=== PATIENT | female | born 1985 | race Asian ===

== ENCOUNTER → 2021-01-22 15:16 | Outpatient (CLI) | payer SELFPAY | PROVIDERS: Visit Provider Physician Assistant | DX: R30.0 Dysuria (principal) | CPT/HCPCS: 87077; 87086; 87186; 87210 ==

== ENCOUNTER → 2021-01-24 12:21 | Outpatient (CLI) | payer SELFPAY ==
[2021-01-24 13:29] LABS: Add Manual Diff / Slide Review NO; Basophils Absolute Auto 100 /uL (0-100); Basophils Percent Auto 0.8 % (0-2); Eosinophils Absolute Auto 300 /uL (0-450); Eosinophils Percent Auto 3.6 % (2-4); Hematocrit 40.6 % (36-46); Hemoglobin 13.2 g/dL (12.0-16.0); Lymphocytes Absolute Auto 2500 /uL (1100-4500); Lymphocytes Percent Auto 33.1 % (25-40); Mean Corpuscular HGB Conc 32.6 % (30-36); Mean Corpuscular Hemoglobin 26.3 PG (26-34); Mean Corpuscular Volume 80.6 fL (80-100); Monocytes Absolute Auto 800 /uL (0-900); Monocytes Percent Auto 10.3 % (3-14); Neutrophils Absolute Auto 4000 /uL (1500-7000); Neutrophils Percent Auto 52.2 % (50-75); Platelet Count 264 X10^3/uL (150-400); Red Blood Cell Count 5.03 X10^6/uL (4.0-5.2); Red Cell Distribution Width 13.7 % (11.6-14.8); White Blood Cell Count 7.7 X10^3/uL (4.5-11.0)
[2021-01-24 13:51] LABS: Alanine Aminotransferase 19 IU/L (<35); Albumin 4.7 g/dL (3.5-5.0); Albumin Globulin Ratio 1.3 (1.0-2.8); Alkaline Phosphatase 66 U/L (38-126); Aspartate Aminotransferase 23 IU/L (14-36); BUN Creatinine Ratio 14.7 (6-22); Bilirubin Total 0.4 mg/dL (0.2-1.3); Blood Urea Nitrogen 10 mg/dL (7-17); Carbon Dioxide 30 mmol/L (22-32); Chloride 102 mmol/L (98-107); Estimated Glomerular Filt Rate > 60.0 mL/min (>60); Globulin 3.7 g/dL (1.7-4.1); Glucose 141 mg/dL (70-100); HEMOLYSIS < 15 (0-50); Potassium 4.6 mmol/L (3.4-5.1); Sodium 138 mmol/L (137-145); Total Protein 8.4 g/dL (6.3-8.2)
== END ==
PROVIDERS: Referring Provider Physician Assistant; Visit Provider Physician Assistant
DX: Z86.39 Personal history of other endocrine, nutritional and metabolic disease (principal)
CPT/HCPCS: 36415; 80053; 83036; 85025

== ENCOUNTER 2021-03-25 13:38 | Emergency (ER) | payer OTHER, MEDICAID, SELFPAY ==
[2021-03-25 13:59] VITALS: BP 125/76; PULSE 90; RESP 18; TEMP 36.4; O2SAT 100; BMI 27.1
--- NOTE | 2021-03-25 14:05 | DI.US.S_ITS ---
PROCEDURE: US OB <= 14 WEEKS FETUS INDICATIONS: PAIN OUTSIDE/PRIOR DATING DATA: Last menstrual period (LMP): 02/12/2021. LMP-based estimated date of delivery (ALEYDA): 11/19/2021. First dating scan (date and location): 03/25/2021. Estimated date of delivery (ALEDYA) from first dating scan: 11/20/2021. TECHNIQUE: Real-time scanning was performed of the fetus and maternal pelvic organs, with image documentation. Endovaginal scanning was also performed to better visualize the fetus and maternal ovaries. COMPARISON: None. FINDINGS: Single intrauterine gestational sac contains a yolk sac but no pole or cardiac motion. The mean sac diameter would correspond with a 5 week 5 day gestation. Small corpus luteum cyst noted in the right ovary. Both ovaries have appropriate echotexture and vascularity. No adnexal mass or free fluid. IMPRESSION: 1. Intrauterine gestational sac contains yolk sac but no pole or cardiac motion. Differential possibilities include normal early , anembryonic and demise. Consider short-term follow-up. Approved by: Eliceo Gilmore M.D. on 03/25/2021 at 14:55
--- NOTE | 2021-03-25 19:45 | ED_ITS ---
HPI - General Adult General Chief complaint: Urogenital-Female Stated complaint: Lower abd/back pain- 6 weeks Time Seen by Provider: 03/25/21 19:45 Source: patient Mode of arrival: Ambulatory History of Present Illness HPI narrative: 35-year-old currently at just under 6 weeks gestational age with a history of polycystic ovarian syndrome and developing type 2 diabetes presents complaining of cough, pleuritic right chest pain and low pelvic pain cramping to her back. She is having no vaginal bleeding. She has noticed no fevers or chills. She continues to be significantly fatigued. Her initial COVID symptoms were noted on March 11 she does have 2 vaccines. She notes the cough has gotten slightly worse over the past 1-2 days. She notes that she has had dysfunctional uterine bleeding with irregular menses since October. Her last menstrual cycle was July 13. She is going to be following up with Dr. Domínguez. At 1 point in the past she had been on metformin for her polycystic ovary disease it sounds like she has not been on that for the last 6 months and is trying to reestablish care with providers at this time. She denies diarrhea, vomiting, lower extremity edema, significant dyspnea, headache tachycardia or other palpitations.. She does note runny nose and mild itchy throat. Related Data Allergies Allergy/AdvReac Type Severity Reaction Status Date / Time No Known Drug Allergies Allergy Unverified 01/22/21 15:12 Review of Systems Review of Systems Narrative: Remainder of complete review of systems is otherwise unremarkable except for that included in the HPI. Patient History Medical History (Updated 03/25/21 @ 20:11 by Yumiko Hurtado MD) Elevated hemoglobin A1c Polycystic ovarian syndrome Social History Smoking Status: Never smoker Smoking Status: Never smoker Exam Initial Vital Signs Initial Vital Signs: Vital Signs Temperature 97.5 F L 03/25/21 13:59 Pulse Rate 90 03/25/21 13:59 Respiratory Rate 18 03/25/21 13:59 Blood Pressure 125/76 03/25/21 13:59 Pulse Oximetry 100 03/25/21 13:59 General: Healthy appearing, in no acute distress. Able to give a complete and coherent history. Well-nourished well-developed HEENT: Moist mucous membranes, normal sclera with reactive pupils, Neck: No JVD, supple Respiratory: Lungs are clear to auscultation, no wheezing no rales no rhonchi. Full and symmetrical air movement Cardiac: Regular rate and rhythm no murmurs no bruits Abdomen: Soft, very mild bilateral deep pelvic tenderness, no rebound or guarding. Good bowel tones, no flank pain Skin: Warm and dry, no rashes Neurologic: Grossly neurologically intact with no obvious asymmetries or abnormalities Extremities: No trauma, well perfused Psych: Cooperative, appropriate insight and affect Course Orders Ordered: ED Orders 03/25/21 14:05 US OB <= 14 weeks fetus Stat Vital Signs Vital signs: Vital Signs - 8 hr 03/25/21 13:59 Temperature 97.5 F L Pulse Rate 90 Respiratory Rate 18 Blood Pressure 125/76 Pulse Oximetry 100 Medical Decision Making Lab Data Labs: Point of Care Testing Test Results Positive Glucose POC 137 Urine Dip Bedside Urine Glucose Negative Bedside Urine Bilirubin - Negative Bedside Urine Ketone - Negative Urine Specific [place] 1.010 Bedside Urine Occult Blood - Negative Bedside Urine pH 6.0 Bedside Urine Protein - Negative Bedside Urine Urobilinogen - Negative Bedside Urine Nitrite - Negative Bedside Urine Leukocytes - Negative Esterase Point of care testing: Point of Care Testing Test Results Positive Glucose POC 137 Urine Dip Bedside Urine Glucose Negative Bedside Urine Bilirubin - Negative Bedside Urine Ketone - Negative Urine Specific [place] 1.010 Bedside Urine Occult Blood - Negative Bedside Urine pH 6.0 Bedside Urine Protein - Negative Bedside Urine Urobilinogen - Negative Bedside Urine Nitrite - Negative Bedside Urine Leukocytes - Negative Esterase Imaging Data US pelvic: Radiologist's Impression: FINDINGS: Single intrauterine gestational sac contains a yolk sac but no pole or cardiac motion.? The mean sac diameter would correspond with a 5 week 5 day gestation. ? Small corpus luteum cyst noted in the right ovary.? Both ovaries have appropriate echotexture and vascularity.? No adnexal mass or free fluid. ? IMPRESSION: ? 1. Intrauterine gestational sac contains yolk sac but no pole or cardiac motion. Differential possibilities include normal early , anembryonic and demise. Consider short-term follow-up. ? Approved by: Eliceo Gilmore M.D. on 03/25/2021 at 14:55? Discharge Plan Departure Patient Disposition: Home Clinical Impression: Miscarriage, threatened, early , COVID-19, Pleurisy Instructions: DI for Threatened , Pleurisy Activity Restrictions/Additional Instructions: Thank you for coming in today The coughing and scratchy throat, along with the discomfort in the right upper chest with deep breathing are all related to your recent COVID infection. Each of those will continue to improve. You do not need any additional treatment or hospitalization for COVID. You can use dextromethorphan, the active ingredient in Robitussin DM cough medicine as well as Tylenol to help with the pain. Both of these are safe with Congratulations on your . The ultrasound did not show a beating heartbeat which we typically do see by 6 weeks. It may be that you are not quite that for along. It may also be that this is a developing miscarriage and that is why you are having the pelvic cramping. Today we page a quantitative beta HCG, this is the hormone, and needs to be redrawn in 3 days to compare. If it is doubling in that time frame things look good for the . If it is not going up or you began having vaginal bleeding in this is more likely a miscarriage Please contact Dr. Domínguez is office so her office can schedule outpatient beta hCG order for March 28 If you have worsening symptoms or problems please return to the ER Referrals: Christina Domínguez MD [Physician] -
[2021-03-25 19:46] VITALS: BP 145/90; PULSE 95; RESP 20; TEMP 36.8; O2SAT 100
[2021-03-25 20:56] LABS: HCG Quantitative /Beta subunit 9913.8 mIU/mL
== END 2021-03-25 20:34 | disposition home or self-care (01) ==
PROVIDERS: Emergency Provider Emergency Medicine
DX: O20.0 Threatened abortion (principal); O98.511 Other viral diseases complicating pregnancy, first trimester; U07.1 COVID-19; O26.891 Other specified pregnancy related conditions, first trimester; R09.1 Pleurisy; Z3A.01 Less than 8 weeks gestation of pregnancy
CPT/HCPCS: 36415; 76801; 76817; 81003; 81025; 82962; 84702; 86900; 86901; 99283

== ENCOUNTER → 2021-03-28 15:02 | Outpatient (CLI) | payer OTHER, MEDICAID, SELFPAY ==
[2021-03-28 17:56] LABS: HCG Quantitative /Beta subunit 21932 mIU/mL
== END ==
PROVIDERS: Referring Provider Obstetrics & Gynecology; Visit Provider Obstetrics & Gynecology
DX: O20.0 Threatened abortion (principal)
CPT/HCPCS: 36415; 84702

== ENCOUNTER 2021-04-23 00:17 | Emergency (ER) | payer OTHER, MEDICAID, SELFPAY ==
[2021-04-23 00:24] VITALS: BP 136/85; PULSE 85; RESP 20; O2SAT 99; BMI 27.6
[2021-04-23 00:40] VITALS: TEMP 36.7
[2021-04-23 01:10] LABS: Bacteria Urine Few (2-10); RBC Urine 1-5/HPF (0-5/HPF); Squamous Epithelial Cell Urine 5-10 /HPF (0-5/HPF); WBC Urine 1-5/HPF (0-5/HPF)
[2021-04-23 01:40] LABS: Add Manual Diff / Slide Review NO; Basophils Absolute Auto 100 /uL (0-100); Basophils Percent Auto 0.8 % (0-2); Eosinophils Absolute Auto 300 /uL (0-450); Eosinophils Percent Auto 2.5 % (2-4); Hematocrit 39.4 % (36-46); Hemoglobin 12.7 g/dL (12.0-16.0); Lymphocytes Absolute Auto 2400 /uL (1100-4500); Lymphocytes Percent Auto 20.3 % (25-40); Mean Corpuscular HGB Conc 32.2 % (30-36); Mean Corpuscular Hemoglobin 25.8 PG (26-34); Mean Corpuscular Volume 79.9 fL (80-100); Monocytes Absolute Auto 900 /uL (0-900); Monocytes Percent Auto 7.7 % (3-14); Neutrophils Absolute Auto 8000 /uL (1500-7000); Neutrophils Percent Auto 68.7 % (50-75); Platelet Count 251 X10^3/uL (150-400); Red Blood Cell Count 4.93 X10^6/uL (4.0-5.2); Red Cell Distribution Width 15.7 % (11.6-14.8); White Blood Cell Count 11.6 X10^3/uL (4.5-11.0)
[2021-04-23 01:43] LABS: BUN Creatinine Ratio 11.5 (6-22); Blood Urea Nitrogen 6 mg/dL (7-17); Calcium 9.2 mg/dL (8.4-10.2); Carbon Dioxide 23 mmol/L (22-32); Chloride 104 mmol/L (98-107); Estimated Glomerular Filt Rate > 60.0 mL/min (>60); Glucose 111 mg/dL (70-100); HEMOLYSIS < 15 (0-50); Potassium 3.9 mmol/L (3.4-5.1); Sodium 137 mmol/L (137-145)
[2021-04-23 02:01] LABS: HCG Quantitative /Beta subunit 84423 mIU/mL
--- NOTE | 2021-04-23 02:09 | ED_ITS ---
HPI - Female Genitourinary General Chief complaint: Urogenital-Female Stated complaint: 9 weeks preg bloody discharge Time Seen by Provider: 04/23/21 01:29 Source: patient Mode of arrival: Ambulatory Limitations: no limitations History of Present Illness HPI Narrative: This is a 35-year-old female who is 10 weeks 2 days. Presents for abdominal cramping with some spotting. Patient has had some mild nausea. She has PCOS and was diagnosed with type 2 diabetes but is diet controlled only. Patient was seen for abdominal cramping and had ultrasound x2 including with Dr. Domínguez who she is established with. She had not been having any vaginal bleeding until the 22 of April on his continued to have some and today the . She has not had any fevers or chills. She has had nausea but no vomiting. No chest pain or shortness of breath. No cough, cold or congestion. She has had some frequency but no dysuria urgency. She has had spotting but no large clots. She describes it as scan or small amount of blood. She has had normal bowel movements. Related Data Home Medications Medication Instructions Recorded Confirmed doxylamine succinate 25 mg tablet 25 mg PO BEDTIME PRN 04/15/21 04/15/21 (Unisom (doxylamine)) prenat.vits,tal,qbz-mwob-halws 1 tab PO DAILY 04/15/21 04/15/21 pyridoxine (vitamin B6) 100 mg 100 mg PO QID 04/15/21 04/15/21 tablet Previous Rx's Medication Instructions Recorded cephalexin 500 mg capsule 500 mg PO BID 5 Days #10 cap 04/23/21 Allergies Allergy/AdvReac Type Severity Reaction Status Date / Time No Known Drug Allergies Allergy Unverified 04/05/21 14:00 Review of Systems Review of Systems ROS Unobtainable: All systems reviewed & are unremarkable except as noted in HPI and below Patient History Medical History Cough COVID-19 virus infection Diabetes Elevated hemoglobin A1c Low back problem Polycystic ovarian syndrome Sinusitis UTI in Surgical History History of wisdom tooth extraction Family History Father Diabetes mellitus Asthma Mother Hypertension Unknown Cervical cancer Sister Thalassemia Sister Iron deficiency anemia Exam Narrative Exam Narrative: GENERAL: Alert and oriented x three, mild distress. HEENT: Head normocephalic, atraumatic, EOMI, pupils reactive, face symmetric, moist mucous membranes NECK: Supple, full range of motion CARDIOVASCULAR: Regular rate and rhythm without murmurs, rubs or gallops. RESPIRATORY: Breath sounds equal bilaterally, no wheezes rales or rhonchi. ABDOMEN: Soft, generalized tenderness. Normoactive bowel sounds all 4 quadrants. No guarding or rebound, rigidity, no mass : No CVA tenderness EXTREMITIES: Normal range of motion, no clubbing or edema. Neurovascularly intact NEUROLOGICAL: Cranial nerves II through XII grossly intact. Moving all extremities SKIN: Warm, dry, no petechiae, no rashes or lesions. Initial Vital Signs Initial Vital Signs: Vital Signs Pulse Rate 85 04/23/21 00:24 Respiratory Rate 20 04/23/21 00:24 Blood Pressure 136/85 04/23/21 00:24 Pulse Oximetry 99 04/23/21 00:24 Course Orders Ordered: ED Orders 04/23/21 00:25 Urine Culture Stat Urine Microscopic Stat 04/23/21 00:50 BMP [Basic Metabolic Panel] Stat CBC Auto Diff [Complete Blood Count AUTO DIFF] Stat HCG Quantitative /Beta subunit Stat 04/23/21 02:33 US renal complete Stat Discontinued Medications Acetaminophen (Acetaminophen 325 Mg Tablet) 650 mg PO NOW ONE Stop: 04/23/21 03:29 Last Admin: 04/23/21 03:34 Dose: 650 mg Documented by: RADHA Cephalexin HCl (Cephalexin 250 Mg Capsule) 500 mg PO NOW ONE Stop: 04/23/21 03:29 Last Admin: 04/23/21 03:35 Dose: 500 mg Documented by: RADHA Reevaluation(s) Reevaluation #1: Reviewed patient's ultrasound findings. Urine culture did show some resistance but not antibiotics patient was on. She does have clinical symptoms. Urine culture was ordered urine had hematuria but no other clear changes. Patient would elect to start antibiotics if she has symptoms. Plan to start her on Keflex. She has OB follow-up today so plan for Ob ultrasound at that time. He art rate was appropriate on ultrasound. Vital Signs Vital signs: Vital Signs - 8 hr 04/23/21 00:24 04/23/21 00:40 04/23/21 03:36 Temperature 98.1 F Pulse Rate 85 81 Respiratory Rate 20 16 Blood Pressure 136/85 117/75 Pulse Oximetry 99 99 MDM - Female Genitourinary Lab Data Result diagrams: 04/23/21 00:50 04/23/21 00:50 Labs: Lab Results 04/23/21 04/23/21 04/23/21 Range/Units 00:25 00:50 00:50 WBC 11.6 H (4.5-11.0) X10^3/uL RBC 4.93 (4.0-5.2) X10^6/uL Hgb 12.7 (12.0-16.0) g/dL Hct 39.4 (36-46) % MCV 79.9 L (80-100) fL MCH 25.8 L (26-34) PG MCHC 32.2 (30-36) % RDW 15.7 H (11.6-14.8) % Plt Count 251 (150-400) X10^3/uL Neut % (Auto) 68.7 (50-75) % Lymph % (Auto) 20.3 L (25-40) % [place] % (Auto) 7.7 (3-14) % Eos % (Auto) 2.5 (2-4) % Baso % (Auto) 0.8 (0-2) % Neut # (Auto) 8000 H (5919-7429) /uL Lymph # (Auto) 2400 (2339-4986) /uL [place] # (Auto) 900 (0-900) /uL Eos # (Auto) 300 (0-450) /uL Baso # (Auto) 100 (0-100) /uL Sodium 137 (137-145) mmol/L Potassium 3.9 (3.4-5.1) mmol/L Chloride 104 (98-107) mmol/L Carbon Dioxide 23 (22-32) mmol/L BUN 6 L (7-17) mg/dL Creatinine 0.52 (0.52-1.04) mg/dL Estimated GFR > 60.0 (>60) mL/min BUN/Creatinine Ratio 11.5 (6-22) Glucose 111 H (70-100) mg/dL Calcium 9.2 (8.4-10.2) mg/dL HCG, Quant 56526 mIU/mL Urine RBC 1-5/hpf (0-5/HPF) Urine WBC 1-5/hpf (0-5/HPF) Ur Squamous Epith Cells 5-10 /hpf H (0-5/HPF) Urine Bacteria Few (2-10) H (None) Ur Culture Indicated? Culture not indicate Point of Care Testing Test Results Positive Urine Dip Bedside Urine Glucose Negative Bedside Urine Bilirubin - Negative Bedside Urine Ketone - Negative Urine Specific [place] 1.015 Bedside Urine Occult Blood +++ Bedside Urine pH 6.0 Bedside Urine Protein - Negative Bedside Urine Urobilinogen - Negative Bedside Urine Nitrite - Negative Bedside Urine Leukocytes - Negative Esterase Imaging Data renal US.: Radiologist's Impression: Normal kidneys. Single live intrauterine gestation with heart rate of 160. MDM Narrative Medical decision making narrative: This is a 35-year-old female at 10 into with vaginal bleeding and pelvic cramping. Patient has had cramping but no bloody discharge. Her labs are appropriate, she is O positive. Patient has had some urinary symptoms. Urine is inconclusive both her symptoms she elects start antibiotics to purnimas michelle pineda. Renal ultrasound was obtained she has had some flank discomfort and does not show acute changes. Heart rates appropriate. Patient has an appointment 2 day with her OBGYN which she is going to attend so pelvic ultrasound was deferred until she sees her OB. Discharge Plan Departure Patient Disposition: Home Clinical Impression: Vaginal bleeding in Instructions: DI for Vaginal Bleeding During Activity Restrictions/Additional Instructions: Follow up with Dr. Domínguez at your appointment today. Urine culture is pending. You may take keflex 1 tablet twice daily x 5 days. Prescription sent to [place] pharmacy. Please return for fever, new worsening abdominal, back or flank pain, persistent vomiting, worsening vaginal bleeding going through more than 1 pad an hour, lightheadedness or passing out, new chest pain or shortness of breath or other new or concerning symptoms. Prescriptions: New cephalexin 500 mg capsule 500 mg PO BID 5 Days Qty: 10 0RF No Action prenat.vits,tal,cuj-hymu-icmyn Tablet 1 tab PO DAILY 0RF Unisom (doxylamine) 25 mg tablet 25 mg PO BEDTIME PRN0RF pyridoxine (vitamin B6) 100 mg tablet 100 mg PO QID 0RF Referrals: [place],Christina, MD [Physician] - Miscellaneous,Doctor, MD [Primary Care Provider] -
--- NOTE | 2021-04-23 02:33 | DI.US.S_ITS ---
PROCEDURE: US RENAL COMPLETE INDICATIONS: BACK/FLANK PAIN TECHNIQUE: Real-time scanning was performed of the kidneys and bladder, with image documentation. COMPARISON: None. FINDINGS: Kidneys: Kidneys are normal in size. Right kidney measures 12.3 cm long; left kidney measures 10.5 cm long. Right renal cortical thickness is 2.1 cm; left renal cortical thickness is 1.9 cm. Renal cortical echotexture is normal. No hydronephrosis or nephrolithiasis. No suspicious solid mass lesions. Bladder: Urinary bladder was not well imaged as it was not distended at time of examination. Miscellaneous: No free pelvic fluid. Single living intrauterine gestation with heart rate measuring 160 beats per minute. IMPRESSION: Normal sonographic appearance of the bilateral kidneys. No significant discrepancy with the dope and fabric worker radiology preliminary report. Dictated by: Mohan Merrill M.D. on 04/23/2021 at 7:06 Approved by: Mohan Merrill M.D. on 04/23/2021 at 7:07
[2021-04-23] MEDS: ACETAMINOPHEN 325 MG TABLET 650 MG PO (03:34)
[2021-04-23] MEDS: cephALEXin 250 MG CAPSULE 500 MG PO (03:35)
[2021-04-23 03:36] VITALS: BP 117/75; PULSE 81; RESP 16; O2SAT 99
== END 2021-04-23 03:45 | disposition home or self-care (01) ==
PROVIDERS: Emergency Provider Emergency Medicine
DX: O20.9 Hemorrhage in early pregnancy, unspecified (principal); Z3A.10 10 weeks gestation of pregnancy; O99.810 Abnormal glucose complicating pregnancy
CPT/HCPCS: 36415; 76770; 80048; 80053; 81003; 81015; 81025; 83615; 84550; 84702; 85025; 87086; 99283; 99284

== ENCOUNTER → 2021-04-23 12:13 | Outpatient (CLI) | payer OTHER, MEDICAID, SELFPAY ==
[2021-04-23 13:34] LABS: Alanine Aminotransferase 13 IU/L (<35); Albumin 4.6 g/dL (3.5-5.0); Albumin Globulin Ratio 1.3 (1.0-2.8); Alkaline Phosphatase 45 U/L (38-126); Aspartate Aminotransferase 22 IU/L (14-36); BUN Creatinine Ratio 9.8 (6-22); Bilirubin Total 0.4 mg/dL (0.2-1.3); Blood Urea Nitrogen 6 mg/dL (7-17); Calcium 9.5 mg/dL (8.4-10.2); Carbon Dioxide 27 mmol/L (22-32); Chloride 102 mmol/L (98-107); Estimated Glomerular Filt Rate > 60.0 mL/min (>60); Globulin 3.6 g/dL (1.7-4.1); Glucose 98 mg/dL (70-100); HEMOLYSIS < 15 (0-50); Lactate Dehydrogenase 282 U/L (313-618); Potassium 3.8 mmol/L (3.4-5.1); Sodium 136 mmol/L (137-145); Total Protein 8.2 g/dL (6.3-8.2); Uric Acid 3.9 mg/dL (2.5-6.2)
== END ==
PROVIDERS: Referring Provider Obstetrics & Gynecology; Visit Provider Obstetrics & Gynecology
DX: O99.810 Abnormal glucose complicating pregnancy (principal)
CPT/HCPCS: 36415; 80053; 83615; 84550

== ENCOUNTER → 2021-05-07 08:29 | Outpatient (CLI) | payer OTHER, MEDICAID, SELFPAY ==
--- NOTE | 2021-05-09 17:23 | DIAB.INIT ---
Initial Diabetes Education Assessment Name: Anna Valderrama Dx: Diabetes in Provider: Frankford ALEYDA: 11/24/21 Weeks: 11 Anna presents for initial visit regarding diabetes in . +FH father T2DM. 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 Endorses PMH of PCOS in 2011, was on Metformin. Antoine increased hunger with Metformin and stopped. Tried to treat with diet and exercise for one year successfully. Seemed difficulty to sustain. [place] stressful job, no menses for a few months. Tried juice detox diet, which she felt was helpful. Late 2019 she noticed that her BG were elevated. Diagnosed with T2Dm in Feb 2020. She started Metformin again 500mg BID. Took Metformin 3 months, did not cont. Reports that last January she came into clinic with a bladder infection and found hgA1c 7%. High carb intake, primarily with amt of rice. Diet recall: 10a: 1/2c grits with pro ; 1.5-2c rice with veg and pro ; cereal with banana and milk (15-90g CHO) 2-3p: 2c rice with sardines and veg +/- fruit (90-105g CHO) 7-8p: 1/2-1c rice with pro and veg ; 1/2c potato with pro and veg 15-45g CHO) 11p: +/- milk with crackers (29g CHO) Beverages: 6oz water with 1TBS sugar and lemon (15g CHO), 2-3L water, 8oz milk Anthropometrics: Ht: 63 Wt: 151# today Prepreg wt: 156.7# Wt changes: -5.7# Physical Activity: Was walking 2 x per week for 60 min, weather dependent. Less walking lately due to concerns with bleeding. This has subsided per report. She is interested in trying yoga. Self-Monitoring Blood Glucose: 239 mg/dL highest BG reading, high carb intake reported, earlier this month. Sometimes 98 fasting. No consistent SMBG. Has a hard time with finger pricks. Reported BG below. No meter for review. Most elevated. Date Pre Post Pre Post Pre Post HS 2/ 158 2hr 2/14 117 143 2hr 3/2 239 2hr 119 2hr 122 2hr 3/15 198 2hr rice and scarlet Diabetes Medications: None Pertinent Labs: HgA1c: 7% 01/2021 Past Medical History: (Last Updated 04/26/21 @ 19:10 by Juliane Samson) Acne (~2011) Chicken pox Childhood Cough COVID-19 virus infection Diabetes (~2020) Disc prolapse (~2015) Elevated hemoglobin A1c Frequent UTI (~2020) History of wisdom tooth extraction Irregular menstrual cycle (~2011) Low back problem Mumps Childhood Ovarian cyst (~2011) Painful menstrual periods (~2011) Polycystic ovarian syndrome Rhinosinusitis (~2010) Sinusitis Sleep apnea (~2017) UTI in Intervention: This participant was very receptive. Provided appropriate educational handouts. Discussed the following topics: Completed intake assessment. Discussed barriers to care. Pathophysiology of type 2 diabetes in , genetic predisposition and minority risk, impact hormones on insulin resistance in 2nd trimester HgA1c Importance of self-monitoring, how often, and when to check. FBG and pc Plate Method, impact of macronutrients on blood sugar, meal timing, carbohydrate counting, pairing macronutrients and spreading out carbohydrates for better blood glucose management General recommended servings for carbohydrates at meals and snacks Role of physical activity and following provider guidelines for safety Created SMART goals for patient self-care and success. Goals: Reduce rice intake to 1c at meals Dont eat fruit with rice at meals (move to snacks) Check BG 4x per day, if she can Try yoga Follow-up: TAMMI ROCHE follow-up in 1 week for BG review. Anna may be a good candidate for DM medication during given 01/2021 HgA1c and reported hyperglycemia. Though it is possible that with great reduction in carb intake and increase in safe physical activity her numbers will come down. Will re-eval in one week. She sees OB this week. Judy Israel RDN, [facility] Certified Diabetes Care and Supervisor Word Processing P: [phone] Thank you for this referral
== END ==
PROVIDERS: PCP Family Medicine; Referring Provider Obstetrics & Gynecology; Visit Provider Obstetrics & Gynecology
DX: O24.410 Gestational diabetes mellitus in pregnancy, diet controlled (principal); Z3A.11 11 weeks gestation of pregnancy; Z71.3 Dietary counseling and surveillance
CPT/HCPCS: G0108

== ENCOUNTER → 2021-05-13 10:40 | Outpatient (CLI) | payer OTHER, MEDICAID, SELFPAY ==
--- NOTE | 2021-05-13 13:02 | DIAB.FU ---
Follow-up Diabetes Education Assessment Name: Anna Valderrama Time: 10:40-11:35a Dx: Diabetes in Provider: Makinen ALEYDA: 11/24/21 Weeks: 12 Anna presents for follow-up visit regarding diabetes in . She presents with partner, Lencho. Anna has been checking BG 3-4 x per day. Most numbers are elevated indicating potential need for medication management. She has reduced her carb intake, especially rice to 1c or less at meals. Minimal changes to physical activity. States she feels pretty comfortable taking an oral medication to manage DM. In review of food intake, most meals are around 45g CHO, some 60g meals. Endorses fasting 8+ hours overnight (often 10-12 hours). Endorses some nausea. Anthropometrics: Ht: 63 Wt: 150# last OB visit on 05/10 Prepreg wt: 159# Wt changes: -9# Physical Activity: No program. Main barrier is she feels she is very sensitive to the cooler weather. Does not want to walk outside in weather. Limited in gym usage due to she does not drive. Plans to try video exercises at home this week. Self-Monitoring Blood Glucose: All but one elevated FBG this week. Pc 2 hour: 3/5 elevated breakfast, 1/3 elevated lunch, 3/5 elevated dinner. Also, states she has been using a relative's meter and buying supplies out of pocket. No rx on file for SMBG supplies currently. Date Pre Post Pre Post Pre Post HS 05/08 107 94 148 153 05/09 91 127 112 117 / 103 94 109 4/2 102 138 122 /3 101 126 122 /4 107 165 Diabetes Medications: None Pertinent Labs: HgA1c: 7% 01/2021 Past Medical History: (Last Updated 04/26/21 @ 19:10 by Juliane Samson) Acne (~2011) Chicken pox Childhood Cough COVID-19 virus infection Diabetes (~2020) Disc prolapse (~2015) Elevated hemoglobin A1c Frequent UTI (~2020) History of wisdom tooth extraction Irregular menstrual cycle (~2011) Low back problem Mumps Childhood Ovarian cyst (~2011) Painful menstrual periods (~2011) Polycystic ovarian syndrome Rhinosinusitis (~2010) Sinusitis Sleep apnea (~2017) UTI in Intervention: This participant was very receptive. Provided appropriate educational handouts. Discussed the following topics: Recent blood sugar results and trends Medication management potential and safety Review of general nutrition recommendations and current intake Physical activity plan and impact on blood sugars Importance of getting meter/supply rx to avoid out of pocket expense. Created SMART goals for patient self-care and success. Goals: Reduce rice intake to 1c at meals - met Dont eat fruit with rice at meals (move to snacks)- met Check BG 4x per day, if she can - met Try yoga- in progress Try walking videos- new Cont BG checks- cont Set up portal to message provider prn- new Follow-up: TAMMI ROCHE follow-up in 1-2 weeks. Will pair visit with OB visit. Transportation is a concern for her. It does seem that she may benefit from medication management. She is concerned that maybe a new meter may provide better results. With previous HgA1c and current BG readings, medication to reduce fasting BG may be beneficial. Will message provider about current BG trends and meter rx. Judy Israel RDN, [facility] Certified Diabetes Care and [employer] Operator P: [phone] Thank you for this referral
== END ==
PROVIDERS: PCP Family Medicine; Referring Provider Obstetrics & Gynecology; Visit Provider Obstetrics & Gynecology
DX: O24.410 Gestational diabetes mellitus in pregnancy, diet controlled (principal); Z3A.12 12 weeks gestation of pregnancy; Z71.3 Dietary counseling and surveillance
CPT/HCPCS: G0108

== ENCOUNTER → 2021-05-23 16:53 | Outpatient (CLI) | payer OTHER, MEDICAID, SELFPAY ==
--- NOTE | 2021-05-24 17:20 | DIAB.GDFU ---
Follow-up Gestational Diabetes Assessment Name: Anna Valderrama Date: 05/24/21 Time: 5-745p Dx: Diabetes in Provider: Sang ALEYDA: 11/24/21 Weeks: 13 Anna presents for follow-up visit regarding diabetes in . She presents with partner, Lencho. Frequent hyperglycemia. Saw OB today and plans to start Metformin 500mg BID. Reports increase in n/v recently. Aims for 2.5-3L but sometimes only 2L. Reports dry lips and headaches. Possibly some dehydration. Diet recall indicates reduced carb intake at meals. Skipping HS snack recently. Anthropometrics: Ht: 63 Wt: 150.2# today at OB Prepreg wt: 159# Wt changes: -8.8# Physical Activity: Tried walking videos and yoga. No consistent program. Does not walk outside due to cool weather. Self-Monitoring Blood Glucose: waking at 1030am due to late night schedule with 's work hours. This results in 2 meals per day and therefore 2 pc readings. Checking FBG and 2hr pc. Bolded elevations below. 4/7 elevated FBG, 4/7 elevated pc breakfast, 4/6 elevated pc dinner readings. Only in range FBG is when she goes >12hours without eating due to nausea. Also received meter and supply rx today. Date Pre Post Pre Post Pre Post HS 05/17 88 142 131 4/9 86 108 134 /10 104 148 151 /11 103 129 144 /12 100 118 136 /13 105 132 150 /14 90 168 Diabetes Medications: Rx'd Metformin 500mg BID Pertinent Labs: HgA1c: 7% 01/2021 Intervention: This participant was very receptive. Provided appropriate educational handouts. 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 Thank you for this referral
== END ==
PROVIDERS: PCP Family Medicine; Referring Provider Obstetrics & Gynecology; Visit Provider Obstetrics & Gynecology
DX: O24.415 Gestational diabetes mellitus in pregnancy, controlled by oral hypoglycemic drugs (principal); Z71.3 Dietary counseling and surveillance; Z3A.13 13 weeks gestation of pregnancy
CPT/HCPCS: G0108

== ENCOUNTER → 2021-06-07 11:59 | Outpatient (CLI) | payer OTHER, MEDICAID, SELFPAY ==
[2021-06-07 12:36] LABS: Add Manual Diff / Slide Review NO; Basophils Absolute Auto 100 /uL (0-100); Basophils Percent Auto 0.5 % (0-2); Eosinophils Absolute Auto 200 /uL (0-450); Eosinophils Percent Auto 2.1 % (2-4); Hematocrit 39.8 % (36-46); Hemoglobin 13.3 g/dL (12.0-16.0); Lymphocytes Absolute Auto 1600 /uL (1100-4500); Mean Corpuscular HGB Conc 33.4 % (30-36); Mean Corpuscular Hemoglobin 27.4 PG (26-34); Monocytes Absolute Auto 800 /uL (0-900); Monocytes Percent Auto 7.5 % (3-14); Neutrophils Absolute Auto 7800 /uL (1500-7000); Neutrophils Percent Auto 74.9 % (50-75); Platelet Count 233 X10^3/uL (150-400); Red Blood Cell Count 4.85 X10^6/uL (4.0-5.2); Red Cell Distribution Width 15.9 % (11.6-14.8); White Blood Cell Count 10.4 X10^3/uL (4.5-11.0)
[2021-06-07 12:53] LABS: Hemoglobin A1C% w Est Avg Glu 6.1 % (4.0-6.0)
--- NOTE | 2021-06-07 17:11 | DIAB.FU ---
Addendum entered by Judy Israel 06/14/21 16:59: 06/14/21 phone call check-in. OB increased Metformin to 1000mg pm and keeping 500mg am. Seems to be very helpful in BG management. Anna seems to be very worried when BG are <90 and fears for lows. Discussed this in depth (low risk of hypo, s/s of hypo, hypo tx). All recent FBG since starting Metformin in goal. Most after meal in range now. Elevations that occur are r/t excessive CHO intake. For example, this morning she consumed spring rolls and chocolate beverage, BG pc was 148mg/dL. Encouraged her to avoid sugar sweetened beverages. f/u in one week in-person. Original Note: Follow-up Diabetes Education Assessment Name: Anna Valderrama Date: 06/07/21 Time: 1230-130p Dx: Diabetes in Provider: Sang ALEYDA: 11/24/21 Weeks: 15 Anna presents for follow-up visit regarding diabetes in . She presents with partner, Lencho. Established care with PCP today. Has been taking Metformin BID with minimal GI upset. States she has not been taking Metformin if BG is low. Describes a time of skipping dose at night when pc reading was 112 mg/dL or potentially when FBG in 80s. Worried about lows, despite low risk. Improved nausea and wt gain. Denies any s/s dehydration, no more dry lips. Fluids 1.5-2L per day reportedly. Endorses high carb intake, ie 3c rice + fruit resulting in BG 147mg/dL. States she sometimes feels very hungry. This may in part due to long periods of fasting. Eats 3x per day, limited snacks and only 2 meals. Endorses feeling fatigue after meals. Anthropometrics: Ht: 63 Wt: 151.4# today at PCP Prepreg wt: 159# Wt changes: +1.2# since last visit Physical Activity: Limited. No program. More amenable to walking outside now that weather is warmer. Self-Monitoring Blood Glucose: Much improved FBG. 1/5 recent elevations. pc breakfast 1/4 elevations. 3/4 elevated pc dinner. Elevations seem r/t high carb intake. States when she sticks to 1c rice, numbers are in range. Did not check for a couple days due to birthday and family visit. Date Pre Post Pre Post Pre Post HS 05/29 92 111 112 05/30 92 114 129 06/03 06/04 06/05 98 147 137 06/06 87 117 128 06/07 89 Diabetes Medications: 500mg Metformin BID Pertinent Labs: Improved HgA1c form prior 7%. Goal recc prepregnancy 6.5% Hemoglobin A1c 6.1 % (4.0-6.0) H 06/07/21 12:04 Past Medical History: (Last Updated 05/23/21 @ 16:56 by Christina Domínguez MD) Acne (~2011) Chicken pox Childhood Cough COVID-19 virus infection Diabetes (~2020) Disc prolapse (~2015) Elevated hemoglobin A1c Frequent UTI (~2020) History of wisdom tooth extraction Irregular menstrual cycle (~2011) Low back problem Mumps Childhood Ovarian cyst (~2011) Painful menstrual periods (~2011) Polycystic ovarian syndrome Rhinosinusitis (~2010) Sinusitis Sleep apnea (~2017) UTI in Intervention: This participant was very receptive. Provided appropriate educational handouts. Discussed the following topics: Recent blood sugar results and trends Medication management, low risk for lows with Metformin, enc her to cont taking at this time. Fluids recs and hydration Review of general nutrition recommendations and current intake, eating small frequent meals/snacks to prevent over consumption / excessive hunger Physical activity plan and impact on blood sugars Importance of getting BG in range early for health and baby and mom Created SMART goals for patient self-care and success. 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 Judy Israel RDN, KALEY Certified Diabetes Care and Animal Care Worker P: [phone] Thank you for this referral
[2021-06-08 06:11] LABS: RPR Screen Non Reactive (Non Reactive)
[2021-06-08 07:22] LABS: Varicella IgG Antibody 571 index (Immune >165)
[2021-06-10 17:12] LABS: Hepatitis B Surface Antigen NEGATIVE s/c (NEGATIVE)
[2021-06-10 17:59] LABS: HIV 1 & 2 Ab/Ag 4th Gen Combo NEGATIVE (NEGATIVE); Hep C Virus Ab w/Reflex Quant NEGATIVE s/c (NEGATIVE)
== END ==
PROVIDERS: PCP Family Medicine; Referring Provider Obstetrics & Gynecology; Visit Provider Obstetrics & Gynecology
DX: O24.415 Gestational diabetes mellitus in pregnancy, controlled by oral hypoglycemic drugs (principal); Z3A.15 15 weeks gestation of pregnancy; Z71.3 Dietary counseling and surveillance
CPT/HCPCS: 36415; 80055; 83036; 86787; 86803; 86850; 86900; 86901; 87389; G0108

== ENCOUNTER → 2021-06-11 09:51 | Outpatient (CLI) | payer OTHER, MEDICAID, SELFPAY ==
[2021-06-11 12:07] LABS: Appearance Urine UA CLEAR; Bilirubin Urine UA NEGATIVE (NEGATIVE); Glucose Urine UA 1+ g/dL (Negative); Ketones Urine UA NEGATIVE (NEGATIVE); Leukocyte Esterase Urine UA 2+ (NEGATIVE); Nitrite Urine UA NEGATIVE (Negative); Occult Blood Urine UA NEGATIVE (Negative); Protein Urine UA NEGATIVE (Negative); Specific Gravity Urine UA <=1.005 (1.000-1.035); Urobilinogen Urine UA 0.2 E.U./dL (0.2)
[2021-06-11 12:33] LABS: Bacteria Urine Moderate (10-30); Color Urine UA STRAAW; Culture Indicated Urine Specimen Cultured; RBC Urine 0-1/HPF (0-5/HPF); Squamous Epithelial Cell Urine 5-10 /HPF (0-5/HPF); WBC Urine 5-10/HPF (0-5/HPF)
[2021-06-13 23:07] LABS: AFP Value 30.4 ng/mL (.); Insulin Dep Diabetes No (.); OSBR Risk 1IN 10000 (.); Results Report (.); Test Results *Screen Negative* (.)
== END ==
PROVIDERS: PCP Family Medicine; Referring Provider Obstetrics & Gynecology; Visit Provider Obstetrics & Gynecology
DX: Z34.02 Encounter for supervision of normal first pregnancy, second trimester (principal); Z3A.16 16 weeks gestation of pregnancy; Z34.00 Encounter for supervision of normal first pregnancy, unspecified trimester
CPT/HCPCS: 81003; 81015; 82105; 87086

== ENCOUNTER → 2021-06-21 11:04 | Outpatient (CLI) | payer OTHER, MEDICAID, SELFPAY ==
--- NOTE | 2021-06-25 16:44 | DIAB.FU ---
Follow-up Diabetes Education Assessment Name: Anna Valderrama Date: 06/21/21 Time: 11:10-11:45a Dx: Diabetes in Provider: Sang ALEYDA: 11/24/21 Weeks: 17 Anna presents for follow-up with partner, Lencho. She is having a baby girl! (Margy) Continues on increased Metformin dose in the evening without SE. No longer worried about lows since last conversation. Endorses spreading carb intake out through the day, as discussed last visit. Reports reduced excessive hunger since eating more consistently. Still drinking chocolate beverage, but in smaller portion (15g CHO) Keeping rice to 1c. Physical Activity: No program. Trying to move more. Went fishing recently, which she felt was pretty physical. Contemplative stage of change. Self-Monitoring Blood Glucose: 03/18 elevated FBG. All 2hr pc readings in goal. Waking late morning, so often only eating 2 meals per day and snacks. Date Pre Post Pre Post Pre Post HS 06/15 93 107 89 06/16 82 107 92 06/17 86 119 102 06/18 96 113 91 06/19 82 112 119 06/20 81 101 91 06/21 100 Diabetes Medications: Metformin 500mg AM and 1000 mg PM Pertinent Labs: Improved HgA1c form prior 7%. Goal recc prepregnancy 6.5% or less Hemoglobin A1c 6.1 % (4.0-6.0) H 06/07/21 12:04 Past Medical History: (Last Updated 05/23/21 @ 16:56 by Christina Domínguez MD) Acne (~2011) Chicken pox Childhood Cough COVID-19 virus infection Diabetes (~2020) Disc prolapse (~2015) Elevated hemoglobin A1c Frequent UTI (~2020) History of wisdom tooth extraction Irregular menstrual cycle (~2011) Low back problem Mumps Childhood Ovarian cyst (~2011) Painful menstrual periods (~2011) Polycystic ovarian syndrome Rhinosinusitis (~2010) Sinusitis Sleep apnea (~2017) UTI in Intervention: This participant was very receptive. Provided appropriate educational handouts. Discussed the following topics: Recent blood sugar results and trends Medication management Review of general nutrition recommendations and current intake Physical activity plan and impact on blood sugars, trying to be active Created SMART goals for patient self-care and success. Goals: Exercise 3x per week safely- not met Add HS snack - met Keep rice to 1c- met Avoid sugar sweetened beverages- improved Follow-up: TAMMI ROCHE follow-up in 2-3 weeks Judy Israel RDN, KALE[facility] Certified Diabetes Care and Technical Service Representative P: [phone] Thank you for this referral
== END ==
PROVIDERS: PCP Family Medicine; Referring Provider Obstetrics & Gynecology; Visit Provider Obstetrics & Gynecology
DX: O24.415 Gestational diabetes mellitus in pregnancy, controlled by oral hypoglycemic drugs (principal); Z3A.17 17 weeks gestation of pregnancy; Z71.3 Dietary counseling and surveillance
CPT/HCPCS: G0108

== ENCOUNTER → 2021-07-10 14:30 | Outpatient (CLI) | payer OTHER, MEDICAID, SELFPAY ==
--- NOTE | 2021-07-10 14:31 | DI.US.S_ITS ---
PROCEDURE: US OB >= 14 WEEKS FETUS INDICATIONS: ANATOMY OUTSIDE/PRIOR DATING DATA: Last menstrual period (LMP): February 12, 2021 LMP-based estimated date of delivery (ALEYDA): November 19, 2021 First dating scan (date and location): March 25, 2021 Estimated date of delivery (ALEYDA) from first dating scan: November 20, 2021 The calculations are made using the ultrasound ALEYDA of November 20, 2021 TECHNIQUE: Real-time scanning was performed of the fetus, with image documentation and biometric measurements. Endovaginal scanning: Perform COMPARISON: None. FINDINGS: General: A single living intrauterine gestation is present. Presentation: Breech Placenta: Placental position is anterior, without previa. Amniotic fluid index: 12.5 cm, normal range is 5-24 cm. Single deepest vertical pocket is 3.7 cm. heart rate: 144 beats per minute. Maternal cervical canal: Closed and 3.0 cm long. Normal lower limit is 2.5 cm. biometrics: Biparietal diameter: 20 weeks 1 day Head circumference: 20 weeks 6 days Abdominal circumference: 20 weeks 6 days Femur length: 21 weeks 1 day Clinically estimated gestational age: 21 weeks 0 days Composite gestational age from present scan: 20 weeks 5 days Estimated weight and percentile: 388 grams; 41st percentile Anatomic survey: Neuro: Ventricles are non-dilated at less than 10 mm. Cisterna magna is normal at 3-11 mm. Cerebellum is normal in size and morphology. Nuchal skin fold: Normal at less than 6 mm between 14-21 weeks gestational age. Face: Nose and lips, facial profile are normal. Spine: No evidence for spina bifida. Heart: 4-chambered heart is present, with normal ventricular outflow tracts. Diaphragm: Diaphragm is intact. Stomach: Left-sided stomach is present. Kidneys: No hydronephrosis. Normal is less than 5 mm in 2nd trimester, less than 7 mm in 3rd trimester. Cord: 3-vessel cord has orthotopic insertion. Bladder: Normal in size. Extremities: All 4 extremities identified. IMPRESSION: 1. Single living intrauterine with appropriate interval growth. 2. Anatomic survey. Dictated by: Macie Padgett MD, PhD on 07/11/2021 at 9:45 Approved by: Macie Padgett MD, PhD on 07/11/2021 at 9:47
== END ==
PROVIDERS: PCP Family Medicine; Referring Provider Obstetrics & Gynecology; Visit Provider Obstetrics & Gynecology
DX: Z34.02 Encounter for supervision of normal first pregnancy, second trimester (principal); Z3A.20 20 weeks gestation of pregnancy
CPT/HCPCS: 76811

== ENCOUNTER → 2021-07-10 15:17 | Outpatient (CLI) | payer OTHER, MEDICAID, SELFPAY ==
--- NOTE | 2021-07-12 17:07 | DIAB.FU ---
Follow-up Diabetes Education Assessment Name: Anna Valderrama Date: 07/10/21 Time: 330-415p Dx: Diabetes in Provider: Sang ALEYDA: 11/24/21 Weeks: 20 Anna presents for follow-up regarding T2DM in . States she has been often able to keep carb portions in rec. Recently some hyperglycemia after breakfast due to large portions, ie 1c rice, eggs, and noodles (90g) or tevin beverage with egg, two bread and fruit (60-75gCHO). Sometimes goes >12 hours overnight without eating and is very hungry at breakfast understandably. This results in large portions and high BG . Endorses 1L water daily, heart burn, difficulty getting comfortable at night. Physical Activity: No program. Has been discussed at previous visits. Self-Monitoring Blood Glucose: FBG in goal. 3/ elevated pc breakfast. no elevations after dinner. Checking FBG and 2 hr pc. Date Pre Post Pre Post Pre Post HS 07/04 86 102 107 07/05 81 112 111 07/06 87 109 96 07/07 90 159 108 07/08 07/09 87 149 97 07/10 91 141 Diabetes Medications: Metformin 500mg AM and 1000 mg PM Pertinent Labs: Improved HgA1c form prior 7% down to 6.1%. Factors in may impact results. Goal recc prepregnancy 6.5% or less Past Medical History: (Last Updated 05/23/21 @ 16:56 by Christina Domínguez MD) Acne (~2011) Chicken pox Childhood Cough COVID-19 virus infection Diabetes (~2020) Disc prolapse (~2015) Elevated hemoglobin A1c Frequent UTI (~2020) History of wisdom tooth extraction Irregular menstrual cycle (~2011) Low back problem Mumps Childhood Ovarian cyst (~2011) Painful menstrual periods (~2011) Polycystic ovarian syndrome Rhinosinusitis (~2010) Sinusitis Sleep apnea (~2017) UTI in Intervention: This participant was very receptive. Provided appropriate educational handouts. Discussed the following topics: Recent blood sugar results and trends spreading meals out to avoid over hunger heart burn and meal timing breakfast recs water recs and impact on BG Created SMART goals for patient self-care and success. Goals: Aim for 2-3L water per day Try to reduce breakfast carbs Avoid 12 hours fasting overnight Follow-up: TAMMI ROCHE follow-up in 3 weeks Judy Israel RDN, [facility] Certified Diabetes Care and Tool And Die Maker P: [phone] Thank you for this referral
== END ==
PROVIDERS: PCP Family Medicine; Referring Provider Obstetrics & Gynecology; Visit Provider Obstetrics & Gynecology
DX: O24.913 Unspecified diabetes mellitus in pregnancy, third trimester (principal); Z3A.20 20 weeks gestation of pregnancy; Z79.84 Long term (current) use of oral hypoglycemic drugs; Z71.3 Dietary counseling and surveillance
CPT/HCPCS: G0108

== ENCOUNTER → 2021-08-01 07:50 | Outpatient (CLI) | payer OTHER, MEDICAID, SELFPAY ==
--- NOTE | 2021-08-02 17:51 | DIAB.FU ---
Follow-up Diabetes Education Assessment Name: Anna Valderrama Date: 08/01/21 Time: 230-3p Dx: Diabetes in Provider: Sang ALEYDA: 11/24/21 Weeks: 24 Anna presents for follow-up visit regarding GDM by virtual visit via [facility]. Broken front tooth, has appt with dentist. c/o heart burn in evening. Dinner has been at 8-9pm. No evening snack. Goes to bed at 12-1a. waking up at 10-11a very hungry, which results in large carb portions sometimes: eggs with 1-2c rice or bread, chocolate drink, and fruit Feels she has?lost my control? Really want to eat favorite foods without restriction. States that she does not want to carbs at breakfast. Tells me that she would prefer to increase metformin. Additional 500mg in the am might keep BG in goal after breakfast, encouraged her to discuss further with OB. Having 2L of water most days. Sees OB 08/06 Physical Activity: no program Self-Monitoring Blood Glucose: 05/16 elevated postprandial readings due to high carb intake Date Pre Post Pre Post Pre Post 07/26 90 113 x 07/27 86 122 115 07/28 83 116 103 07/29 86 102 109 07/30 88 124 112 07/31 86 143 127 08/01 89 138 Diabetes Medications: Metformin 500mg AM and 1000 mg PM Pertinent Labs: Improved HgA1c form prior 7% down to 6.1%. Factors in may impact results. Goal recc prepregnancy 6.5% or less Past Medical History: (Last Updated 05/23/21 @ 16:56 by Christina Domínguez MD) Acne (~2011) Chicken pox Childhood Cough COVID-19 virus infection Diabetes (~2020) Disc prolapse (~2015) Elevated hemoglobin A1c Frequent UTI (~2020) Irregular menstrual cycle (~2011) Low back problem Mumps Childhood Ovarian cyst (~2011) Painful menstrual periods (~2011) Polycystic ovarian syndrome Rhinosinusitis (~2010) Sinusitis Sleep apnea (~2017) UTI in Intervention: This participant was very receptive. Provided appropriate educational handouts. Discussed the following topics: Recent blood sugar results and trends Medication management to discuss with OB Review barriers and emotions around reduced carb portions Created SMART goals for patient self-care and success. Goals: Aim for 2-3L water per day - met Try to reduce breakfast carbs - not met Avoid 12 hours fasting overnight - not met Try chocolate protein drink instead of sweetened chocolate drink- new Discuss meds with OB Follow-up: TAMMI ROCHE follow-up in 3 weeks uJdy Israel RDN, AZAELES Certified Diabetes Care and Web Ui Developer P: [phone] Thank you for this referral
== END ==
PROVIDERS: PCP Family Medicine; Referring Provider Obstetrics & Gynecology; Visit Provider Obstetrics & Gynecology
DX: O24.415 Gestational diabetes mellitus in pregnancy, controlled by oral hypoglycemic drugs (principal); Z3A.24 24 weeks gestation of pregnancy; Z71.3 Dietary counseling and surveillance
CPT/HCPCS: G0108

== ENCOUNTER → 2021-08-20 11:10 | Outpatient (CLI) | payer OTHER, MEDICAID, SELFPAY ==
[2021-08-20 12:07] LABS: Hematocrit 35.3 % (36-46); Hemoglobin 11.9 g/dL (12.0-16.0)
== END ==
PROVIDERS: PCP Family Medicine; Referring Provider Obstetrics & Gynecology; Visit Provider Obstetrics & Gynecology
DX: Z34.02 Encounter for supervision of normal first pregnancy, second trimester (principal); Z3A.26 26 weeks gestation of pregnancy
CPT/HCPCS: 36415; 85014; 85018

== ENCOUNTER → 2021-08-30 15:53 | Outpatient (CLI) | payer OTHER, MEDICAID, SELFPAY ==
--- NOTE | 2021-08-30 15:55 | DI.US.S_ITS ---
PROCEDURE: US OB FOLLOW UP INDICATIONS: Growth US perigestational diabetes OUTSIDE/PRIOR DATING DATA: Last menstrual period (LMP): 02/12/2021 LMP-based estimated date of delivery (ALEYDA): 11/19/2021 First dating scan (date and location): [facility] 03/25/2021 Estimated date of delivery (ALEYDA) from first dating scan: 11/20/2021 TECHNIQUE: Real-time scanning was performed of the fetus, with image documentation. COMPARISON: 07/10/2021, 03/25/2021 FINDINGS: A single living intrauterine gestation is present. Presentation: Breech Placenta: Placenta is anterior without previa. Amniotic fluid index: 11.9 heart rate: 131 beats per minute Maternal cervical canal: 4.8 centimeters. Clinically estimated gestational age: 28 weeks and 6 days based on today's biometry. Estimated gestational age from initial scan: 28 weeks and 2 days. BPD measures 7 centimeters. Head circumference measures 26.4 centimeters. Abdominal circumference measures 24.9 centimeters. Femur length measures 5.5 centimeters. Estimated weight is 1324 grams, at the 66 percentile, previously 41st percentile. IMPRESSION: Intrauterine gestation at 28 weeks and 2 days by initial ultrasound, concordant with today's biometry. Appropriate interval growth compared to 07/10/2021, with the EFW at the 66th percentile, previously 41st percentile. Normal amniotic fluid. Dictated by: Andrea Daley M.D. on 08/30/2021 at 16:30 Approved by: Andrea Daley M.D. on 08/30/2021 at 16:34
== END ==
PROVIDERS: PCP Family Medicine; Referring Provider Obstetrics & Gynecology; Visit Provider Obstetrics & Gynecology
DX: Z36.2 Encounter for other antenatal screening follow-up (principal); O24.419 Gestational diabetes mellitus in pregnancy, unspecified control; Z3A.28 28 weeks gestation of pregnancy
CPT/HCPCS: 76816

== ENCOUNTER → 2021-08-30 16:48 | Outpatient (CLI) | payer OTHER, MEDICAID, SELFPAY ==
--- NOTE | 2021-09-04 16:52 | DIAB.GDFU ---
Follow-up Gestational Diabetes Assessment Name: Anna Valderrama Date: 08/30/21 Time: 1240-125p Dx: Gestational Diabetes ALEYDA: 11/24/21 Weeks: 27-28 Anna presents for follow-up visit regarding GDM by virtual visit via [employer]. Reports she continues to have a difficult time keeping carbs within goal. Mostly with rice portion. Has stopped drinking the chocolate sweetened beverage. Did not like the chocolate protein shake discussed last visit. Interested in trying to make pro drink in a shake. Metformin up to 1000mg BID Sees OB next week Having ice cream purposefully some days. Reports feeling ?stubborn? about blood sugars. Showing some signs of diabetes burnout / fatigue. Endorses stress, family issues, impacting sleep. Also physically uncomfortable with belly as progresses and cannot sleep. Reports more crying lately due to missing her family. Denies depression. Alone often. Has friends in the area. Enjoys her cats and gardening. Reports wt 157# Physical Activity: No program Self-Monitoring Blood Glucose: States that she noticed her BG increase around 08/22. Most elevations postprandial and likely r/t excessive carb intake. Given the nature of her blood sugars it seems she may benefit from insulin. Not necessarily because this cannot be managed with lifestyle but because she is experiencing fatigue with managing her nutrition intake. Seems she is unwilling to decrease portions, resulting in chronic hyperglycemia. Date Pre Post Pre Post Pre Post Notes 08/24 94 119 137 08/25 101 121 116 08/26 90 128 123 08/27 94 190 139 124 08/28 92 124 131 08/29 90 121 153 08/30 97 194 1hr Diabetes Medications: 1000 mg BID Metformin Pertinent Labs: Improved HgA1c form prior 7% down to 6.1%. Factors in may impact results. Goal recc prepregnancy 6.5% or less Intervention: This participant was very receptive. Provided appropriate educational handouts. Discussed the following topics: Recent blood sugar results and impact of food intake Depression signs, discussing her feelings with her provider Diabetes burnout Goals: Try chocolate protein drink instead of sweetened chocolate drink- met Discuss meds with OB- met Aim for 1c carbs at meals (45-60g CHO)- continued Follow-up: TAMMI ROCHE follow-up in two weeks. HERSON ROCHE will contact provider regarding recent hyperglycemia. Judy Israel RDN, [facility] Certified Diabetes Care and Drafting Teacher T: [phone] F: [phone] [email or web address] Thank you for this referral
== END ==
PROVIDERS: PCP Family Medicine; Referring Provider Obstetrics & Gynecology; Visit Provider Obstetrics & Gynecology
DX: O24.415 Gestational diabetes mellitus in pregnancy, controlled by oral hypoglycemic drugs (principal); Z3A.27 27 weeks gestation of pregnancy; Z71.3 Dietary counseling and surveillance
CPT/HCPCS: G0108

== ENCOUNTER → 2021-09-13 13:00 | Outpatient (CLI) | payer OTHER, MEDICAID, SELFPAY ==
--- NOTE | 2021-09-23 16:06 | DIAB.FU ---
Follow-up Diabetes Education Assessment Name: Anna Valderrama Date: 09/13/21 Time: 1-2p Dx: Diabetes in ALEYDA: 11/24/21 Weeks: 30 Anna presents for follow-up visit regarding GDM by virtual visit via [employer]. Has been rx'd NPH before bed. Worries about whether to take it when HS reading is in the 90s. Also reports she is not sure what to eat. She reports feeling like she cannot decide what to eat most evenings, and she tries to take on most of the cooking since her works late nights. does cook on days off two days per week. Continues to have a very difficult time keeping carbs within rec amount. Seems stressful for her. She would rather increase her medications than reduce carb intake. May benefit from NPH BID given hyperglycemia during the day. States she still spending a lot of time alone at home, but feels it may be better since she has had friends over more recently. Family friend's child staying with them today. water intake 2.4L per day + 8-12oz milk, +4-6oz coffee Physical Activity: Gardening, trying to move more in her backyard. Self-Monitoring Blood Glucose: Improved FBG, but she continues to have elevated 2 hr pc readings r/t high carb intake. Stage of change barriers for reducing portions. May benefit from NPH BID. Date Pre Post Pre Post Pre Post HS 09/06 99 132 2h 164 09/07 98 140 2 hr 92 2hr 09/08 90 132 113 8/1 103 130 142 8/2 82 138 73 128 8/3 91 180 140 8/4 90 124 92 no insulin HS 09/13 94 131 Diabetes Medications: 1000 mg BID Metformin NPH 8u HS Pertinent Labs: Last HgA1c during , 6.1%. Factors in may impact results. Goal recc prepregnancy 6.5% or less Past Medical History: (Last Updated 05/23/21 @ 16:56 by Christina Domínguez MD) Acne (~2011) Chicken pox Childhood Cough COVID-19 virus infection Diabetes (~2020) Disc prolapse (~2015) Elevated hemoglobin A1c Frequent UTI (~2020) Irregular menstrual cycle (~2011) Low back problem Mumps Childhood Ovarian cyst (~2011) Painful menstrual periods (~2011) Polycystic ovarian syndrome Rhinosinusitis (~2010) Sinusitis Sleep apnea (~2018) UTI in Intervention: This participant was very receptive. Provided appropriate educational handouts. Discussed the following topics: Recent blood sugar results and trends Week meal plan with culturally appropriate foods. Medication management, potential for NPH BID Review of general nutrition recommendations and current intake Rule of 15 Action of NPH. Encouraged her to take her evening dose unless OB states otherwise. If she has not eaten enough at dinner and has a BG <100 she could add an HS snack. Created SMART goals for patient self-care and success. Goals: Aim for 1c carbs at meals (45-60g CHO)- not met Ask OB about NPH regimen for evening numbers- new Consider HS snack prn- new Follow-up: TAMMI ROCHE follow-up in 2-3 weeks Judy Israel RDN, [place]AELES Certified Diabetes Care and Development Consultant P: [phone] Thank you for this referral
== END ==
PROVIDERS: PCP Family Medicine; Referring Provider Obstetrics & Gynecology; Visit Provider Obstetrics & Gynecology
DX: O24.415 Gestational diabetes mellitus in pregnancy, controlled by oral hypoglycemic drugs (principal); Z3A.30 30 weeks gestation of pregnancy
CPT/HCPCS: G0108

== ENCOUNTER → 2021-09-25 12:56 | Outpatient (CLI) | payer OTHER, MEDICAID, SELFPAY ==
--- NOTE | 2021-09-25 12:57 | DI.US.S_ITS ---
PROCEDURE: US OB FOLLOW UP INDICATIONS: DM; EFW, PORTILLO OUTSIDE/PRIOR DATING DATA: Last menstrual period (LMP): This is 02/12/2021 LMP-based estimated date of delivery (ALEYDA): 11/19/2021 First dating scan (date and location): 03/25/2021 Estimated date of delivery (ALEYDA) from first dating scan: 11/20/2021 TECHNIQUE: Real-time scanning was performed of the fetus, with image documentation. Endovaginal scanning: Performed. COMPARISON: [facility], OB FOLLOW UP, 08/30/2021, 17:00. FINDINGS: A single living intrauterine gestation is present. Presentation: Vertex Placenta: Anterior without previa Amniotic fluid index: 16.1 centimeters heart rate: 147 BPM Maternal cervical canal: 3.8 centimeters Stage BPD is 8.2 centimeters, head circumference is 29.8 centimeters, abdominal circumference is 29.5 centimeters, femur length is 6.1 centimeters. Estimated gestational age based on this ultrasound of 32 weeks. Compazine gestational age today is 33 weeks. EFW is at the 78th percentile (2143 grams). IMPRESSION: EFW at the 78th percentile. Intrauterine gestation at 32 weeks by initial ultrasound. Normal PORTILLO. Vertex presentation. Dictated by: Andrea Daley M.D. on 09/25/2021 at 16:09 Approved by: Andrea Daley M.D. on 09/25/2021 at 16:11
== END ==
PROVIDERS: PCP Family Medicine; Referring Provider Obstetrics & Gynecology; Visit Provider Obstetrics & Gynecology
DX: O24.113 Pre-existing type 2 diabetes mellitus, in pregnancy, third trimester (principal); Z3A.32 32 weeks gestation of pregnancy
CPT/HCPCS: 76816

== ENCOUNTER 2021-10-02 12:27 | Outpatient (CLI) | payer OTHER, MEDICAID, SELFPAY | END 2021-10-02 13:30 | disposition home or self-care (01) | LOC: OB 10-04 07:51 | PROVIDERS: PCP Family Medicine; Referring Provider Obstetrics & Gynecology; Visit Provider Obstetrics & Gynecology | DX: O24.414 Gestational diabetes mellitus in pregnancy, insulin controlled (principal); O09.513 Supervision of elderly primigravida, third trimester; Z3A.33 33 weeks gestation of pregnancy | CPT/HCPCS: 59025; G0378; G0379 ==

== ENCOUNTER → 2021-10-04 15:29 | Outpatient (CLI) | payer OTHER, MEDICAID, SELFPAY ==
--- NOTE | 2021-10-08 11:48 | DIAB.FU ---
Addendum entered by Judy Israel 10/25/21 13:07: 20 min check-in 10/25/21: 35 weeks. breakfast mealtime insulin increased by provider due to pc breakfast hyperglycemia. Reports all other BG in goal. Today we completed recs for T2Dm. Encouraged her to get a new HgA1c 3 months . Scheduled f/u in Feb 2022. Encouraged her to call or message with any questions or follow-up needs. OB managing BG and seeing her weekly. Original Note: Follow-up Diabetes Education Assessment Name: Anna Valderrama Date: 10/04/21 Time: 330-415p Dx: Diabetes in ALEYDA: 11/24/21 Weeks: 33 Anna presents for Dm follow-up virtually via [facility]. Reports she had her baby shower since last visit. She seems in much better spirits than previous visits. Having another baby shower in October with her aunts friend. Endorses higher carb intake with recent constitution party and family in town >1c of rice or rice with bread or fruit Not feeling satisfied with meals, so eating more carbs. Again, this seems due to long period of fasting overnight and waking very hungry. We have discussed HS snacks and spreading carbs out in the morning. Stage of change precontemplative. Difficulty sleeping with baby movement and frequent urination at night. Possible induction at 39 weeks, prefers 38 weeks Eating 3-4x per day Had lemonade. Only drinking water now. Diet recall: 11a-12p: eggs, 2c+ rice or oatmeal with banana or PB toast 3-330p: veggies, meat, 1-1.5c rice 8-10p: veggies, meat, 1-1.5c rice Sn: none or fruit Bedtime: 12-1a Heartburn starts to bother her when she is really full (in the morning after breakfast). Sees OB weekly now Still taking NPH even when BG is 90 HS, as discussed last visit and confirmed by OB. Now taking Humalog BID: 6u breakfast and 4u dinner, however taking Humalog 1 hour after her meals. This results in some elevated BG and at-risk for hypoglycemia after. No hypo currently. Worries about taking metformin with ac insulin due to fear of lows. Trying to space out ac insulin and metformin Questions about whether she needs to take metformin . This seems likely given h/o T2DM. Asked that she confirm with provider. Physical Activity: No program. Stage of change barrier. Self-Monitoring Blood Glucose: SMBG: FB-94mg/dL in goal 1hr 155 H then insulin 82 mg/dL Highest 207 H 09/25 baby shower Lunch and Breakfast are 1hr Dinner 2 hr 2 values after breakfast are at 1hr without humalog and then 1hr after humalog Date Pre Post 1h Pre Post 1h Pre Post 2h 09/27 83 136 120 119 121 2hr 09/28 94 147 124 110 119 2hr 09/29 89 132 95 116 122 2hr 09/30 92 129 111 125 120 2hr 10/01 90 118 89 102 108 2hr 10/02 76 114 100 132 108 2 hr 10/03 92 115 82 113 119 2hr 10/04 81 165 139 118 Diabetes Medications: 1000 mg BID Metformin NPH 8u HS Humalog 6-8u BID Pertinent Labs: Last HgA1c during , 6.1%. Factors in may impact results. Goal recc prepregnancy 6.5% or less Past Medical History: (Last Updated 05/23/21 @ 16:56 by Christina Domínguez MD) Acne (~2011) Chicken pox Childhood Cough COVID-19 virus infection Diabetes (~2020) Disc prolapse (~2015) Elevated hemoglobin A1c Frequent UTI (~2020) Irregular menstrual cycle (~2011) Low back problem Mumps Childhood Ovarian cyst (~2011) Painful menstrual periods (~2011) Polycystic ovarian syndrome Rhinosinusitis (~2010) Sinusitis Sleep apnea (~2017) UTI in Intervention: This participant was very receptive. Provided appropriate educational handouts. Discussed the following topics: Recent blood sugar results and trends Medication management: when to take Humalog (ac meals) and taking insulin with Metformin; med action times Review of general nutrition recommendations and current intake Created SMART goals for patient self-care and success. Goals: Aim for 1c carbs at meals (45-60g CHO)- not met Ask OB about NPH regimen for evening numbers- met Consider HS snack prn- not met Goal: take insulin ac 10 min- new Rice to 1 c -cont Follow-up: RDBecky ADDISONES follow-up in 3 weeks for recs. Stage of change is a barrier for lifestyle changes, though she is very open to medication management and most of BG are in goal. Judy Israel RDN, [facility] Certified Diabetes Care and Supervisor Order Takers P: [phone] Thank you for this referral
== END ==
PROVIDERS: PCP Family Medicine; Referring Provider Obstetrics & Gynecology; Visit Provider Obstetrics & Gynecology
DX: O24.113 Pre-existing type 2 diabetes mellitus, in pregnancy, third trimester (principal); Z3A.33 33 weeks gestation of pregnancy; Z71.3 Dietary counseling and surveillance; Z79.4 Long term (current) use of insulin
CPT/HCPCS: G0108

== ENCOUNTER 2021-10-09 10:40 | Outpatient (CLI) | payer OTHER, MEDICAID, SELFPAY ==
--- NOTE | 2021-10-10 14:41 | P.TNLD_ITS ---
Visit Information Visit Information Date of evaluation: 10/10/21 Primary OB Provider: Kika Li On-call OB Provider: Kika Li Reason for Evaluation: Yes non-stress test Comments/Additional reasons for admission: 36-year-old G1 at 33 weeks 3 days, here for nonstress test due to pre-existing diabetes complicating . [facility] Medical History (Updated 08/24/21 @ 23:51 by Kika Li MD) Acne (~2011) Chicken pox Cough COVID-19 virus infection Diabetes (~2020) Disc prolapse (~2015) Elevated hemoglobin A1c Frequent UTI (~2020) Irregular menstrual cycle (~2011) Low back problem Mumps Ovarian cyst (~2011) Painful menstrual periods (~2011) Polycystic ovarian syndrome Rhinosinusitis (~2010) Sinusitis Sleep apnea (~2017) UTI in Surgical History History of wisdom tooth extraction Family History (Updated 04/26/21 @ 19:15 by Juliane Samson) Mother Hypertension Unknown Cervical cancer Sister Thalassemia Sister Iron deficiency anemia Father Diabetes mellitus Asthma Grandfather Hypertension Stroke Grandmother Diabetes mellitus Hyperlipidemia Stroke Grandmother Stroke Social History marital status: unmarried,living together number of children: 0 household members: significant other lives independently: Yes housing: house pets and animals: Yes (Cats aware of toxoplasmosis) 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: college occupational status: unemployed current occupational exposures/hazards: No abdi/taoism: Born again Congregational travel history: over 6 months ago seatbelt use: always water heater temp set < 120 deg: Yes working smoke detector in home: Yes fire extinguisher in home: Yes carbon monox detector in home: Yes firearms in home: Yes firearms unloaded and locked: Yes do you feel safe at home: Yes Smoking Status: Never smoker second hand exposure: No alcohol intake: former substance use type: does not use during the past year weight has: remained stable well-balanced diet: daily or most days daily servings fruits/ve-4 caffeine: Yes (ocassional, limit 200 mg) Type(s) of exercise: walking Evaluation Evaluation Baseline heart rate: 140 Variability: Average (6-10) monitor accelerations: Present Monitor Decelerations: Absent Category of Tracing: Reactive Status: Category l Diagnosis, Plan/Disposition Plan/Disposition Plan: Reactive nonstress test, reassuring testing Patient followed up with appointment in the office after nonstress test where review of glucose log revealed well controlled blood sugars. OB Disposition: home
== END 2021-10-09 12:02 | disposition home or self-care (01) ==
LOC: LABOR 10:44 → OB 10-10 08:14
PROVIDERS: PCP Family Medicine; Referring Provider Obstetrics & Gynecology; Visit Provider Obstetrics & Gynecology
DX: O24.113 Pre-existing type 2 diabetes mellitus, in pregnancy, third trimester (principal); Z3A.33 33 weeks gestation of pregnancy; Z79.4 Long term (current) use of insulin
CPT/HCPCS: 59025; G0378; G0379

== ENCOUNTER 2021-10-10 11:36 | Observation (INO) | payer OTHER, MEDICAID, SELFPAY ==
[2021-10-10 12:55] LABS: Appearance Urine UA SL CLOUDY; Bilirubin Urine UA NEGATIVE (NEGATIVE); Color Urine UA YELLOW; Glucose Urine UA 1+ g/dL (Negative); Ketones Urine UA NEGATIVE (NEGATIVE); Leukocyte Esterase Urine UA 3+ (NEGATIVE); Nitrite Urine UA NEGATIVE (Negative); Occult Blood Urine UA NEGATIVE (Negative); Protein Urine UA NEGATIVE (Negative); Specific Gravity Urine UA <=1.005 (1.000-1.035); Urobilinogen Urine UA 0.2 E.U./dL (0.2)
[2021-10-10 12:57] LABS: pH Urine UA 6.5 (4.5-8.0)
[2021-10-10 13:01] LABS: Amorphous Sediment Urine 1+; Bacteria Urine Moderate (10-30); Culture Indicated Urine Specimen Cultured; RBC Urine None Seen (0-5/HPF); Squamous Epithelial Cell Urine 5-10 /HPF (0-5/HPF); WBC Urine 10-30/HPF (0-5/HPF)
--- NOTE | 2021-10-10 13:29 | DI.US.S_ITS ---
PROCEDURE: US OB LIMITED INDICATIONS: contractions OUTSIDE/PRIOR DATING DATA: Last menstrual period (LMP): 02/12/2021. LMP-based estimated date of delivery (ALEYDA): 11/19/2021. First dating scan (date and location): 03/25/2021. Estimated date of delivery (ALEYDA) from first dating scan: 11/20/2021. TECHNIQUE: Real-time scanning was performed of the fetus, with image documentation. Endovaginal scanning: Performed COMPARISON: None. FINDINGS: A single living intrauterine gestation is present. Presentation: Cephalic. Placenta: Placental position is anterior, without previa. Amniotic fluid index: 14.2 cm, normal range is 5-24 cm. Single deepest vertical pocket is 5.2 cm. heart rate: 157 beats per minute. Maternal cervical canal: 3.6 cm long measured transvaginally. Normal lower limit is 2.5 cm. estimated gestational age: 33 weeks 4 days IMPRESSION: 1. Single living intrauterine in cephalic presentation. 2. Cervix is long and closed. 3. Amniotic fluid index of 14.2, within normal limits. Dictated by: Dennis Cowart M.D. on 10/10/2021 at 14:17 Approved by: Dennis Cowart M.D. on 10/10/2021 at 14:23
--- NOTE | 2021-10-10 13:35 | P.TNLD_ITS ---
Visit Information Visit Information Date of evaluation: 10/10/21 Primary OB Provider: Kika Li On-call OB Provider: Kika Li Comments/Additional reasons for admission: 36 yo G1 @33 week 4day with complicated by pre-existing diabetes complicating , insulin start during , presents due to feeling contractions. Her blood sugars well controlled. She called this with about 2 hours of feeling contractions. She reports noting abdominal tightening but felt that it was more of a constant abdominal tightening. Feeling good movement. No leakage of fluid or vaginal bleeding. [facility] Medical History (Updated 08/24/21 @ 23:51 by Kika Li MD) Acne (~2011) Chicken pox Cough COVID-19 virus infection Diabetes (~2020) Disc prolapse (~2015) Elevated hemoglobin A1c Frequent UTI (~2020) Irregular menstrual cycle (~2011) Low back problem Mumps Ovarian cyst (~2011) Painful menstrual periods (~2011) Polycystic ovarian syndrome Rhinosinusitis (~2010) Sinusitis Sleep apnea (~2017) UTI in Surgical History History of wisdom tooth extraction Family History (Updated 04/26/21 @ 19:15 by Juliane Samson) Mother Hypertension Unknown Cervical cancer Sister Thalassemia Sister Iron deficiency anemia Father Diabetes mellitus Asthma Grandfather Hypertension Stroke Grandmother Diabetes mellitus Hyperlipidemia Stroke Grandmother Stroke Social History marital status: unmarried,living together number of children: 0 household members: significant other lives independently: Yes housing: house pets and animals: Yes (Cats aware of toxoplasmosis) 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: college occupational status: unemployed current occupational exposures/hazards: No abdi/baptist: Born again [employer] travel history: over 6 months ago seatbelt use: always water heater temp set < 120 deg: Yes working smoke detector in home: Yes fire extinguisher in home: Yes carbon monox detector in home: Yes firearms in home: Yes firearms unloaded and locked: Yes do you feel safe at home: Yes Smoking Status: Never smoker second hand exposure: No alcohol intake: former substance use type: does not use during the past year weight has: remained stable well-balanced diet: daily or most days daily servings fruits/ve-4 caffeine: Yes (ocassional, limit 200 mg) Type(s) of exercise: walking Objective Labs Labs: Laboratory Results - last 24 hr 10/10/21 11:55 Urine Color Yellow Urine Appearance Sl cloudy Urine pH 6.5 Ur Specific [place] <=1.005 Urine Protein Negative Urine Glucose (UA) 1+ H Urine Ketones Negative Urine Occult Blood Negative Urine Nitrate Negative Urine Bilirubin Negative Urine Urobilinogen 0.2 Ur Leukocyte Esterase 3+ H Urine RBC None seen Urine WBC 10-30/hpf H Ur Squamous Epith Cells 5-10 /hpf H Amorphous Sediment 1+ Urine Bacteria Moderate (10-30) H Ur Culture Indicated? Specimen cultured Evaluation Evaluation Baseline heart rate: 140 Variability: Average (6-10) monitor accelerations: Present Monitor Decelerations: Absent Contraction Frequency (minutes): 12 Uterine Contraction Intensity: Mild Category of Tracing: Reactive Status: Category l Cervical dilation (cm): 0 Cervical effacement (%): 0 Comments: contractions every 12-15 minutes initially, with uterine irritability in between. Uterine irritability resolved, and contractions spaced further fibronectin negative. With collection of the FFN, area of blood on ectocervix, sensitivity noted after collecting FFN. Not there initially, appears to be from placement of the speculum. Blood stopped, did not continue. Digital cervical exam 0/long Transvaginal ultrasound by Radiology: Cervical length 3.6 cm per verbal report Urinalysis: 3+ leukocyte esterase, 1+ glucose (pt with reported higher blood sugar after breakfast this morning with higher carb meal) UA micro: 10-30 WBCs, 5-10 squamous cells, moderate bacteria Diagnosis, Plan/Disposition Plan/Disposition Plan: 33 [id number] , pre-existing diabetes complicating , insulin start during . Blood sugars well controlled. She presented with contractions which have spaced. Has been several hours she has had her symptoms. Cervix is long on digital exam and by ultrasound. FFN is negative. Urine culture sent due to bacteria on micro, but remainder UA not overly suspicious for UTI, and squamous cells, suspect contaminant thus await culture. Will discharge her to home, precautions given to return for frequent regular contractions, LOF or vaginal bleeding. OB Disposition: home
[2021-10-10 14:06] LABS: Fetal Fibronectin Negative
== END 2021-10-10 14:24 | disposition home or self-care (01) ==
PROVIDERS: Admitting Provider Obstetrics & Gynecology; PCP Family Medicine; Referring Provider Obstetrics & Gynecology; Visit Provider Obstetrics & Gynecology
DX: O24.113 Pre-existing type 2 diabetes mellitus, in pregnancy, third trimester (principal); Z3A.33 33 weeks gestation of pregnancy; Z79.4 Long term (current) use of insulin
CPT/HCPCS: 36415; 59025; 59050; 76815; 76817; 81001; 82731; 83036; 87086; 99218; G0378; G0379

== ENCOUNTER → 2021-10-10 11:37 | Outpatient (CLI) | payer OTHER, MEDICAID, SELFPAY | PROVIDERS: PCP Family Medicine; Referring Provider Obstetrics & Gynecology; Visit Provider Obstetrics & Gynecology | DX: O24.119 Pre-existing type 2 diabetes mellitus, in pregnancy, unspecified trimester (principal) | CPT/HCPCS: 36415; 83036 ==

== ENCOUNTER 2021-10-16 14:27 | Outpatient (CLI) | payer OTHER, MEDICAID, SELFPAY ==
--- NOTE | 2021-10-16 21:26 | P.TNLD_ITS ---
Visit Information Visit Information Date of evaluation: 10/16/21 Primary OB Provider: Kika Li On-call OB Provider: Kika Li Reason for Evaluation: Yes non-stress test Comments/Additional reasons for admission: for Type 2 DM complicating [facility] Medical History (Updated 08/24/21 @ 23:51 by Kika Li MD) Acne (~2011) Chicken pox Cough COVID-19 virus infection Diabetes (~2020) Disc prolapse (~2015) Elevated hemoglobin A1c Frequent UTI (~2020) Irregular menstrual cycle (~2011) Low back problem Mumps Ovarian cyst (~2011) Painful menstrual periods (~2011) Polycystic ovarian syndrome Rhinosinusitis (~2010) Sinusitis Sleep apnea (~2017) UTI in Surgical History History of wisdom tooth extraction Family History (Updated 04/26/21 @ 19:15 by Juliane Samson) Mother Hypertension Unknown Cervical cancer Sister Thalassemia Sister Iron deficiency anemia Father Diabetes mellitus Asthma Grandfather Hypertension Stroke Grandmother Diabetes mellitus Hyperlipidemia Stroke Grandmother Stroke Social History marital status: unmarried,living together number of children: 0 household members: significant other lives independently: Yes housing: house pets and animals: Yes (Cats aware of toxoplasmosis) 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: college occupational status: unemployed current occupational exposures/hazards: No abdi/nondenominational: Born again Denominational travel history: over 6 months ago seatbelt use: always water heater temp set < 120 deg: Yes working smoke detector in home: Yes fire extinguisher in home: Yes carbon monox detector in home: Yes firearms in home: Yes firearms unloaded and locked: Yes do you feel safe at home: Yes Smoking Status: Never smoker second hand exposure: No alcohol intake: former substance use type: does not use during the past year weight has: remained stable well-balanced diet: daily or most days daily servings fruits/ve-4 caffeine: Yes (ocassional, limit 200 mg) Type(s) of exercise: walking Evaluation Evaluation Baseline heart rate: 155 Variability: Moderate (11-25) monitor accelerations: Present Monitor Decelerations: Absent Contraction Frequency (minutes): 30 Uterine Contraction Intensity: Mild Category of Tracing: Reactive Status: Category l Diagnosis, Plan/Disposition Plan/Disposition Plan: 34 week EGA, Type 2 DM complicatinig , now on insulin with good control Reassuring for testing, reactive NST today. Continue weekly NST and monthly growth US. Will add weekly PORTILLO at 36 weeks. OB Disposition: home
== END 2021-10-16 15:14 | disposition home or self-care (01) ==
LOC: LABOR 14:47 → OB 10-17 09:25
PROVIDERS: PCP Family Medicine; Referring Provider Obstetrics & Gynecology; Visit Provider Obstetrics & Gynecology
DX: O24.113 Pre-existing type 2 diabetes mellitus, in pregnancy, third trimester (principal); Z3A.34 34 weeks gestation of pregnancy; Z79.4 Long term (current) use of insulin
CPT/HCPCS: 59025; G0378; G0379

== ENCOUNTER → 2021-10-23 11:28 | Outpatient (CLI) | payer OTHER, MEDICAID, SELFPAY ==
--- NOTE | 2021-10-23 11:29 | DI.US.S_ITS ---
PROCEDURE: US OB LIMITED INDICATIONS: GROWTH OUTSIDE/PRIOR DATING DATA: Last menstrual period (LMP): 02/12/2021. LMP-based estimated date of delivery (ALEYDA): 11/19/2021. First dating scan (date and location): 03/25/2021. Estimated date of delivery (ALEYDA) from first dating scan: 11/20/2021. TECHNIQUE: Real-time scanning was performed of the fetus, with image documentation and biometric measurements. Endovaginal scanning: Not performed COMPARISON: [facility], OB LIMITED, 10/10/2021, 13:53. FINDINGS: General: A single living intrauterine gestation is present. Presentation: Vertex. Placenta: Placental position is anterior , without previa. Amniotic fluid index: 9.1 cm, normal range is 5-24 cm. Single deepest vertical pocket is 4.3 cm. heart rate: 130 beats per minute. Maternal cervical canal: Not well visualized. biometrics: Biparietal diameter: 8.8 centimeters, 35 weeks 5 days Head circumference: 32.8 centimeters, 37 weeks 2 days Abdominal circumference: 33.4 centimeters, 37 weeks 2 days Femur length: 7.2 centimeters, 36 weeks 5 days Composite gestational age from present scan: 36 weeks 5 days Estimated weight and percentile: 3077 grams, 77th percentile Other: Not applicable. IMPRESSION: 1. Single living intrauterine in vertex presentation. 2. Normal interval growth. We strive to produce accurate, complete, and clear reports of imaging services. To assist us in improving patient care, this report was composed using standard report templates and voice recognition software. Therefore, it may contain abnormal punctuation, insertions and/or omissions. Occasional wrong-word or sound-alike substitutions may occur. Though we review the report and make efforts to correct it, we do recommend that the report be read carefully in proper context to recognize any text inaccuracies. Dictated by: Dennis Cowart M.D. on 10/23/2021 at 18:44 Approved by: Dennis Cowart M.D. on 10/23/2021 at 18:49
== END ==
PROVIDERS: PCP Family Medicine; Referring Provider Obstetrics & Gynecology; Visit Provider Obstetrics & Gynecology
DX: O24.119 Pre-existing type 2 diabetes mellitus, in pregnancy, unspecified trimester (principal)
CPT/HCPCS: 76815

== ENCOUNTER 2021-10-23 12:22 | Outpatient (CLI) | payer OTHER, MEDICAID, SELFPAY ==
--- NOTE | 2021-11-01 23:40 | P.TNLD_ITS ---
Visit Information Visit Information Date of evaluation: 10/23/21 Primary OB Provider: Kika Li On-call OB Provider: Kika Li Reason for Evaluation: Yes non-stress test Comments/Additional reasons for admission: NST for Type 2 DM complicating . Vital Signs Vital Signs: BP 121/73 [facility] Medical History Acne (~2011) Chicken pox Cough COVID-19 virus infection Diabetes (~2020) Disc prolapse (~2015) Elevated hemoglobin A1c Frequent UTI (~2020) Irregular menstrual cycle (~2011) Low back problem Mumps Ovarian cyst (~2011) Painful menstrual periods (~2011) Polycystic ovarian syndrome Rhinosinusitis (~2010) Sinusitis Sleep apnea (~2017) UTI in Surgical History History of wisdom tooth extraction Family History Mother Hypertension Unknown Cervical cancer Sister Thalassemia Sister Iron deficiency anemia Father Diabetes mellitus Asthma Grandfather Hypertension Stroke Grandmother Diabetes mellitus Hyperlipidemia Stroke Grandmother Stroke Social History marital status: unmarried,living together number of children: 0 household members: significant other lives independently: Yes housing: house pets and animals: Yes (Cats aware of toxoplasmosis) 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: college occupational status: unemployed current occupational exposures/hazards: No abdi/sabianism: Born again [employer] travel history: over 6 months ago seatbelt use: always water heater temp set < 120 deg: Yes working smoke detector in home: Yes fire extinguisher in home: Yes carbon monox detector in home: Yes firearms in home: Yes firearms unloaded and locked: Yes do you feel safe at home: Yes Smoking Status: Never smoker second hand exposure: No alcohol intake: former substance use type: does not use during the past year weight has: remained stable well-balanced diet: daily or most days daily servings fruits/ve-4 caffeine: Yes (ocassional, limit 200 mg) Type(s) of exercise: walking Evaluation Evaluation Baseline heart rate: 145 Variability: Average (6-10) monitor accelerations: Present Monitor Decelerations: Absent Category of Tracing: Reactive Status: Category l Diagnosis, Plan/Disposition Plan/Disposition Plan: Reactive NST. Reassuring NST. OB Disposition: home
== END 2021-10-23 13:15 | disposition home or self-care (01) ==
LOC: LABOR 13:08 → OB 10-25 08:27
PROVIDERS: PCP Family Medicine; Referring Provider Obstetrics & Gynecology; Visit Provider Obstetrics & Gynecology
DX: O24.113 Pre-existing type 2 diabetes mellitus, in pregnancy, third trimester (principal); O09.513 Supervision of elderly primigravida, third trimester; O26.899 Other specified pregnancy related conditions, unspecified trimester; N89.8 Other specified noninflammatory disorders of vagina; Z3A.35 35 weeks gestation of pregnancy; Z3A.36 36 weeks gestation of pregnancy; Z79.4 Long term (current) use of insulin
CPT/HCPCS: 59025; 76815; 87480; 87510; 87653; 87660; G0378; G0379

== ENCOUNTER → 2021-10-23 14:21 | Outpatient (CLI) | payer OTHER, MEDICAID, SELFPAY ==
[2021-10-24 12:06] LABS: Strep Grp B PCR NEG for Grp B Strep
[2021-10-25 17:17] LABS: Candida species Negative (Negative); Gardnerella vaginalis Positive (Negative); Trichomoas vaginalis Negative (Negative)
== END ==
PROVIDERS: PCP Family Medicine; Visit Provider Obstetrics & Gynecology
DX: N89.8 Other specified noninflammatory disorders of vagina (principal); O26.899 Other specified pregnancy related conditions, unspecified trimester; Z3A.35 35 weeks gestation of pregnancy
CPT/HCPCS: 87480; 87510; 87653; 87660

== ENCOUNTER 2021-10-30 10:32 | Observation (INO) | payer OTHER, MEDICAID, SELFPAY ==
[2021-10-30] MEDS: ACETAMINOPHEN 325 MG TABLET 650 MG PO (12:00)
[2021-10-30 12:02] LABS: Add Manual Diff / Slide Review NO; Basophils Absolute Auto 0 /uL (0-100); Basophils Percent Auto 0.5 % (0-2); Eosinophils Absolute Auto 200 /uL (0-450); Eosinophils Percent Auto 2.7 % (2-4); Hematocrit 32.6 % (36-46); Lymphocytes Absolute Auto 1400 /uL (1100-4500); Lymphocytes Percent Auto 20.3 % (25-40); Mean Corpuscular HGB Conc 33.7 % (30-36); Mean Corpuscular Hemoglobin 27.3 PG (26-34); Mean Corpuscular Volume 81.1 fL (80-100); Monocytes Absolute Auto 800 /uL (0-900); Monocytes Percent Auto 11.3 % (3-14); Neutrophils Absolute Auto 4600 /uL (1500-7000); Neutrophils Percent Auto 65.2 % (50-75); Platelet Count 173 X10^3/uL (150-400); Red Blood Cell Count 4.03 X10^6/uL (4.0-5.2); Red Cell Distribution Width 14.3 % (11.6-14.8)
[2021-10-30 12:14] LABS: Alanine Aminotransferase 16 IU/L (<35); Albumin 3.4 g/dL (3.5-5.0); Alkaline Phosphatase 153 U/L (38-126); Aspartate Aminotransferase 22 IU/L (14-36); Bilirubin Total 0.2 mg/dL (0.2-1.3); Bilirubin Unconjugated 0.3 mg/dL (0.0-1.1); Blood Urea Nitrogen 7 mg/dL (7-17); Calcium 9.1 mg/dL (8.4-10.2); Carbon Dioxide 18 mmol/L (22-32); Chloride 107 mmol/L (98-107); Estimated Glomerular Filt Rate > 60 mL/min (>60); Globulin 3.5 g/dL (1.7-4.1); Glucose 98 mg/dL (70-100); HEMOLYSIS < 15 (0-50); Sodium 134 mmol/L (137-145); Total Protein 6.9 g/dL (6.3-8.2)
--- NOTE | 2021-11-01 23:42 | PM.OBTRLD ---
Visit Information Visit Information Date of evaluation: 10/30/21 Primary OB Provider: Kika Li On-call OB Provider: Kika Li Reason for Evaluation: Yes non-stress test and Yes other Comments/Additional reasons for admission: 36-year-old G1 female presents for scheduled nonstress test at 36 weeks, after her office visit today. She was teary with reported right upper quadrant discomfort during the NST. No regular contractions noted. She is not correlated discomfort with any meals. On exam she was nontender in the office. No associated nausea with discomfort but has occasional nausea with heartburn, nothing persistent. No headache or vision changes. Vital Signs Vital Signs: Temperature 36.6? C BP 120/87 [facility] Medical History Acne (~2011) Chicken pox Cough COVID-19 virus infection Diabetes (~2020) Disc prolapse (~2015) Elevated hemoglobin A1c Frequent UTI (~2020) Irregular menstrual cycle (~2011) Low back problem Mumps Ovarian cyst (~2011) Painful menstrual periods (~2011) Polycystic ovarian syndrome Rhinosinusitis (~2010) Sinusitis Sleep apnea (~2017) UTI in Surgical History History of wisdom tooth extraction Family History Mother Hypertension Unknown Cervical cancer Sister Thalassemia Sister Iron deficiency anemia Father Diabetes mellitus Asthma Grandfather Hypertension Stroke Grandmother Diabetes mellitus Hyperlipidemia Stroke Grandmother Stroke Social History marital status: unmarried,living together number of children: 0 household members: significant other lives independently: Yes housing: house pets and animals: Yes (Cats aware of toxoplasmosis) 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: college occupational status: unemployed current occupational exposures/hazards: No abdi/temple: Born again [employer] travel history: over 6 months ago seatbelt use: always water heater temp set < 120 deg: Yes working smoke detector in home: Yes fire extinguisher in home: Yes carbon monox detector in home: Yes firearms in home: Yes firearms unloaded and locked: Yes do you feel safe at home: Yes Smoking Status: Never smoker second hand exposure: No alcohol intake: former substance use type: does not use during the past year weight has: remained stable well-balanced diet: daily or most days daily servings fruits/ve-4 caffeine: Yes (ocassional, limit 200 mg) Type(s) of exercise: walking Exam Narrative Exam Narrative: General: no acute distress. Appears consistent with some mild discomfort with movement. Abdomen soft, nontender, nondistended. No right upper quadrant abdominal tenderness. Reported mild tenderness over right lateral ribs, no severe tenderness Objective Labs Result Diagrams: 10/30/21 11:50 10/30/21 11:50 Evaluation Evaluation Baseline heart rate: 140 Variability: Moderate (11-25) monitor accelerations: Present Monitor Decelerations: Absent Contraction Frequency (minutes): 15 Uterine Contraction Intensity: Mild Category of Tracing: Reactive Status: Category l Comments: contractions irregular, at most every 15 minute Diagnosis, Plan/Disposition Plan/Disposition Plan: 36-year-old G1 at 36 weeks. Type 2 diabetes, now on insulin with . Nonstress test reactive, reassuring testing. Right upper quadrant discomfort appears musculoskeletal. Discussed normal LFTs . No signs of preeclampsia. Discussed she should check-in if she develops persistent severe discomfort, but recommend Tylenol as needed and resting in positions that she finds more comfortable. keep appointment in 1 week, call earlier as needed. OB Disposition: home
== END 2021-10-30 15:30 | disposition home or self-care (01) ==
PROVIDERS: Admitting Provider Obstetrics & Gynecology; PCP Family Medicine; Referring Provider Obstetrics & Gynecology; Visit Provider Obstetrics & Gynecology
DX: O24.113 Pre-existing type 2 diabetes mellitus, in pregnancy, third trimester (principal); O47.1 False labor at or after 37 completed weeks of gestation; O09.513 Supervision of elderly primigravida, third trimester; Z3A.37 37 weeks gestation of pregnancy
CPT/HCPCS: 59025; 59050; 80053; 80076; 85025; G0378; G0379

== ENCOUNTER 2021-11-06 15:40 | Outpatient (CLI) | payer OTHER, MEDICAID, SELFPAY | END 2021-11-06 16:30 | disposition home or self-care (01) | LOC: OB 11-11 11:45 | PROVIDERS: PCP Family Medicine; Referring Provider Obstetrics & Gynecology; Visit Provider Obstetrics & Gynecology | DX: O47.1 False labor at or after 37 completed weeks of gestation (principal); O09.513 Supervision of elderly primigravida, third trimester; O24.813 Other pre-existing diabetes mellitus in pregnancy, third trimester; Z79.4 Long term (current) use of insulin; Z3A.38 38 weeks gestation of pregnancy; Z34.00 Encounter for supervision of normal first pregnancy, unspecified trimester; Z3A.37 37 weeks gestation of pregnancy | CPT/HCPCS: 59025; 87086; G0378; G0379 ==

== ENCOUNTER → 2021-11-06 16:33 | Outpatient (CLI) | payer OTHER, MEDICAID, SELFPAY | PROVIDERS: PCP Family Medicine; Visit Provider Obstetrics & Gynecology | DX: Z34.00 Encounter for supervision of normal first pregnancy, unspecified trimester (principal); Z3A.37 37 weeks gestation of pregnancy | CPT/HCPCS: 87086 ==

== ENCOUNTER → 2021-11-14 10:51 | Outpatient (CLI) | payer OTHER, MEDICAID, SELFPAY ==
--- NOTE | 2021-11-14 10:51 | DI.US.S_ITS ---
PROCEDURE: US OB LIMITED INDICATIONS: Growth OUTSIDE/PRIOR DATING DATA: Last menstrual period (LMP): 02/12/2021. LMP-based estimated date of delivery (ALEYDA): 11/19/2021. First dating scan (date and location): 03/25/2021. Estimated date of delivery (ALEYDA) from first dating scan: 11/20/2021. The calculations are made using the ultrasound ALEYDA of 11/20/2021. TECHNIQUE: Real-time scanning was performed of the fetus, with image documentation. COMPARISON: [facility], , US OB LIMITED, 10/23/2021, 11:36. [facility], , US OB >= 14 WEEKS FETUS, 11/06/2021, 15:26. FINDINGS: A single living intrauterine gestation is present. Presentation: Vertex. Placenta: Placental position is anterior, without previa. Lower placental edge 0.5 to 3 cm from internal cervical os qualifies as low lying placenta. Marginal previa is defined as lower edge 0 to 0.5 mm from internal os. Amniotic fluid index: 9.5 cm, normal range is 5-24 cm. Single deepest vertical pocket is 4.3 cm. heart rate: 140 beats per minute. Maternal cervical canal: Not visualized Estimated gestational age from today's scan: 38 weeks 3 days Estimated gestational age from initial scan: 39 weeks 1 day BPD: 9.2 cm 37 weeks 2 days HC: 33.7 cm 38 weeks 4 days AC 39.3 cm, greater than 40 weeks FL: 7.7 cm 39 weeks 4 days Estimated weight: 4299 g, 97th percentile. IMPRESSION: Single live intrauterine with ultrasound gestational age today of 38 weeks 3 days. Estimated weight is at the 97th percentile. PORTILLO is within normal limits. Dictated by: Yahaira Hu M.D. on 11/14/2021 at 12:42 Approved by: Yahaira Hu M.D. on 11/14/2021 at 12:45
== END ==
PROVIDERS: PCP Family Medicine; Referring Provider Obstetrics & Gynecology; Visit Provider Obstetrics & Gynecology
DX: Z3A.38 38 weeks gestation of pregnancy; O24.113 Pre-existing type 2 diabetes mellitus, in pregnancy, third trimester
CPT/HCPCS: 76815

== ENCOUNTER 2021-11-14 11:22 | Outpatient (CLI) | payer OTHER, MEDICAID, SELFPAY ==
[2021-11-14 12:57] LABS: Add Manual Diff / Slide Review NO; Basophils Absolute Auto 0 /uL (0-100); Basophils Percent Auto 0.6 % (0-2); Eosinophils Absolute Auto 100 /uL (0-450); Eosinophils Percent Auto 2.3 % (2-4); Hematocrit 36.8 % (36-46); Hemoglobin 11.8 g/dL (12.0-16.0); Lymphocytes Absolute Auto 1200 /uL (1100-4500); Lymphocytes Percent Auto 22.1 % (25-40); Mean Corpuscular HGB Conc 32.1 % (30-36); Mean Corpuscular Hemoglobin 26.9 PG (26-34); Mean Corpuscular Volume 83.6 fL (80-100); Monocytes Absolute Auto 700 /uL (0-900); Monocytes Percent Auto 13.3 % (3-14); Neutrophils Absolute Auto 3500 /uL (1500-7000); Neutrophils Percent Auto 61.7 % (50-75); Platelet Count 163 X10^3/uL (150-400); Red Cell Distribution Width 15.4 % (11.6-14.8); White Blood Cell Count 5.6 X10^3/uL (4.5-11.0)
[2021-11-14 13:08] LABS: Alanine Aminotransferase 13 IU/L (<35); Albumin 3.4 g/dL (3.5-5.0); Alkaline Phosphatase 187 U/L (38-126); Aspartate Aminotransferase 25 IU/L (14-36); Bilirubin Total 0.2 mg/dL (0.2-1.3); Blood Urea Nitrogen 8 mg/dL (7-17); Carbon Dioxide 20 mmol/L (22-32); Chloride 108 mmol/L (98-107); Estimated Glomerular Filt Rate > 60 mL/min (>60); Globulin 3.5 g/dL (1.7-4.1); Glucose 78 mg/dL (70-100); HEMOLYSIS < 15 (0-50); Potassium 4.2 mmol/L (3.4-5.1); Sodium 137 mmol/L (137-145); Total Protein 6.9 g/dL (6.3-8.2)
[2021-11-14 13:18] LABS: Creatinine Urine Random 25.1 mg/dL; Protein (Total) Urine Random 18 mg/dL (0-12); Protein Creatinine Ratio Urine 0.71 GRAM/24H
== END 2021-11-14 12:40 | disposition home or self-care (01) ==
LOC: LABOR 12:30 → OB 11-19 14:17
PROVIDERS: PCP Family Medicine; Referring Provider Obstetrics & Gynecology; Visit Provider Obstetrics & Gynecology
DX: O24.113 Pre-existing type 2 diabetes mellitus, in pregnancy, third trimester (principal); O09.513 Supervision of elderly primigravida, third trimester; O47.1 False labor at or after 37 completed weeks of gestation; Z3A.39 39 weeks gestation of pregnancy
CPT/HCPCS: 59025; 76815; 80053; 82570; 84156; 85025; G0378; G0379

== ENCOUNTER 2021-11-16 08:05 | Inpatient (IN) | payer OTHER, MEDICAID, SELFPAY ==
[2021-11-16 08:53] LABS: Hematocrit 35.3 % (36-46); Hemoglobin 11.5 g/dL (12.0-16.0); Mean Corpuscular HGB Conc 32.5 % (30-36); Mean Corpuscular Hemoglobin 26.5 PG (26-34); Mean Corpuscular Volume 81.5 fL (80-100); Platelet Count 146 X10^3/uL (150-400); Red Blood Cell Count 4.33 X10^6/uL (4.0-5.2); White Blood Cell Count 6.8 X10^3/uL (4.5-11.0)
[2021-11-16 09:06] LABS: Alanine Aminotransferase 14 IU/L (<35); Albumin 3.4 g/dL (3.5-5.0); Alkaline Phosphatase 194 U/L (38-126); Aspartate Aminotransferase 23 IU/L (14-36); BUN Creatinine Ratio 15.3 (6-22); Bilirubin Total 0.3 mg/dL (0.2-1.3); Blood Urea Nitrogen 9 mg/dL (7-17); Carbon Dioxide 19 mmol/L (22-32); Chloride 107 mmol/L (98-107); Estimated Glomerular Filt Rate > 60 mL/min (>60); Globulin 3.4 g/dL (1.7-4.1); Glucose 69 mg/dL (70-100); HEMOLYSIS < 15 (0-50); Potassium 4.1 mmol/L (3.4-5.1); Sodium 136 mmol/L (137-145); Total Protein 6.8 g/dL (6.3-8.2)
[2021-11-16 10:35] VITALS: BP 130/90
--- NOTE | 2021-11-16 10:38 | PM.OBHP.1 ---
OB HPI Date/Time Date of admission: 11/16/21 Date Patient Seen: 11/16/21 Time Patient Seen: 09:45 History of Present Condition Chief complaint: NST : 1 Estimated Date of Delivery: 11/24/21 Estimated Gestational Age (weeks): 38 Narrative: Anna Valderrama is a 36 year old female @ 38wk6d being admitted for delivery for preeclampsia. She was diagnosed with diabetes outside of , was on oral medication. During on metformin and insulin added mid . Her glucose log during showed glucose control, and her A1c decreased from 7.0 to 6.0. Ultrasound this week however showed EFW increased from 77% to 97% with EFW 4300gm. Patient was having routine testing with weekly NSTs, growth ultrasounds and intermittent PORTILLO. On NST 2 days ago, she had SBP 130/88 then 130/80s. She had been checking her blood pressures at home and had had an isolated 140/90 with repeat 130/80s. Asked her to continue to log her blood pressures. Preeclamptic labs were normal, but her spot protein/creat ratio result returned later as 0.71, elevated. Called to inform her yesterday and check on her blood pressures. Patient reported repeat DBP low 90s. Her BP cuff had correlated previously with our values here. Scheduled her for NST and BP check today with plan to likely proceed with delivery for apparent preeclampsia. She presented for NST, repeat labs and BP check. Initial BP here 130/90, then decreased to normal. On review of her BP log she has had 110-140/80-90s overnight with BP as high as 140/97, 136/96. She reports occasional flashes of lights before her eyes, was only occurring after a shower but random occasional yesterday. Denies headache, nausea or abdominal pain. She notes a little increased edema in her fingers, no significant pedal edema. She is having some increased heartburn symptoms after having a spicy meal last night. Feeling good movement. No leakage of fluid or vaginal bleeding. She is feeling occasional contractions. Planned mode of delivery change to section 2 days ago. She was scheduled for induction of labor in 2 days, but follow-up ultrasound for growth showed EFW 97%, 4299 g. 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 After receiving report, I did review results with her and agree. EFW 4299 g, elevated AC/AC ratio. I discussed with the patient and her , though EFW is not greater than 4500 g, patient is petite so baby is fairly large for her, and in setting of the macrosomia with diabetes, there is the increased risk for shoulder dystocia. Discussed option for scheduled , discussing I feel as well this would be a better idea, verses option for trial of labor and see if labor progressed normally. She desired proceeding with section for mode of delivery. Indications Indication for induction OB: gestational HTN/pre-eclampsia Operative indications ( section): elective (macrosomia with maternal diabetes) History of Present care: good care Dating criteria: LMP confirmed by 1st trimester US Ultrasounds: normal 1st trimester US and normal mid trimester US Obstetrical complications: other (NIDDM complicationg . On insulin for ) [facility] Medical History Acne (~2011) Chicken pox Cough COVID-19 virus infection Diabetes (~2020) Disc prolapse (~2015) Elevated hemoglobin A1c Frequent UTI (~2020) Irregular menstrual cycle (~2011) Low back problem Mumps Ovarian cyst (~2011) Painful menstrual periods (~2011) Polycystic ovarian syndrome Rhinosinusitis (~2010) Sinusitis Sleep apnea (~2017) UTI in Surgical History History of wisdom tooth extraction Family History Mother Hypertension Unknown Cervical cancer Sister Thalassemia Sister Iron deficiency anemia Father Diabetes mellitus Asthma Grandfather Hypertension Stroke Grandmother Diabetes mellitus Hyperlipidemia Stroke Grandmother Stroke Social History marital status: unmarried,living together number of children: 0 household members: significant other lives independently: Yes housing: house pets and animals: Yes (Cats aware of toxoplasmosis) 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: college occupational status: unemployed current occupational exposures/hazards: No abdi/methodist: Born again [employer] travel history: over 6 months ago seatbelt use: always water heater temp set < 120 deg: Yes working smoke detector in home: Yes fire extinguisher in home: Yes carbon monox detector in home: Yes firearms in home: Yes firearms unloaded and locked: Yes do you feel safe at home: Yes Smoking Status: Never smoker second hand exposure: No alcohol intake: former substance use type: does not use during the past year weight has: remained stable well-balanced diet: daily or most days daily servings fruits/ve-4 caffeine: Yes (ocassional, limit 200 mg) Type(s) of exercise: walking Meds Home Medications and Allergies Home Medications Medication Instructions Recorded Confirmed Type blood-glucose meter (Blood Glucose #1 ea 05/14/21 11/16/21 Rx Monitoring kit) blood sugar diagnostic (Blood #100 ea 05/23/21 11/16/21 Rx Glucose Test strips) lancets #120 ea 05/23/21 11/16/21 Rx prenat.vits,tal,pzp-[id number]-[id number] 1 tab PO DAILY #60 tabs 06/11/21 11/16/21 Rx metformin 1,000 mg tablet 1,000 mg PO BID diabetes #60 tabs 08/06/21 11/16/21 Rx insulin NPH isoph U-100 human 100 8 unit (0.08 mL) SUBCUT QPM #15 mL 09/05/21 11/16/21 Rx unit/mL (3 mL) subcutaneous pen (Humulin N NPH U-100 Insulin KwikPen) pen needle, diabetic 31 gauge x #100 ea 09/05/21 11/16/21 Rx 1/4 (Lite Touch Insulin Pen [place]) insulin lispro 100 unit/mL 3 unit (0.03 mL) SUBCUT QACBREAK 09/13/21 11/16/21 Rx subcutaneous cartridge #15 mL insulin syringe-needle U-100 0.3 #100 ea 09/25/21 11/16/21 Rx mL 29 gauge x 1/2 (BD Insulin Syringe) Allergies Allergy/AdvReac Type Severity Reaction Status Date / Time No Known Drug Allergies Allergy Verified 11/16/21 10:37 Objective Labs Result Diagrams: 11/16/21 08:36 11/16/21 08:36 Labs: Laboratory Results - last 24 hr 11/16/21 11/16/21 11/16/21 08:36 08:36 08:36 WBC 6.8 RBC 4.33 Hgb 11.5 L Hct 35.3 L MCV 81.5 MCH 26.5 MCHC 32.5 RDW 15.0 H Plt Count 146 L Sodium 136 L Potassium 4.1 Chloride 107 Carbon Dioxide 19 L BUN 9 Creatinine 0.59 Estimated GFR > 60 BUN/Creatinine Ratio 15.3 Glucose 69 L Calcium 9.0 Total Bilirubin 0.3 AST 23 ALT 14 Alkaline Phosphatase 194 H Total Protein 6.8 Albumin 3.4 L Globulin 3.4 Albumin/Globulin Ratio 1.0 Blood Type O Positive Antibody Screen Negative
[2021-11-16] MEDS: DEXTROSE 5%-LACTATED RINGERS 1,000 ML 100 ML IV ×2 (11:14→16:44)
[2021-11-16] MEDS: CITRIC ACID/SODIUM CITRATE 15 ML SOLUTION 30 ML PO ×2 (11:38→18:50)
--- NOTE | 2021-11-16 11:44 | P.HPOB_ITS ---
OB HPI Date/Time Date of admission: 11/16/21 Date Patient Seen: 11/16/21 Time Patient Seen: 09:45 History of Present Condition Chief complaint: NST ALEYDA Calculator Estimated Delivery Date Method Current WG Current Estimate 11/24/21 Ultrasound #1 38w 6d Other Estimates 11/19/21 LMP (Certain) 39w 4d 11/25/21 Ultrasound #2 38w 5d Estimated Gestational Age (weeks): 38 : 1 Narrative: Anna Valderrama is a 36 year old female @ 38wk6d being admitted for delivery for preeclampsia. She was diagnosed with diabetes prior to , was not on any medication yet but monitoring blood glucose. During she was started on metformin and insulin added at 28 weeks. Her glucose log during showed overall glucose control, with only mild excursions in the late 3rd trimester, and her A1c decreased from 7.0 to 6.0. Ultrasound this week however showed EFW increased from 77% to 97% with EFW 4300gm. Patient was having routine testing with weekly NSTs, growth ultrasounds and intermittent PORTILLO. On NST 2 days ago, she had SBP 130/88 then 130/80s. She had been checking her blood pressures at home and had had an isolated 140/90 the day prior with repeat 130/80s. Asked her to continue to log her blood pressures. Preeclamptic labs were normal, but her spot protein/creat ratio result returned later as 0.71, elevated. Pt called yesterday late afternoon with her blood pressures. Patient reported repeat DBP low 90s. Her BP cuff had correlated previously with our values here. She had already eaten. Scheduled her for NST and BP check today with plan to likely proceed with delivery if she continued with elevated BP's overnight or here, proceeding with delivery for apparent preeclampsia. She presents here for NST, repeat labs and BP check. Initial BP here 130/90, t hen decreased to normal. On review of her BP log she has had 110-140/80-90s overnightand this am with BP as high as 140/97, 136/96. She reports occasional flashes of lights before her eyes, was only occurring after a shower but random occasional yesterday. Denies headache, nausea or abdominal pain. She notes a little increased edema in her fingers, no significant pedal edema. She is having some increased heartburn symptoms after having a spicy meal last night. Feeling good movement. No leakage of fluid or vaginal bleeding. She is feeling occasional contractions. Planned mode of delivery change to section 2 days ago. She was scheduled for induction of labor in 2 days, but follow-up ultrasound for growth showed EFW 97%, 4299 g. 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 After receiving report, I did review results with her and agree. EFW 4299 g, elevated AC/AC ratio. I discussed with the patient and her , though EFW is not greater than 4500 g, patient is petite so baby is fairly large for her, and in setting of the macrosomia with diabetes, there is the increased risk for shoulder dystocia. Discussed option for scheduled , discussing I feel as well this would be a better idea, verses option for trial of labor and see if labor progressed normally. She desired proceeding with section for mode of delivery. Current insulin regimen: lispro 10 units with breakfast, 10 units with dinner. NPH 8 units before bedtime. On metformin 1000 mg b.i.d. care: good care Dating criteria OB: LMP confirmed by 1st trimester US Ultrasounds: normal 1st trimester US and normal mid trimester US Obstetrical complications: none Medical complications OB: other (NIDDM complicating , on insulin for ) Indications Indication for induction OB: gestational HTN/pre-eclampsia Operative indications ( section): cephalopelvic disproportion ( Macrosomia, elevated abdominal circumference in setting of maternal diabetes) Preadmission Labs Last OB Lab Results: Blood Type O Positive 11/16/21 08:36 Antibody Screen Negative 11/16/21 08:36 Hematocrit 35.3 % (36-46) L 11/16/21 08:36 Hemoglobin 11.5 g/dL (12.0-16.0) L 11/16/21 08:36 Hepatitis B Surface Antigen Negative s/c (NEGATIVE) 06/07/21 12 :04 Hepatitis C Antibody Negative s/c (NEGATIVE) 06/07/21 12:04 Rubella Antibody 221.0 IU/mL (>15) 06/07/21 12:04 Varicella-Zoster IgG Antibody 571 index (Immune >165) 06/07/21 12:04 Group B Streptococcus (PCR) Neg for grp b strep 10/23/21 14:21 -: Chlamydia screen: negative and Gonorrhea screen: negative -: PAP smear: Normal Genetic Screens: Cell-free DNA: Normal and Alpha-fetoprotein: Normal Evaluation Evaluation Baseline heart rate: 130 Variability: Moderate (11-25) monitor accelerations: Present Monitor Decelerations: Absent Comments: rare contraction [facility] Medical History (Updated 11/16/21 @ 11:56 by Kika Li MD) Acne (~2011) Chicken pox Cough COVID-19 virus infection Diabetes (~2020) Disc prolapse (~2015) Elevated hemoglobin A1c Frequent UTI (~2020) Irregular menstrual cycle (~2011) Low back problem Mumps Ovarian cyst (~2011) Painful menstrual periods (~2011) Polycystic ovarian syndrome Rhinosinusitis (~2010) Sinusitis Sleep apnea (~2017) UTI in Surgical History History of wisdom tooth extraction Family History Mother Hypertension Unknown Cervical cancer Sister Thalassemia Sister Iron deficiency anemia Father Diabetes mellitus Asthma Grandfather Hypertension Stroke Grandmother Diabetes mellitus Hyperlipidemia Stroke Grandmother Stroke Social History marital status: unmarried,living together number of children: 0 household members: significant other lives independently: Yes housing: house pets and animals: Yes (Cats aware of toxoplasmosis) 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: college occupational status: unemployed current occupational exposures/hazards: No abdi/jehovah's witness: Born again [employer] travel history: over 6 months ago seatbelt use: always water heater temp set < 120 deg: Yes working smoke detector in home: Yes fire extinguisher in home: Yes carbon monox detector in home: Yes firearms in home: Yes firearms unloaded and locked: Yes do you feel safe at home: Yes Smoking Status: Never smoker second hand exposure: No alcohol intake: former substance use type: does not use during the past year weight has: remained stable well-balanced diet: daily or most days daily servings fruits/ve-4 caffeine: Yes (ocassional, limit 200 mg) Type(s) of exercise: walking Meds Home Medications and Allergies Home Medications Medication Instructions Recorded Confirmed Type blood-glucose meter (Blood Glucose #1 ea 05/14/21 11/16/21 Rx Monitoring kit) blood sugar diagnostic (Blood #100 ea 05/23/21 11/16/21 Rx Glucose Test strips) lancets #120 ea 05/23/21 11/16/21 Rx prenat.vits,tal,[id number] 1 tab PO DAILY #60 tabs 06/11/21 11/16/21 Rx metformin 1,000 mg tablet 1,000 mg PO BID diabetes #60 tabs 08/06/21 11/16/21 Rx insulin NPH isoph U-100 human 100 8 unit (0.08 mL) SUBCUT QPM #15 mL 09/05/21 11/16/21 Rx unit/mL (3 mL) subcutaneous pen (Humulin N NPH U-100 Insulin KwikPen) pen needle, diabetic 31 gauge x #100 ea 09/05/21 11/16/21 Rx 1/4 (Lite Touch Insulin Pen [place]) insulin lispro 100 unit/mL 3 unit (0.03 mL) SUBCUT QACBREAK 09/13/21 11/16/21 Rx subcutaneous cartridge #15 mL insulin syringe-needle U-100 0.3 #100 ea 09/25/21 11/16/21 Rx mL 29 gauge x 1/2 (BD Insulin Syringe) Allergies Allergy/AdvReac Type Severity Reaction Status Date / Time No Known Drug Allergies Allergy Verified 11/16/21 10:37 Review of Systems Review of Systems Narrative: As per HPI In addition: No chest pain, no shortness of breath. No fever OB Exam Narrative Exam Narrative: General: Well-appearing female in no acute distress Heart: Regular rate rhythm, mild systolic ejection murmur Lungs: Clear to auscultation bilaterally Extremities: Negative for pedal edema. Trace finger edema DTR: 2+ patellar reflex, no clonus Objective Labs Result Diagrams: 11/16/21 08:36 11/16/21 08:36 Labs: Laboratory Results - last 24 hr 11/16/21 11/16/21 11/16/21 08:36 08:36 08:36 WBC 6.8 RBC 4.33 Hgb 11.5 L Hct 35.3 L MCV 81.5 MCH 26.5 MCHC 32.5 RDW 15.0 H Plt Count 146 L Sodium 136 L Potassium 4.1 Chloride 107 Carbon Dioxide 19 L BUN 9 Creatinine 0.59 Estimated GFR > 60 BUN/Creatinine Ratio 15.3 Glucose 69 L Calcium 9.0 Total Bilirubin 0.3 AST 23 ALT 14 Alkaline Phosphatase 194 H Total Protein 6.8 Albumin 3.4 L Globulin 3.4 Albumin/Globulin Ratio 1.0 Blood Type O Positive Antibody Screen Negative Assessment and Plan Assessment and Plan Assessment and Plan narrative: 36yoG1 @ 38wk6d EGA 1. Preeclampsia without severe features:. New onset elevated BP's past 2 days, and urinary protein consistent with preeclampsia. Preeclamptic labs otherwise normal. Having some questionable vision changes no definitive scotomata, no other symptoms. 2. Pre-existing an IDDM, insulin requiring in 3rd trimester , with overall controlled by glucose log but A1c 6.0 and macrosomia indicates some possible suboptimal control 3. macrosomia with elevated AC ratio 4. Reassuring status, reactive NST Plan: -recommended and she agreed with admission for delivery due to preeclampsia. Plan was for delivery by due to the macrosomia and elevated AC/HC ratio, due to increased risk for shoulder dystocia especially a diabetic. -Will proceed with a primary section for delivery. -Routine admit and repeat preeclamptic labs ordered. Labs normal but platelets are noted to be decreasing over past week. -IV placed. Glucose on CMP was 69. Patient had taken 1/2 her NPH as directed last p.m. since and her metformin, but held insulin today as directed, with likely chance of delivery today. -D5LR started. Will repeat fingerstick glucose every hour until proceed to C- section. section procedure reviewed. Risks of surgery including bleeding, infection, injury to adjacent organs including bowel, bladder, ureters and risk of injury to baby with delivery discussed. Verbal and written consent obtained. -OR notified of add-on surgery, await following ongoing urgent cases. Time Spent with Patient Total time spent with greater than 50% in coordination of care (as documented) at patient's floor/unit and/or counseling patient:: 25 - 35 minutes
[2021-11-16 12:04] LABS: COVID19 -Nasal RAPID Negative (Negative)
[2021-11-16] MEDS: FAMOTIDINE 20 MG/2 ML VIAL IV (18:48)
[2021-11-16] MEDS: CEFAZOLIN 2 GM/100 ML PREMIX 100 ML IV (19:00)
--- NOTE | 2021-11-16 19:18 | SUR.OPER ---
Supine on Padded OR bed, head on pillow, safety belt at thigh, arms secured on padded arm boards at <90 degrees abduction. Bump under right buttock. Legs uncrossed with pillow under knees, gel pad to heels, tape over blanket to lower legs.
[2021-11-16] MEDS: LACTATED RINGERS 1,000 ML 42 ML IV (19:25)
--- NOTE | 2021-11-16 19:29 | SUR.OPER ---
Pre-op FHR 120's. TOB live female @ 1924. Placenta and cord blood x 2 to OB with OB RN and baby.
[2021-11-16 20:33] VITALS: BP 120/86; PULSE 66; RESP 20; TEMP 36.6; O2SAT 100
[2021-11-16 20:38] VITALS: BP 130/83; PULSE 73; RESP 22; TEMP 36.1; O2SAT 100
[2021-11-16 20:41] VITALS: BP 124/84; PULSE 72; RESP 20; TEMP 36.6; O2SAT 100
[2021-11-16 20:42] VITALS: BP 128/87; PULSE 72; RESP 20; TEMP 36.6; O2SAT 98
--- NOTE | 2021-11-16 20:42 | P.OP_ITS ---
Operative Date/Time/Diagnoses Date of procedure: 11/16/21 Time of procedure: 19:30 Pre-op diagnosis: 38 week 6 day , preeclampsia, NIDDM complicating , on insulin for macrosomia Elective primary section due to macrosomia Post-op diagnosis: same (With delivery of a viable female ) Procedure & Clinicians Procedure: Primary lower transverse section Same procedure as scheduled: Yes Indications: 36-year-old G1 female with NIDDM diagnosed prior to . Placed on oral hypoglycemics in early and start on insulin in 3rd trimester for glucose control. Recent ultrasound showed macrosomia with increased AC/HC ratio, and after counseling she opted for primary section for delivery due to increased risk for shoulder dystocia. Prior to her scheduled section, she now developed mild elevated BP's and proteinuria consistent with preeclampsia. Her preeclamptic labs were otherwise normal. She was brought in for earlier delivery for the preeclampsia and added on for primary section today. Surgeon: Kika Li Marketing Sales Supervisor: Annelise Presley Case Click Yes if Unassisted: Yes Anesthesia Type: Epidural Operative Notes Findings: Vigorous female delivered. Weight 4361gm, [id number] Apgars 8 and 9 at 1 and 5 minutes respectively Normal appearing uterus, bilateral tubes and ovaries. Closure Type: primary Specimen(s): other (cord blood to lab) Estimated Blood Loss (mL): 600 Blood products transfused: none Procedure in detail: IV fluids: 1200 ml crystalloid Urine output: 100 mL Description of procedure: She was transferred from the center to the operating room. After an adequate level of spinal anesthesia was obtained, she was placed in the supine position, Phillip catheter was placed and she was prepped and draped in routine sterile fashion. A Pfannenstiel skin incision was made in the lower abdomen and carried down to the level of the fascia. The fascia was incised in the midline and was bluntly extended transversely. The superior and inferior edges of the fascia were elevated and dissected off the rectus muscles with sharp and blunt dissection. The muscles were bluntly in the midline. The parietal peritoneum was elevated, incised and extended bluntly. The bladder blade was placed. The visceral peritoneum was elevated off the lower uterus, incised and the bladder flap was bluntly created. The bladder blade retractor was placed. A transverse incision was made in the lower uterus and the incision was extended transversely with blunt dissection. The amniotic membranes ruptured. Clear fluid was noted. The head was not engaged and was easily elevated to the uterine incision and delivered through the incision with mildl fundal pressure. Shoulders were mildly snugly. Anterior shoulder did not come easily but posterior shoulder was visible and delivered without difficulty with then delivering the posterior arm. Anterior shoulder then delivered without difficulty with fundal assistance followed by the remainder of the body.. The cried spontaneously. The was wiped and placed on a warm blanket. The was shown to the parents after dropping the drape. After 1 minute cord was clamped and cut and the infant was handed off to respiratory therapy who was present for delivery. Cord blood was obtained a specimen. With uterine massage and cord traction, the placenta did not deliver spontaneously. The placenta was manually removed. It appeared intact with a normal three-vessel cord. The uterus was swept clean of adherent clots and membranes. The uterus was brought through the abdominal incision and closed in 2 layers with 0 Vicryl, the 1st layer being in running locking continuous fashion and the 2nd layer being in a vertical imbricating type fashion. There was some persistent bleeding on the left side of the incision which was controlled with a [id number] suture of 0 Vicryl. Hemostasis was noted. The bladder flap, visceral peritoneum was reapproximated with running suture of 3-0 Vicryl. Hemostasis continued. The tubes and ovaries were inspected and noted to be normal. Posterior to the uterus was suctioned of some bloody fluid. The uterus was placed back into the maternal abdomen. The paracolic gutters were inspected and wiped of some minimal blood and fluid. The anterior cul-de-sac was inspected and some clot was removed. The uterine incision was re- inspected. There was some persistent light bleeding along the right third of her incision which was controlled with a [id number]-en-[id number] suture of 0 Vicryl. Good hemostasis was then noted to remain along the incision and through the pelvis. The pelvis was irrigated. Repeat inspection showed continued hemostasis. The abdomen was closed. The parietal peritoneum was reapproximated with running 3- 0 Vicryl. The fascia was closed with running suture of 0 Vicryl, 2 lengths meeting in the midline. The subcutaneous tissue was reapproximated, by reapp roximating Grace's fascia with 2-0 Vicryl. The skin was closed with a subcuticular suture of 4 0 Monocryl. Mastisol then Steri-Strips placed and sterile Aquacel dressing was placed. She tolerated the procedure well and went to the recovery room in stable condition. Complications: none Post-operative Condition: stable Disposition: PACU Plan for aftercare: Transferred to birthing center for routine post / care
[2021-11-17] MEDS: ACETAMINOPHEN 325 MG TABLET 650 MG PO ×3 (00:10→20:40)
[2021-11-17] MEDS: OXYCODONE IR 5 MG TABLET PO (00:10)
[2021-11-17] MEDS: NALBUPHINE 20 MG/ML AMPUL 5 MG IV (00:11)
[2021-11-17] MEDS: KETOROLAC 30 MG/ML VIAL IV ×3 (02:22→16:33)
[2021-11-17 08:06] LABS: Add Manual Diff / Slide Review NO; Basophils Absolute Auto 0 /uL (0-100); Basophils Percent Auto 0.4 % (0-2); Eosinophils Absolute Auto 100 /uL (0-450); Eosinophils Percent Auto 1.1 % (2-4); Hematocrit 29.1 % (36-46); Hemoglobin 9.6 g/dL (12.0-16.0); Lymphocytes Absolute Auto 1400 /uL (1100-4500); Lymphocytes Percent Auto 14.3 % (25-40); Mean Corpuscular HGB Conc 33.2 % (30-36); Mean Corpuscular Hemoglobin 27.2 PG (26-34); Mean Corpuscular Volume 81.8 fL (80-100); Monocytes Absolute Auto 900 /uL (0-900); Monocytes Percent Auto 9.1 % (3-14); Neutrophils Absolute Auto 7600 /uL (1500-7000); Neutrophils Percent Auto 75.1 % (50-75); Platelet Count 134 X10^3/uL (150-400); Red Blood Cell Count 3.55 X10^6/uL (4.0-5.2); Red Cell Distribution Width 15.1 % (11.6-14.8); White Blood Cell Count 10.1 X10^3/uL (4.5-11.0)
[2021-11-17] MEDS: DOCUSATE 100 MG CAPSULE 200 MG PO (08:51)
--- NOTE | 2021-11-17 09:16 | PM.PNPO.1 ---
Subjective Subjective Date Patient Seen: 11/17/21 Time Patient Seen: 09:16 Exam Vital Signs (past 8 hours): 118/70, 98.4 Glucose POC: 69 Narrative Exam Narrative: Up in chair, nursing. Desires to have pang out and shower. +Flatus. No significant oral intake yet. Other: exam deferred as is nursing Objective Labs Result Diagrams: 11/17/21 07:45 11/16/21 08:36 Labs: Laboratory Results - last 24 hr 11/16/21 11/16/21 11/17/21 08:36 10:30 07:45 WBC 10.1 RBC 3.55 L Hgb 9.6 L Hct 29.1 L MCV 81.8 MCH 27.2 MCHC 33.2 RDW 15.1 H Plt Count 134 L Neut % (Auto) 75.1 H Lymph % (Auto) 14.3 L [place] % (Auto) 9.1 Eos % (Auto) 1.1 L Baso % (Auto) 0.4 Neut # (Auto) 7600 H Lymph # (Auto) 1400 [place] # (Auto) 900 Eos # (Auto) 100 Baso # (Auto) 0 SARS-CoV-2 (PCR) Negative Blood Type O Positive Antibody Screen Negative [facility] Medical History Acne (~2011) Chicken pox Cough COVID-19 virus infection Diabetes (~2020) Disc prolapse (~2015) Elevated hemoglobin A1c Frequent UTI (~2020) Irregular menstrual cycle (~2011) Low back problem Mumps Ovarian cyst (~2011) Painful menstrual periods (~2011) Polycystic ovarian syndrome Rhinosinusitis (~2010) Sinusitis Sleep apnea (~2017) UTI in Surgical History History of wisdom tooth extraction Family History Mother Hypertension Unknown Cervical cancer Sister Thalassemia Sister Iron deficiency anemia Father Diabetes mellitus Asthma Grandfather Hypertension Stroke Grandmother Diabetes mellitus Hyperlipidemia Stroke Grandmother Stroke Social History marital status: unmarried,living together number of children: 0 household members: significant other lives independently: Yes housing: house pets and animals: Yes (Cats aware of toxoplasmosis) 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: college occupational status: unemployed current occupational exposures/hazards: No abdi/shinto: Born again Gnosticist travel history: over 6 months ago seatbelt use: always water heater temp set < 120 deg: Yes working smoke detector in home: Yes fire extinguisher in home: Yes carbon monox detector in home: Yes firearms in home: Yes firearms unloaded and locked: Yes do you feel safe at home: Yes Smoking Status: Never smoker second hand exposure: No alcohol intake: former substance use type: does not use during the past year weight has: remained stable well-balanced diet: daily or most days daily servings fruits/ve-4 caffeine: Yes (ocassional, limit 200 mg) Type(s) of exercise: walking Assessment & Plan Post-op Postoperative Procedures: primary CS for macrosomia elevated urine protein in third trimester thrombocytopenia post-op anemia gest DM - required insulin in pg; glucose wnl now Postoperative day: 1 Postoperative status: doing well Postoperative plan: routine post-op care Postoperative plan narrative: check incision later in day continue to monitor glucose 4 times daily Time Spent With Patient Time with patient: less than 15 minutes
[2021-11-17] MEDS: diphenhydrAMINE 25 MG TABLET PO ×2 (12:11→20:40)
[2021-11-18] MEDS: IBUPROFEN 600 MG TABLET PO ×3 (01:31→14:03)
[2021-11-18] MEDS: ACETAMINOPHEN 325 MG TABLET 650 MG PO ×3 (02:18→14:03)
[2021-11-18] MEDS: DOCUSATE 100 MG CAPSULE 200 MG PO (08:02)
--- NOTE | 2021-11-18 13:38 | PM.OBDS.1 ---
Discharge Providers Provider Date of admission: 11/16/21 08:05 Discharge Date: 11/18/21 Primary care physician: Roderick Saldaña MD Consults: 11/16/21 22:50 Consult to Coverage Specialist Routine Comment: Discharge provider: Kika Li MD Summary Hospital Course Date Patient Seen: 11/18/21 Time Patient Seen: 13:20 Diagnoses: 38wk5d , delivered by primary Preeclampsia without severe features Type 2 diabetes complicating , macrosomia Hospital Course: Anna Valderrama is a 36 year old female @ 38wk6d admitted for delivery for preeclampsia.? had been followed more closely due to recent diagnosis prior to of type 2 diabetes. She has a history of PCOS. She had recent borderline BP's. She followed her BP at home and called with mild elevations. On review of her BP log she has had 110-140/80-90s? with BP as high as 140/97, 136/96. Initial BP here 130/90, then decreased to normal. Urinary protein from 2 days ago returned with proteinuria. Preeclamptic labs otherwise normal. She was admitted for delivery for preeclampsia. She was diagnosed with diabetes prior to , was not on any medication yet but monitoring blood glucose.? During she was started on metformin and insulin added at 28 weeks.? Her glucose log during showed overall glucose control, with only mild excursions in the late 3rd trimester, and her A1c decreased from 7.0 to 6.0.? Ultrasound this week however showed EFW increased from 77% to 97% with EFW 4300gm. Due to macrosomia with increased a/c ratio, after counseling patient opted for proceeding with primary section for delivery due to increased risk of shoulder dystocia . She underwent primary section without complications. She has had a normal course. She was not continued on any metformin or insulin as she was not on medication prior to but controlled with strict diet she reports. Her fasting and 2 hour postprandial glucose levels have been normal post delivery. 2 hour post prandials are 70-90. FBS 70s. Her blood pressure has been normal. Highest SBP was 140 after ambulating to bed. She denies any headache, scotomata, nausea or upper abdominal pain. She has incisional discomfort which is controlled with ibuprofen and Tylenol, she has not used any oxycodone yet. She is without problems. The baby is doing well and she desires discharge home today. She just desire a prescription for a little oxycodone in case she has increased incisional discomfort with moving at home. She is being discharged with follow-up appointment in 1 week for Aquacel removal and BP check. Peripartum Data Infant Delivery Method: Section complications: none 1: Gender: Female Disposition of : home Status at Discharge Cognitive/behavioral status at discharge: oriented and at baseline, oriented Functional status at discharge: independent ambulation Overall status at discharge: patient is progressing back to baseline Time Spent with Patient Time attestation: Total time spent providing and/or coordinating discharge services: Time spent: Less than 30 minutes Objective Labs Result Diagrams: 11/17/21 07:45 11/16/21 08:36 Exam Vital Signs (past 8 hours): Temp 98.3F BP 119-140/77-89 Pulse 87 RR17 Narrative Exam Narrative: General: ?Well-appearing female Abdomen: ?Soft, nontender accept expected lilly-incisional discomfort, nondistended. ?Dressing is dry, intact Fundus -1, firm, nontender Extremities: ?Trace pedal edema Discharge Plan Discharge Plan Patient Disposition: Home Provider Discharge Comment: Status post primary section for macrosomia Antepartum Gestational hypertension, preeclampsia Discharge orders & Medications Prescriptions: New acetaminophen 325 mg Tablet 650 mg PO Q6H PRN (Reason: Fever/Mild Pain (1-3)) Qty: 7 0RF docusate sodium 100 mg Capsule 200 mg PO DAILY Qty: 7 0RF ibuprofen 600 mg Tablet 600 mg PO Q6HR PRN (Reason: pain) Qty: 60 0RF oxycodone 5 mg Tablet 5 mg PO Q4H PRN (Reason: Pain, Moderate (4-6)) Qty: 10 0RF Purelan Cream 1 applic topical PRN PRN (Reason: Post Delivery) Qty: 7 0RF metformin 500 mg tablet 500 mg PO DAILY Qty: 90 3RF Continued prenat.vits,tal,npp-nbgw-hhmwr Tablet 1 tab PO DAILY Qty: 60 2RF Rx Instructions: Take once daily. Discontinued insulin lispro 100 unit/mL cartridge 3 unit SUBCUT QACBREAK Qty: 15 1RF Rx Instructions: take with breakfast metformin 1,000 mg tablet 1,000 mg PO BID Qty: 60 3RF Rx Instructions: Take twice daily. Humulin N NPH Insulin KwikPen 100 unit/mL (3 mL) insulin pen 8 unit SUBCUT QPM Qty: 15 1RF No Action (DME) blood-glucose meter [Blood Glucose Monitoring] Kit See Rx Instructions .ROUTE .MEDSUPPLY Qty: 1 0RF Rx Instructions: To use with testing fasting and 2 hr PP blood sugars (DME) insulin syringe-needle U-100 [BD Insulin Syringe] 0.3 mL 29 gauge x 1/2 syringe See Rx Instructions .Route Qty: 100 1RF Rx Instructions: As directed (DME) lancets Misc See Rx Instructions .ROUTE .MEDSUPPLY Qty: 120 3RF Rx Instructions: Testing blood sugars fasting and 2 hr PP (DME) Blood Glucose Test Strip See Rx Instructions .Route Qty: 100 3RF Rx Instructions: Check blood sugars 4 times daily and log on sheet. (DME) pen needle, diabetic [Lite Touch Insulin Pen [place]] 31 gauge x 1/4 needle See Rx Instructions .Route Qty: 100 2RF Rx Instructions: As directed. Choose needle to match kwikpen please Follow up/Referrals: Consultation [Other] - 11/21/21 1:00 pm Kika Li MD [Physician] - 11/25/21 8:30 am (Follow up in one week for incision check. 6 week follow up scheduled for 01/01/2022 at 09:45 am.) Discharge Health Status Multidrug resistant organism: No MDRO Diet/Activity/Treatments Diet: Carb-consistent/Diabetic Activity: No heavy lifting for 6 weeks. Nothing in the vagina for 6 weeks, no tampons and no intercourse. Skin/Wound/Dressing Care Report to your healthcare provider any signs of infection, such as:: chills, fever, increased pain and unusual redness Visit Report/Discharge Packet Instructions: Feeding Your Infant: Ages 0 to 4 Months, DI for , How to Bottlefeed Your Baby Discharge Data Primary Care Provider: Roderick Saldaña
[2021-11-18] MEDS: LANOLIN OINT 7 GM 1 APPLIC TOP (13:57)
[2021-11-18 15:55] VITALS: BP 140/89; PULSE 87; RESP 17; TEMP 36.8
== END 2021-11-18 15:55 | disposition home or self-care (01) | DRG 540 ==
PROVIDERS: Admitting Provider Obstetrics & Gynecology; PCP Family Medicine; Referring Provider Obstetrics & Gynecology; Visit Provider Obstetrics & Gynecology
PROC: 10D00Z1 Extraction of Products of Conception, Low, Open Approach (ICD-10-PCS; CPT 59514; principal; 2021-11-16 16:15)
DX: O24.12 Pre-existing type 2 diabetes mellitus, in childbirth (principal); Z3A.38 38 weeks gestation of pregnancy; Z37.0 Single live birth; Z79.4 Long term (current) use of insulin; O36.63X0 Maternal care for excessive fetal growth, third trimester, not applicable or unspecified; Z79.84 Long term (current) use of oral hypoglycemic drugs; O14.04 Mild to moderate pre-eclampsia, complicating childbirth; Z20.822 Contact with and (suspected) exposure to COVID-19
CPT/HCPCS: 36415; 59050; 59514; 80053; 82962; 85025; 85027; 86850; 86900; 86901; 87635; C9803; G0379; J0690; J1885; J2274; J2300; J2405; J2590; J2704; J3010; J7121

== ENCOUNTER 2021-11-19 00:03 | Emergency (ER) | payer OTHER, MEDICAID, SELFPAY ==
[2021-11-19] VITALS (7 sets, daily range): BP systolic 114–144; BP diastolic 69–89; PULSE 78–84; RESP 18–27; O2SAT 98–100; BMI 30.6
--- NOTE | 2021-11-19 00:32 | ED.GENADULT ---
HPI - General Adult General Chief complaint: Chest Pain Stated complaint: chest pain, high bp Time Seen by Provider: 11/19/21 00:27 History of Present Illness HPI narrative: Patient is a 36-year-old female status post day 2, with history of preeclampsia gestational diabetes presenting this evening with elevated blood pressure chest pain. She says she was discharged this afternoon blood pressures were 140/89, she was not discharged home on labetalol because of stable blood pressures. However what she got home she had heart having some chest discomfort of blood pressures claudine to as high as 160 and 159. At that point she called her OBGYN who recommended she come to the ER for evaluation. She was having some epigastric pain no shortness of breath. Feeling a bit better now home. Blood pressure has come down since being in the emergency department. Related Data Previous Rx's Medication Instructions Recorded blood-glucose meter (Blood Glucose #1 ea 05/14/21 Monitoring kit) blood sugar diagnostic (Blood #100 ea 05/23/21 Glucose Test strips) lancets #120 ea 05/23/21 prenat.vits,tal,cfc-bohf-ntoqz 1 tab PO DAILY #60 tabs 06/11/21 pen needle, diabetic 31 gauge x #100 ea 09/05/21 1/4 (Lite Touch Insulin Pen [place]) insulin syringe-needle U-100 0.3 #100 ea 09/25/21 mL 29 gauge x 1/2 (BD Insulin Syringe) acetaminophen 325 mg tablet 650 mg PO Q6H PRN Fever/Mild Pain 11/18/21 (1-3) #7 tabs docusate sodium 100 mg capsule 200 mg PO DAILY #7 caps 11/18/21 ibuprofen 600 mg tablet 600 mg PO Q6HR PRN pain #60 tabs 11/18/21 lanolin (Purelan topical cream) 1 applic topical PRN PRN Post 11/18/21 Delivery #7 grams metformin 500 mg tablet 500 mg PO DAILY #90 tabs 11/18/21 oxycodone 5 mg tablet 5 mg PO Q4H PRN Pain, Moderate 11/18/21 (4-6) #10 tabs Allergies Allergy/AdvReac Type Severity Reaction Status Date / Time No Known Drug Allergies Allergy Verified 11/19/21 00:31 Review of Systems Review of Systems Narrative: GENERAL: Denies chills, fatigue, malaise, fever, sweats, travel HEENT: Denies sinus pain, ear pain, sore throat, difficulty swallowing, neck pain RESPIRATORY: Denies dyspnea, cough, wheezing, hemoptysis, sputum. CARDIOVASCULAR: Denies chest pain, palpitations, orthopnea, edema GASTROINTESTINAL: Denies nausea, vomiting, abdominal pain, diarrhea, constipation, melena. : Denies dysuria, frequency, incontinence, hematuria, urinary retention, flank pain. MUSCULOSKELETAL: Denies weakness, joint pain, or bony pain SKIN: No rash, no erythema, no pruritus NEUROLOGIC: Denies weakness, dizziness, headache, numbness, change in speech, confusion PSYCHIATRIC: No concerning psychosocial issues. 12 point review of systems is negative except for those stated above and HPI Patient History Medical History Acne (~2011) Chicken pox Cough COVID-19 virus infection Diabetes (~2020) Disc prolapse (~2015) Elevated hemoglobin A1c Frequent UTI (~2020) Irregular menstrual cycle (~2011) Low back problem Mumps Ovarian cyst (~2011) Painful menstrual periods (~2011) Polycystic ovarian syndrome Rhinosinusitis (~2010) Sinusitis Sleep apnea (~2017) UTI in Surgical History History of wisdom tooth extraction Family History Mother Hypertension Unknown Cervical cancer Sister Thalassemia Sister Iron deficiency anemia Father Diabetes mellitus Asthma Grandfather Hypertension Stroke Grandmother Diabetes mellitus Hyperlipidemia Stroke Grandmother Stroke Social History marital status: unmarried,living together number of children: 0 household members: significant other lives independently: Yes housing: house pets and animals: Yes (Cats aware of toxoplasmosis) 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: college occupational status: unemployed current occupational exposures/hazards: No abdi/rastafari: Born again Gnosticist travel history: over 6 months ago seatbelt use: always water heater temp set < 120 deg: Yes working smoke detector in home: Yes fire extinguisher in home: Yes carbon monox detector in home: Yes firearms in home: Yes firearms unloaded and locked: Yes do you feel safe at home: Yes Smoking Status: Never smoker second hand exposure: No alcohol intake: former substance use type: does not use during the past year weight has: remained stable well-balanced diet: daily or most days daily servings fruits/ve-4 caffeine: Yes (ocassional, limit 200 mg) Type(s) of exercise: walking Smoking Status: Never smoker Exam Initial Vital Signs Initial Vital Signs: Vital Signs Pulse Rate 82 11/19/21 00:30 Respiratory Rate 27 H 11/19/21 00:30 Blood Pressure 144/76 H 11/19/21 00:30 Pulse Oximetry 99 11/19/21 00:30 Oxygen Delivery Method 11/19/21 00:30 GENERAL: Well-appearing, well-nourished and in no acute distress. HEENT: Head atraumatic,EOMI, pupils reactive, face symmetric, moist mucous membranes CARDIOVASCULAR: Regular rate and rhythm without murmurs, rubs or gallops. RESPIRATORY: Breath sounds equal bilaterally, no wheezes rales or rhonchi. ABDOMEN: Soft, nontender EXTREMITIES: Normal range of motion, no clubbing. +1 bilateral nonpitting edema Neurovascularly intact NEUROLOGICAL: Alert and oriented x4.Normal gait and speech. SKIN: Warm, dry, no laceration, no petechiae, no rashes or lesions. Course Orders Ordered: ED Orders 11/19/21 EKG-12 Lead Routine 11/19/21 00:13 CBC Auto Diff [Complete Blood Count AUTO DIFF] Stat CMP [Comprehensive Metabolic Panel] Stat Troponin & CK Cardiac Panel Stat 11/19/21 02:00 UA dip and micro [Urinalysis and Microscopic] Stat Urine Culture Stat 11/19/21 03:17 Chest [XR chest 1V] Stat 11/19/21 03:20 EKG-12 Lead Stat 11/19/21 03:50 Trop I [Troponin I] Stat Vital Signs Vital signs: Vital Signs - 8 hr 11/19/21 00:31 11/19/21 02:00 11/19/21 03:42 Pulse Rate 84 78 83 Respiratory Rate 18 21 20 Blood Pressure 144/76 H 130/76 139/86 Pulse Oximetry 100 100 100 Oxygen Delivery Method Room Air Room Air Room Air 11/19/21 01:30 11/19/21 01:00 11/19/21 00:30 Pulse Rate 80 80 82 Respiratory Rate 20 22 27 H Blood Pressure 114/69 127/76 144/76 H Pulse Oximetry 98 98 99 Oxygen Delivery Method Room Air Room Air 11/19/21 04:35 Pulse Rate 82 Respiratory Rate 18 Blood Pressure 135/89 Pulse Oximetry 98 Oxygen Delivery Method Room Air Medical Decision Making Lab Data Result diagrams: 11/19/21 00:13 11/19/21 00:13 Labs: Lab Results 11/19/21 11/19/21 11/19/21 Range/Units 00:13 00:13 02:00 WBC 11.4 H (4.5-11.0) X10^3/uL RBC 4.02 (4.0-5.2) X10^6/uL Hgb 10.9 L (12.0-16.0) g/dL Hct 32.9 L (36-46) % MCV 81.7 (80-100) fL MCH 27.0 (26-34) PG MCHC 33.1 (30-36) % RDW 16.1 H (11.6-14.8) % Plt Count 154 (150-400) X10^3/uL Neut % (Auto) 70.7 (50-75) % Lymph % (Auto) 17.5 L (25-40) % [place] % (Auto) 8.9 (3-14) % Eos % (Auto) 2.5 (2-4) % Baso % (Auto) 0.4 (0-2) % Neut # (Auto) 8100 H (5157-0857) /uL Lymph # (Auto) 2000 (7647-0469) /uL [place] # (Auto) 1000 H (0-900) /uL Eos # (Auto) 300 (0-450) /uL Baso # (Auto) 0 (0-100) /uL Sodium 137 (137-145) mmol/L Potassium 3.8 (3.4-5.1) mmol/L Chloride 105 (98-107) mmol/L Carbon Dioxide 26 (22-32) mmol/L BUN 9 (7-17) mg/dL Creatinine 0.56 (0.52-1.04) mg/dL Estimated GFR > 60 (>60) mL/min BUN/Creatinine Ratio 16.1 (6-22) Glucose 91 (70-100) mg/dL Calcium 8.9 (8.4-10.2) mg/dL Total Bilirubin 0.5 (0.2-1.3) mg/dL AST 41 H (14-36) IU/L ALT 23 (<35) IU/L Alkaline Phosphatase 158 H (38-126) U/L Total Creatine Kinase 200 H (30-135) U/L CK-MB (CK-2) 3.88 H (<2.37) ng/mL CK-MB (CK-2) Rel Index 1.9 (1.5-5.0) % Troponin I < 0.012 (0.01-0.034) ng/mL Total Protein 6.8 (6.3-8.2) g/dL Albumin 3.3 L (3.5-5.0) g/dL Globulin 3.5 (1.7-4.1) g/dL Albumin/Globulin Ratio 0.9 L (1.0-2.8) Urine Color Yellow Urine Appearance Clear Urine pH 7.0 (4.5-8.0) Ur Specific [place] 1.010 (1.000-1.035) Urine Protein Negative (Negative) Urine Glucose (UA) Negative (Negative) g/dL Urine Ketones Negative (NEGATIVE) Urine Occult Blood 3+ H (Negative) Urine Nitrate Negative (Negative) Urine Bilirubin Negative (NEGATIVE) Urine Urobilinogen 0.2 (0.2) E.U./dL Ur Leukocyte Esterase Trace H (NEGATIVE) Urine RBC 1-5/hpf (0-5/HPF) Urine WBC 1-5/hpf (0-5/HPF) Ur Squamous Epith Cells 1-5 /hpf (0-5/HPF) Urine Bacteria Few (2-10) H (None) Ur Culture Indicated? Specimen cultured 11/19/21 Range/Units 03:50 WBC (4.5-11.0) X10^3/uL RBC (4.0-5.2) X10^6/uL Hgb (12.0-16.0) g/dL Hct (36-46) % MCV (80-100) fL MCH (26-34) PG MCHC (30-36) % RDW (11.6-14.8) % Plt Count (150-400) X10^3/uL Neut % (Auto) (50-75) % Lymph % (Auto) (25-40) % [place] % (Auto) (3-14) % Eos % (Auto) (2-4) % Baso % (Auto) (0-2) % Neut # (Auto) (0028-1112) /uL Lymph # (Auto) (6967-8147) /uL [place] # (Auto) (0-900) /uL Eos # (Auto) (0-450) /uL Baso # (Auto) (0-100) /uL Sodium (137-145) mmol/L Potassium (3.4-5.1) mmol/L Chloride (98-107) mmol/L Carbon Dioxide (22-32) mmol/L BUN (7-17) mg/dL Creatinine (0.52-1.04) mg/dL Estimated GFR (>60) mL/min BUN/Creatinine Ratio (6-22) Glucose (70-100) mg/dL Calcium (8.4-10.2) mg/dL Total Bilirubin (0.2-1.3) mg/dL AST (14-36) IU/L ALT (<35) IU/L Alkaline Phosphatase (38-126) U/L Total Creatine Kinase (30-135) U/L CK-MB (CK-2) (<2.37) ng/mL CK-MB (CK-2) Rel Index (1.5-5.0) % Troponin I < 0.012 (0.01-0.034) ng/mL Total Protein (6.3-8.2) g/dL Albumin (3.5-5.0) g/dL Globulin (1.7-4.1) g/dL Albumin/Globulin Ratio (1.0-2.8) Urine Color Urine Appearance Urine pH (4.5-8.0) Ur Specific [place] (1.000-1.035) Urine Protein (Negative) Urine Glucose (UA) (Negative) g/dL Urine Ketones (NEGATIVE) Urine Occult Blood (Negative) Urine Nitrate (Negative) Urine Bilirubin (NEGATIVE) Urine Urobilinogen (0.2) E.U./dL Ur Leukocyte Esterase (NEGATIVE) Urine RBC (0-5/HPF) Urine WBC (0-5/HPF) Ur Squamous Epith Cells (0-5/HPF) Urine Bacteria (None) Ur Culture Indicated? Urine Dip Bedside Urine Glucose Negative Bedside Urine Bilirubin - Negative Bedside Urine Ketone - Negative Urine Specific [place] 1.010 Bedside Urine Occult Blood +++ Bedside Urine pH 6.5 Bedside Urine Protein - Negative Bedside Urine Urobilinogen - Negative Bedside Urine Nitrite - Negative Bedside Urine Leukocytes - Negative Esterase Point of care testing: Urine Dip Bedside Urine Glucose Negative Bedside Urine Bilirubin - Negative Bedside Urine Ketone - Negative Urine Specific [place] 1.010 Bedside Urine Occult Blood +++ Bedside Urine pH 6.5 Bedside Urine Protein - Negative Bedside Urine Urobilinogen - Negative Bedside Urine Nitrite - Negative Bedside Urine Leukocytes - Negative Esterase Imaging Data Chest x-ray: Radiologist's Impression: Preliminary report no acute cardiopulmonary process ECG Data Interpretation: EKG 1. Normal sinus rhythm rate 82 IN interval 172 QRS 68 QTC [address] changes no T-wave inversions MDM Narrative Medical decision making narrative: Patient is day 2. Presenting today is elevated blood pressure and chest pain. She was previously diagnosed with preeclampsia which led to and delivery. Today patient presents with elevated blood pressure and chest pain. Workup today is negative. Patient's blood pressure was elevated at home however she has had multiple readings here in the emergency department which are not elevated or even borderline. She was not discharged home on any antihypertensive she was not given any here in the ED. She has no sign of preeclampsia she does not have any protein in her urine slight elevation in AST but not twice the upper limit. Platelets are within normal limits. His the she is ambulatory to the restroom. She said that she did have pain in her chest it did go to her left shoulder she is a diabetic. Overall feeling significantly better Discharge Plan Departure Patient Disposition: Home Clinical Impression: Elevated blood pressure reading, Atypical chest pain Instructions: Pre-eclampsia, DI for Atypical Chest Pain Activity Restrictions/Additional Instructions: *You have been diagnosed with atypical chest pain, elevated blood pressure *What to do: At this time her blood pressure is not elevated. Please continue to monitor check 1 or 2 times daily. *Continue to take medications as directed Take all prescribed medication as directed *Follow up with your primary care provider in 2-3 days or call [phone] Follow-up with OBGYN tomorrow, call the office 1st thing in the morning *Return to ER if you should have increasing chest pain, blood pressure greater than 155/100 or any new, worsening or concerning symptoms Prescriptions: No Action (DME) blood-glucose meter [Blood Glucose Monitoring] Kit See Rx Instructions .ROUTE .MEDSUPPLY Qty: 1 0RF Rx Instructions: To use with testing fasting and 2 hr PP blood sugars (DME) insulin syringe-needle U-100 [BD Insulin Syringe] 0.3 mL 29 gauge x 1/2 syringe See Rx Instructions .Route Qty: 100 1RF Rx Instructions: As directed (DME) lancets Misc See Rx Instructions .ROUTE .MEDSUPPLY Qty: 120 3RF Rx Instructions: Testing blood sugars fasting and 2 hr PP (DME) Blood Glucose Test Strip See Rx Instructions .Route Qty: 100 3RF Rx Instructions: Check blood sugars 4 times daily and log on sheet. prenat.vits,tal,mpu-btnj-[id number] Tablet 1 tab PO DAILY Qty: 60 2RF Rx Instructions: Take once daily. (DME) pen needle, diabetic [Lite Touch Insulin Pen [place]] 31 gauge x 1/4 needle See Rx Instructions .Route Qty: 100 2RF Rx Instructions: As directed. Choose needle to match kwikpen please acetaminophen 325 mg Tablet 650 mg PO Q6H PRN (Reason: Fever/Mild Pain (1-3)) Qty: 7 0RF docusate sodium 100 mg Capsule 200 mg PO DAILY Qty: 7 0RF ibuprofen 600 mg Tablet 600 mg PO Q6HR PRN (Reason: pain) Qty: 60 0RF oxycodone 5 mg Tablet 5 mg PO Q4H PRN (Reason: Pain, Moderate (4-6)) Qty: 10 0RF Purelan Cream 1 applic topical PRN PRN (Reason: Post Delivery) Qty: 7 0RF metformin 500 mg tablet 500 mg PO DAILY Qty: 90 3RF Referrals: Kika Li MD [Physician] - Roderick Saldaña MD [Primary Care Provider] - Visit Report Forms: Patient Portal/API
[2021-11-19 00:48] LABS: Add Manual Diff / Slide Review NO; Basophils Absolute Auto 0 /uL (0-100); Basophils Percent Auto 0.4 % (0-2); Eosinophils Absolute Auto 300 /uL (0-450); Eosinophils Percent Auto 2.5 % (2-4); Hematocrit 32.9 % (36-46); Hemoglobin 10.9 g/dL (12.0-16.0); Lymphocytes Absolute Auto 2000 /uL (1100-4500); Lymphocytes Percent Auto 17.5 % (25-40); Mean Corpuscular HGB Conc 33.1 % (30-36); Mean Corpuscular Volume 81.7 fL (80-100); Monocytes Absolute Auto 1000 /uL (0-900); Monocytes Percent Auto 8.9 % (3-14); Neutrophils Absolute Auto 8100 /uL (1500-7000); Neutrophils Percent Auto 70.7 % (50-75); Platelet Count 154 X10^3/uL (150-400); Red Blood Cell Count 4.02 X10^6/uL (4.0-5.2); Red Cell Distribution Width 16.1 % (11.6-14.8); White Blood Cell Count 11.4 X10^3/uL (4.5-11.0)
[2021-11-19 00:55] LABS: Alanine Aminotransferase 23 IU/L (<35); Albumin 3.3 g/dL (3.5-5.0); Albumin Globulin Ratio 0.9 (1.0-2.8); Alkaline Phosphatase 158 U/L (38-126); Aspartate Aminotransferase 41 IU/L (14-36); BUN Creatinine Ratio 16.1 (6-22); Bilirubin Total 0.5 mg/dL (0.2-1.3); Blood Urea Nitrogen 9 mg/dL (7-17); Calcium 8.9 mg/dL (8.4-10.2); Carbon Dioxide 26 mmol/L (22-32); Chloride 105 mmol/L (98-107); Creatine Kinase 200 U/L (30-135); Estimated Glomerular Filt Rate > 60 mL/min (>60); Globulin 3.5 g/dL (1.7-4.1); Glucose 91 mg/dL (70-100); HEMOLYSIS < 15 (0-50); Potassium 3.8 mmol/L (3.4-5.1); Sodium 137 mmol/L (137-145); Total Protein 6.8 g/dL (6.3-8.2)
[2021-11-19 01:06] LABS: Troponin I < 0.012 ng/mL (0.01-0.034)
[2021-11-19 01:10] LABS: CKMB % Relative Index 1.9 % (1.5-5.0); Creatine Kinase MB 3.88 ng/mL (<2.37)
[2021-11-19 02:57] LABS: Appearance Urine UA CLEAR; Bilirubin Urine UA NEGATIVE (NEGATIVE); Color Urine UA YELLOW; Glucose Urine UA NEGATIVE (Negative); Ketones Urine UA NEGATIVE (NEGATIVE); Leukocyte Esterase Urine UA TRACE (NEGATIVE); Nitrite Urine UA NEGATIVE (Negative); Occult Blood Urine UA 3+ (Negative); Protein Urine UA NEGATIVE (Negative); Urobilinogen Urine UA 0.2 E.U./dL (0.2)
[2021-11-19 03:05] LABS: Bacteria Urine Few (2-10); Culture Indicated Urine Specimen Cultured; RBC Urine 1-5/HPF (0-5/HPF); Squamous Epithelial Cell Urine 1-5 /HPF (0-5/HPF); WBC Urine 1-5/HPF (0-5/HPF)
--- NOTE | 2021-11-19 03:17 | DI.RAD.S_ITS ---
PROCEDURE: XR CHEST 1V INDICATIONS: chest pain TECHNIQUE: One view of the chest was acquired. COMPARISON: None. FINDINGS: Surgical changes and devices: None. Lungs and pleura: Lungs are clear. No pleural effusions or pneumothorax. Mediastinum: Mediastinal contours appear normal. Heart size is normal. Bones and chest wall: No suspicious bony lesions. Overlying soft tissues appear unremarkable. IMPRESSION: No acute cardiopulmonary disease. No significant discrepancy with the police shift commander radiology preliminary report. Dictated by: Thu Johnson M.D. on 11/19/2021 at 8:12 Approved by: Thu Johnson M.D. on 11/19/2021 at 8:13
[2021-11-19 04:21] LABS: Troponin I < 0.012 ng/mL (0.01-0.034)
== END 2021-11-19 04:59 | disposition home or self-care (01) ==
PROVIDERS: Emergency Provider Emergency Medicine; PCP Family Medicine
DX: I10 Essential (primary) hypertension (principal); R07.89 Other chest pain
CPT/HCPCS: 71045; 80053; 81001; 81003; 82550; 82553; 84484; 85025; 87086; 93005; 93010; 99283; 99284

== ENCOUNTER → 2021-11-21 14:12 | Outpatient (CLI) | payer OTHER, MEDICAID, SELFPAY ==
[2021-11-21 14:32] LABS: Add Manual Diff / Slide Review NO; Basophils Absolute Auto 0 /uL (0-100); Basophils Percent Auto 0.5 % (0-2); Eosinophils Absolute Auto 300 /uL (0-450); Eosinophils Percent Auto 3.3 % (2-4); Hematocrit 31.8 % (36-46); Hemoglobin 10.5 g/dL (12.0-16.0); Lymphocytes Absolute Auto 1400 /uL (1100-4500); Lymphocytes Percent Auto 18.1 % (25-40); Mean Corpuscular HGB Conc 32.9 % (30-36); Mean Corpuscular Hemoglobin 27.3 PG (26-34); Mean Corpuscular Volume 82.8 fL (80-100); Monocytes Absolute Auto 600 /uL (0-900); Monocytes Percent Auto 8.2 % (3-14); Neutrophils Absolute Auto 5400 /uL (1500-7000); Neutrophils Percent Auto 69.9 % (50-75); Platelet Count 219 X10^3/uL (150-400); Red Blood Cell Count 3.84 X10^6/uL (4.0-5.2); White Blood Cell Count 7.8 X10^3/uL (4.5-11.0)
[2021-11-21 14:43] LABS: Alanine Aminotransferase 40 IU/L (<35); Albumin 3.4 g/dL (3.5-5.0); Alkaline Phosphatase 129 U/L (38-126); Aspartate Aminotransferase 42 IU/L (14-36); BUN Creatinine Ratio 15.6 (6-22); Bilirubin Total 0.3 mg/dL (0.2-1.3); Blood Urea Nitrogen 10 mg/dL (7-17); Calcium 8.6 mg/dL (8.4-10.2); Carbon Dioxide 25 mmol/L (22-32); Chloride 104 mmol/L (98-107); Estimated Glomerular Filt Rate > 60 mL/min (>60); Globulin 3.4 g/dL (1.7-4.1); Glucose 97 mg/dL (70-100); HEMOLYSIS < 15 (0-50); Potassium 4.3 mmol/L (3.4-5.1); Sodium 137 mmol/L (137-145); Total Protein 6.8 g/dL (6.3-8.2); Uric Acid 5.1 mg/dL (2.5-6.2)
[2021-11-21 18:10] LABS: Creatinine Urine Random 67.8 mg/dL; Protein (Total) Urine Random 18 mg/dL (0-12); Protein Creatinine Ratio Urine 0.26 GRAM/24H
== END ==
PROVIDERS: PCP Family Medicine; Referring Provider Obstetrics & Gynecology; Visit Provider Obstetrics & Gynecology
DX: R03.0 Elevated blood-pressure reading, without diagnosis of hypertension (principal)
CPT/HCPCS: 36415; 80053; 82570; 84156; 84550; 85025

== ENCOUNTER → 2021-12-02 15:57 | Outpatient (CLI) | payer OTHER, MEDICAID, SELFPAY ==
[2021-12-02 17:42] LABS: Prolactin 111.2 ng/mL (3.0-18.6)
[2021-12-02 18:21] LABS: TSH w/ Reflex to FT4 0.74 uIU/mL (0.47-4.68)
[2021-12-10 20:17] LABS: Percent Free Testosterone 1.02 % (0.50-2.80); Testosterone Free 0.21 ng/dL (0.10-0.85); Testosterone Total 20.9 ng/dL (10.0-55.0)
== END ==
PROVIDERS: Family Medicine; PCP Family Medicine; Referring Provider Obstetrics & Gynecology; Visit Provider Obstetrics & Gynecology
DX: O92.70 Unspecified disorders of lactation (principal); E11.9 Type 2 diabetes mellitus without complications; E28.2 Polycystic ovarian syndrome
CPT/HCPCS: 36415; 84146; 84402; 84403; 84443

== ENCOUNTER → 2022-01-24 11:59 | Outpatient (CLI) | payer OTHER, MEDICAID, SELFPAY ==
[2022-01-24 14:04] LABS: Influenza A - CEPHEID Flu A NEGATIVE (NEGATIVE); Influenza B - CEPHEID Flu B NEGATIVE (NEGATIVE); Respiratory Syncytial Virus Negative (Negative)
[2022-01-24 14:06] LABS: COVID-19 CEPHEID 4-PLEX PCR Negative (Negative)
== END ==
PROVIDERS: PCP Family Medicine; Visit Provider Family Medicine
DX: J31.0 Chronic rhinitis (principal); J32.9 Chronic sinusitis, unspecified; Z20.822 Contact with and (suspected) exposure to COVID-19
CPT/HCPCS: 0241U

== ENCOUNTER → 2022-01-24 12:05 | Outpatient (CLI) | payer OTHER, MEDICAID, SELFPAY ==
--- NOTE | 2022-01-24 12:06 | DI.RAD.S_ITS ---
PROCEDURE: XR WRIST RT MIN 3V INDICATIONS: right wrist pain/swelling TECHNIQUE: 4 views of the wrist were acquired. COMPARISON: None. FINDINGS: Bones: No fractures or dislocations. No suspicious bony lesions. Scaphoid view: Intact. Soft tissues: No suspicious soft tissue calcifications. IMPRESSION: No acute osseous abnormality. Consider follow-up radiographs in 10-14 days. Dictated by: Boogie Peguero M.D. on 01/24/2022 at 14:43 Approved by: Boogie Peguero M.D. on 01/24/2022 at 14:44
== END ==
PROVIDERS: PCP Family Medicine; Referring Provider Family Medicine; Visit Provider Family Medicine
DX: M25.531 Pain in right wrist; M25.431 Effusion, right wrist; J31.0 Chronic rhinitis; J32.9 Chronic sinusitis, unspecified; Z20.822 Contact with and (suspected) exposure to COVID-19
CPT/HCPCS: 0241U; 73110

== ENCOUNTER → 2022-02-12 11:59 | Outpatient (CLI) | payer OTHER, MEDICAID, SELFPAY ==
[2022-02-12 12:31] LABS: Add Manual Diff / Slide Review NO; Basophils Absolute Auto 100 /uL (0-100); Basophils Percent Auto 0.7 % (0-2); Eosinophils Absolute Auto 300 /uL (0-450); Eosinophils Percent Auto 4.6 % (2-4); Hematocrit 42.5 % (36-46); Lymphocytes Absolute Auto 2200 /uL (1100-4500); Lymphocytes Percent Auto 30.8 % (25-40); Mean Corpuscular Hemoglobin 27.7 PG (26-34); Monocytes Absolute Auto 800 /uL (0-900); Monocytes Percent Auto 11.1 % (3-14); Neutrophils Absolute Auto 3700 /uL (1500-7000); Neutrophils Percent Auto 52.8 % (50-75); Platelet Count 281 X10^3/uL (150-400); Red Blood Cell Count 5.06 X10^6/uL (4.0-5.2); Red Cell Distribution Width 13.2 % (11.6-14.8)
[2022-02-12 12:36] LABS: Hemoglobin A1C% w Est Avg Glu 7.1 % (4.0-6.0)
[2022-02-12 13:09] LABS: Alanine Aminotransferase 44 IU/L (<35); Albumin 4.1 g/dL (3.5-5.0); Albumin Globulin Ratio 0.9 (1.0-2.8); Alkaline Phosphatase 85 U/L (38-126); Aspartate Aminotransferase 34 IU/L (14-36); BUN Creatinine Ratio 20.8 (6-22); Bilirubin Total 0.6 mg/dL (0.2-1.3); Blood Urea Nitrogen 10 mg/dL (7-17); C-Reactive Protein Quant 1.4 mg/dL (<1.0); Calcium 9.1 mg/dL (8.4-10.2); Carbon Dioxide 24 mmol/L (22-32); Chloride 100 mmol/L (98-107); Cholesterol 288 mg/dL (140-199); Estimated Glomerular Filt Rate > 60 mL/min (>60); Globulin 4.7 g/dL (1.7-4.1); Glucose 149 mg/dL (70-100); HDL Cholesterol 42 mg/dL (40-60); HEMOLYSIS < 15 (0-50); LDL Cholesterol Calculated 199 mg/dL (<100); Potassium 4.1 mmol/L (3.4-5.1); Sodium 136 mmol/L (137-145); Total Protein 8.8 g/dL (6.3-8.2); Triglycerides 234 mg/dL (35-150)
[2022-02-12 14:34] LABS: TSH w/ Reflex to FT4 1.83 uIU/mL (0.47-4.68)
[2022-02-12 20:12] LABS: Creatinine Urine Random 66.5 mg/dL
[2022-02-12 20:16] LABS: Microalbumi Creatinin Ratio Ur 154.8 ug/mg CR (<30); Microalbumin Urine Random 10.3 mg/dL (0-1.6)
[2022-02-14 17:01] LABS: ANA Screen, IFA Negative (.)
== END ==
PROVIDERS: PCP Family Medicine; Referring Provider Family Medicine; Visit Provider Family Medicine
DX: E11.9 Type 2 diabetes mellitus without complications (principal); J31.0 Chronic rhinitis; J32.9 Chronic sinusitis, unspecified; M25.40 Effusion, unspecified joint; M25.50 Pain in unspecified joint
CPT/HCPCS: 36415; 80053; 80061; 82043; 82570; 83036; 84443; 85025; 86038; 86140

== ENCOUNTER → 2022-03-11 10:00 | Outpatient (CLI) | payer OTHER, MEDICAID, SELFPAY ==
--- NOTE | 2022-03-26 14:55 | DIAB.FU ---
Follow-up Diabetes Education Assessment Name: Anna Valderrama Date: 03/11/22 Time: 108-9030a Dx: Type II Diabetes Follow-up virtually using [employer] platform. Anna presents for diabetes follow-up after 11/16/21 delivery. Baby Margy is almost 4 months. She has seen Dr. Saldaña for primary care. Endorses difficulty with BP after preeclampsia complicating resulting in c section. Started amlodipine. Stopped due to concerns with medication use. d/c in early February. Elevated cholesterol and taking Lipitor. Worries about high cholesterol foods versus sat fats. Trying to focus on lean proteins, ie fish and chicken. Endorses especially high sat fat intake over the holidays, high steak intake. Reports sleep schedule impacting eating. Sometimes two large meals per day. Asking partner not to bring soda in the house due to difficulty avoiding intake. Stopped taking Metformin for a while due to feeling overwhelmed by health concerns/meds. Diet recall indicates 30-60g CHO per meal. Physical Activity: walking since she found out about elevated cholesterol. Walking daily but weather dependent. Self-Monitoring Blood Glucose: not as consistent as previous. Checked FBG today, 113mg/dl (in goal). FBG was mostly in 130s per her repot. Interesting in more consistent checks. Diabetes Medications: 500mg Metformin BID Pertinent Labs: 02/12/22: HgA1c 7.1% T H Cholesterol: 288 H LDL: 199H HDL: 42 L Past Medical History: (Last Reviewed 11/17/21 @ 09:19 by Annelise Moreno MD) Acne (~2011) Chicken pox Childhood Cough COVID-19 virus infection Diabetes (~2020) Diagnosed 2020 by A1c, diet controlled before Disc prolapse (~2015) Elevated hemoglobin A1c Frequent UTI (~2020) Irregular menstrual cycle (~2011) Low back problem Mumps Childhood Ovarian cyst (~2011) Painful menstrual periods (~2011) Polycystic ovarian syndrome Rhinosinusitis (~2010) Sinusitis Sleep apnea (~2017) UTI in Intervention: This participant was very receptive. Provided appropriate educational handouts. Discussed the following topics: Recent blood sugar results and restarting checks Her personal goals in Review of general nutrition recommendations and current intake Physical activity plan and impact on blood sugars Heart healthy nutrition: focusing on reduction of saturated fats Impact of sugar sweetened beverages on BG Created SMART goals for patient self-care and success. Goals: Saavedra egg in avocado or olive oil Check BG: FBG and/or 1-2 hour pc Avoid soda Cont walking Follow-up: TAMMI ROCHE follow-up 04/16/22. For visits after 04/16 needs another referral. Judy Israel RDN, [facility] Certified Diabetes Care and Automotive Drivability Technician P: [phone] Thank you for this referral
== END ==
PROVIDERS: PCP Family Medicine; Referring Provider Family Medicine; Visit Provider Obstetrics & Gynecology
DX: E11.9 Type 2 diabetes mellitus without complications (principal); Z71.3 Dietary counseling and surveillance; Z79.84 Long term (current) use of oral hypoglycemic drugs
CPT/HCPCS: G0108

== ENCOUNTER → 2022-04-23 13:51 | Outpatient (CLI) | payer OTHER, MEDICAID, SELFPAY ==
--- NOTE | 2022-04-23 | DI.CT.S_ITS ---
PROCEDURE: CT SINUS SCREEN WO CON INDICATIONS: Chronic pansinusitis TECHNIQUE: Noncontrast 3.0 mm axial images acquired from the frontal sinuses to the mid-sella, with coronal and sagittal reformats. For radiation dose reduction, the following was used: automated exposure control, adjustment of mA and/or kV according to patient size. COMPARISON: None. FINDINGS: Image quality: Excellent. Maxillary Sinuses: No bony remodeling or destruction. Sinuses are clear. Ethmoid Air Cells: No bony remodeling or destruction. Sinuses are clear. Sphenoid Sinuses: No bony remodeling or destruction. Sinuses are clear. Frontal Sinuses: No bony remodeling or destruction. Sinuses are clear. Ostiomeatal Complexes: Ostiomeatal complexes are patent. No Tor cells. Miscellaneous: Visualized intra-orbital contents are normal. No cynthia bullosa or paradoxical turbinate curvature. No nasal septal deviation. IMPRESSION: No findings of acute or chronic sinusitis. Normal sinus CT study. The Dictated by: Vaughn Pickett M.D. on 04/23/2022 at 17:01 Approved by: Vaughn Pickett M.D. on 04/23/2022 at 17:01
== END ==
PROVIDERS: PCP Family Medicine; Referring Provider Otolaryngology; Visit Provider Otolaryngology
DX: J32.4 Chronic pansinusitis (principal); R09.82 Postnasal drip; R51.9 Headache, unspecified
CPT/HCPCS: 70486

== ENCOUNTER → 2022-05-07 11:24 | Outpatient (CLI) | payer OTHER, MEDICAID, SELFPAY ==
--- NOTE | 2022-05-21 15:06 | DIAB.FU ---
Follow-up Diabetes Education Assessment Name: Anna Valderrama Date: 05/07/22 Time: 1110-4640a Dx: Type II Diabetes Anna presents for follow-up virtually using [employer] platform. Reports her whole family has been sick recently, including baby. Reports frustration with elevated BG. States she feels with her current life responsibilities she is unable to make significant lifestyle changes. Wishes to increase Metformin. Has upcoming PCP visit to discuss further. Reports stress with managing DM. Reports cravings for sweets. Difficulty keeping rice to 1c at meals. Not sleeping well due to having baby that wakes in the night, which she did notice impacts her BG. States her main motivation is to stay healthy for baby. She has cut out soda. Has been walking more frequently. Also using heart healthy oils as discussed last visit. Physical Activity: Had been walking daily until getting sick recently. Self-Monitoring Blood Glucose: Reports FBG 130-160mg/dl and postprandial readings 191-234mg/dl. Diabetes Medications: 500mg Metformin BID Pertinent Labs: 02/12/22: HgA1c 7.1% T H Cholesterol: 288 H LDL: 199H HDL: 42 L Past Medical History: (Last Reviewed 11/17/21 @ 09:19 by Annelise Moreno MD) Acne (~2011) Chicken pox Childhood Cough COVID-19 virus infection Diabetes (~2020) Diagnosed 2020 by A1c, diet controlled before Disc prolapse (~2015) Elevated hemoglobin A1c Frequent UTI (~2020) Irregular menstrual cycle (~2011) Low back problem Mumps Childhood Ovarian cyst (~2011) Painful menstrual periods (~2011) Polycystic ovarian syndrome Rhinosinusitis (~2010) Sinusitis Sleep apnea (~2017) UTI in Intervention: This participant was very receptive. Provided appropriate educational handouts. Discussed the following topics: Recent blood sugar results and trends Medication management and potential for increasing Metformin after discussion with PCP Review of general nutrition recommendations and current intake Impact of stress and responsibilities and motivators for her Physical activity plan and impact on blood sugars Created SMART goals for patient self-care and success. Goals: Saavedra egg in avocado or olive oil- met Check BG: FBG and/or 1-2 hour pc- met Avoid soda- met Cont walking- met Discuss potential for increasing Metformin with PCP- new Follow-up: TAMMI ROCHE follow-up in 4 weeks. Discuss stress management more in detail next visit. Judy Israel RDN, [facility] Certified Diabetes Care and Vice President Sales And Marketing P: [phone] Thank you for this referral
== END ==
PROVIDERS: PCP Family Medicine; Referring Provider Family Medicine; Visit Provider Family Medicine
DX: E11.9 Type 2 diabetes mellitus without complications (principal); Z79.84 Long term (current) use of oral hypoglycemic drugs; Z71.3 Dietary counseling and surveillance
CPT/HCPCS: G0108

== ENCOUNTER → 2022-05-10 09:33 | Outpatient (CLI) | payer OTHER, MEDICAID, SELFPAY ==
[2022-05-10 10:25] LABS: Alanine Aminotransferase 38 IU/L (<35); Albumin 4.3 g/dL (3.5-5.0); Albumin Globulin Ratio 1.2 (1.0-2.8); Alkaline Phosphatase 89 U/L (38-126); Aspartate Aminotransferase 29 IU/L (14-36); BUN Creatinine Ratio 18.2 (6-22); Bilirubin Total 0.6 mg/dL (0.2-1.3); Blood Urea Nitrogen 10 mg/dL (7-17); Calcium 9.2 mg/dL (8.4-10.2); Carbon Dioxide 29 mmol/L (22-32); Chloride 99 mmol/L (98-107); Cholesterol 146 mg/dL (140-199); Estimated Glomerular Filt Rate > 60 mL/min (>60); Globulin 3.5 g/dL (1.7-4.1); Glucose 171 mg/dL (70-100); HDL Cholesterol 31 mg/dL (40-60); HEMOLYSIS < 15 (0-50); LDL Cholesterol Calculated 92 mg/dL (<100); Potassium 4.2 mmol/L (3.4-5.1); Sodium 137 mmol/L (137-145); Total Protein 7.8 g/dL (6.3-8.2); Triglycerides 114 mg/dL (35-150)
[2022-05-10 11:59] LABS: Creatinine Urine Random 214.5 mg/dL
[2022-05-10 12:37] LABS: Microalbumi Creatinin Ratio Ur 164.1 ug/mg CR (<30); Microalbumin Urine Random 35.2 mg/dL (0-1.6)
[2022-05-12 02:03] LABS: x Labcorp Estim. Avg Glu (eAG) 171 mg/dL (.); x Labcorp Hemoglobin A1c 7.6 % (4.8-5.6)
== END ==
PROVIDERS: PCP Family Medicine; Referring Provider Family Medicine; Visit Provider Family Medicine
DX: E11.9 Type 2 diabetes mellitus without complications (principal); R80.9 Proteinuria, unspecified
CPT/HCPCS: 36415; 80053; 80061; 82043; 82570; 83036

== ENCOUNTER → 2022-06-10 13:00 | Outpatient (CLI) | payer OTHER, MEDICAID, SELFPAY ==
--- NOTE | 2022-07-01 14:52 | DIAB.MNTFU ---
Follow-up Diabetes Medical Nutrition Therapy Assessment Name: Anna Valderrama Date: 06/10/22 Time: 1:15-145p Dx: Type II Diabetes Anna presents today for DM follow-up virtually using [employer] platform. Increased hgA1c from 7.1% to 7.6%. Overall, she is struggling with maintaining lifestyle changes. Cholesterol (LDL) improved. Increased Metformin to 1000mg BID. States cholesterol has improved, d/c?d statin. Continues on Losartan for preventative/protective care. Diet Recall: wake 11a B: coffee light on the condensed milk, leftovers or bagel or egg and toast L: Rice, veggies, protein D: Rice, veggies, protein Rice portions likely >1c per report. Intends to go back to 1c. Feels she had a low, hungry, didn?t check BG. Not at risk for lows with current med regimen. Also reports a time: ate ?a lot? of rice with beef. I knew BG was high and didn?t want to check. Wanting to find more balance. Hoping to increase veggies. Usually has veggies daily. Continues avoiding soda. Anthropometrics: Ht: 63 Wt: 156# last PCP visit 05/2022 Physical Activity: No program. No walking recently. So busy with wedding planning lately. Self-Monitoring Blood Glucose: yesterday forgot HS Metformin, 158 BG FBG today Reprots a 131mg/dl 2 hours after recent meal. Also reports a 126mg/dl HS reading. Just recently restarted SMBG again Had wedding last week. Asking for BG log record to keep track. Diabetes Medications: 1000mg Metformin BID Pertinent Labs: 05/10/22 hgA1c: 7.6% ALT: 38 H AST 29 T Cholesterol: 146 LDL: 92 HDL: 31 L 02/12/22: HgA1c 7.1% T H Cholesterol: 288 H LDL: 199H HDL: 42 L Past Medical History: (Last Reviewed 11/17/21 @ 09:19 by Annelise Moreno MD) Acne (~2011) Chicken pox Childhood Cough COVID-19 virus infection Diabetes (~2020) Diagnosed 2020 by A1c, diet controlled before Disc prolapse (~2015) Elevated hemoglobin A1c Frequent UTI (~2020) Irregular menstrual cycle (~2011) Low back problem Mumps Childhood Ovarian cyst (~2011) Painful menstrual periods (~2012) Polycystic ovarian syndrome Rhinosinusitis (~2010) Sinusitis Sleep apnea (~2018) UTI in Nutrition Rx: Carbohydrates: Meal:45g Snack:15-30g Nutrition Diagnosis: Excessive CHO intake r/t stage of change contemplative/preparation aeb pt report Physical inactivity r/t stage of change and schedule aeb pt report Intervention: This participant was very receptive. Provided appropriate educational handouts. Discussed the following topics: Blood sugar review and trends. Impact of food intake on results. Barriers to change Carb portions Checking FBG Physical activity plan and barriers Fiber intake and impact on BG Created SMART goals for patient self-care and success. Goals: Discuss potential for increasing Metformin with PCP- met Check FBG- new Walk 2x per week- new Try switching to brown rice- new Follow-up: TAMMI ROCHE follow-up in 4 weeks Judy Israel RDN, [facility] Certified Diabetes Care and Kennel Manager P: [phone] Thank you for this referral
== END ==
PROVIDERS: PCP Family Medicine; Referring Provider Family Medicine; Visit Provider Family Medicine
DX: E11.9 Type 2 diabetes mellitus without complications (principal); Z71.3 Dietary counseling and surveillance; Z79.84 Long term (current) use of oral hypoglycemic drugs
CPT/HCPCS: 97803

== ENCOUNTER → 2022-07-15 14:11 | Outpatient (CLI) | payer OTHER, MEDICAID, SELFPAY ==
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
== END ==
PROVIDERS: PCP Family Medicine; Referring Provider Family Medicine; Visit Provider Family Medicine
DX: E11.9 Type 2 diabetes mellitus without complications (principal); Z79.84 Long term (current) use of oral hypoglycemic drugs; Z71.3 Dietary counseling and surveillance
CPT/HCPCS: G0108

== ENCOUNTER → 2022-08-06 12:43 | Outpatient (CLI) | payer OTHER, MEDICAID, SELFPAY ==
[2022-08-06 14:13] LABS: Creatinine Urine Random 284.3 mg/dL
[2022-08-06 14:17] LABS: Microalbumi Creatinin Ratio Ur 22.1 ug/mg CR (<30); Microalbumin Urine Random 6.3 mg/dL (0-1.6)
[2022-08-07 06:17] LABS: Labcorp Hemoglobin (Hb) A1c 6.6 % (4.8-5.6)
== END ==
PROVIDERS: PCP Family Medicine; Referring Provider Family Medicine; Visit Provider Family Medicine
DX: E11.9 Type 2 diabetes mellitus without complications (principal); R80.9 Proteinuria, unspecified
CPT/HCPCS: 36415; 82043; 82570; 83036

== ENCOUNTER → 2022-08-14 14:05 | Outpatient (CLI) | payer OTHER, MEDICAID, SELFPAY ==
--- NOTE | 2022-08-14 14:06 | DI.US.S_ITS ---
PROCEDURE: US OB <= 14 WEEKS FETUS INDICATIONS: Dating and viability OUTSIDE/PRIOR DATING DATA: Last menstrual period (LMP): 06/22/2022. LMP-based estimated date of delivery (ALEYDA): 03/29/2023. First dating scan (date and location): 08/14/2022. Estimated date of delivery (ALEYDA) from first dating scan: 03/15/2019. TECHNIQUE: Real-time scanning was performed of the fetus and maternal pelvic organs, with image documentation. Endovaginal scanning was also performed to better visualize the fetus and maternal ovaries. COMPARISON: [facility], , OB <= 14 WEEKS FETUS, 04/23/2021, 11:42. FINDINGS: Embryo: Gestational sac containing 2.8 cm pole corresponds with a 9 week 4 day gestation. Heart rate: 168 beats per minute Maternal organs: Uterine fibroid measures 3.3 cm on the left IMPRESSION: Single live intrauterine consistent with a 9 week 4 day gestation Approved by: Eliceo Gilmore M.D. on 08/14/2022 at 19:44
== END ==
PROVIDERS: PCP Family Medicine; Referring Provider Obstetrics & Gynecology; Visit Provider Obstetrics & Gynecology
DX: O34.11 Maternal care for benign tumor of corpus uteri, first trimester (principal); D25.9 Leiomyoma of uterus, unspecified; Z3A.09 9 weeks gestation of pregnancy
CPT/HCPCS: 76801

== ENCOUNTER → 2022-09-02 19:34 | Outpatient (CLI) | payer OTHER, MEDICAID, SELFPAY | PROVIDERS: PCP Family Medicine; Visit Provider Physician Assistant | DX: M54.9 Dorsalgia, unspecified (principal) | CPT/HCPCS: 87086 ==

== ENCOUNTER 2022-09-02 19:48 | Emergency (ER) | payer OTHER, MEDICAID, SELFPAY ==
[2022-09-02 19:53] VITALS: BP 134/82; PULSE 115; RESP 18; TEMP 37; O2SAT 100; BMI 25.7
--- NOTE | 2022-09-02 20:06 | DI.US.S_ITS ---
PROCEDURE: US OB <= 14 WEEKS FETUS INDICATIONS: PAIN OUTSIDE/PRIOR DATING DATA: Last menstrual period (LMP): 06/22/2022. LMP-based estimated date of delivery (ALEYDA): 03/29/2023. First dating scan (date and location): 08/14/2022. Estimated date of delivery (ALEYDA) from first dating scan: 03/15/2023. TECHNIQUE: Real-time scanning was performed of the fetus, with image documentation and biometric measurements. COMPARISON: [facility], OB <= 14 WEEKS FETUS, 08/14/2022, 14:13. FINDINGS: General: A single living intrauterine gestation is present. heart rate: 178 beats per minute. biometrics: Biparietal diameter: 1.9 cm, 13 weeks 0 days Head circumference: 7.1 cm, 12 weeks 6 days Abdominal circumference: 6.0 cm, 12 weeks 6 days Femur length: 0.9 cm, 12 weeks 4 days Clinically estimated gestational age: 12 weeks 2 days Composite gestational age from present scan: 12 weeks 6 days Maternal organs: Ovaries not visualized in the adnexa. Uterine fibroid seen on prior study not discretely visualized. IMPRESSION: 1. Single living intrauterine demonstrating appropriate interval growth with composite gestational age of 12 weeks 6 days. We strive to produce accurate, complete, and clear reports of imaging services. To assist us in improving patient care, this report was composed using standard report templates and voice recognition software. Therefore, it may contain abnormal punctuation, insertions and/or omissions. Occasional wrong-word or sound-alike substitutions may occur. Though we review the report and make efforts to correct it, we do recommend that the report be read carefully in proper context to recognize any text inaccuracies. Dictated by: Jeronimo Hartmann M.D. on 09/02/2022 at 22:01 Approved by: Jeronimo Hartmann M.D. on 09/02/2022 at 22:04
[2022-09-02] MEDS: SODIUM CHLORIDE 0.9% 1,000 ML 1000 ML IV (20:22)
--- NOTE | 2022-09-02 20:29 | ED_ITS ---
HPI - Abdominal Pain General Chief Complaint: Abdominal Pain Stated Complaint: lower abd pain 12 weeks Time Seen by Provider: 09/02/22 20:05 Source: patient Mode of arrival: Ambulatory History of Present Illness HPI narrative: 37-year-old female is a at about 13 weeks that presents from the walk-in clinic for evaluation of lower pelvic discomfort over the course of the day or so. She denies dysuria, but does state she has been urinating more than normal today She denies vaginal bleeding or discharge. She does have some left lower back pain that goes into her hip and she states that she has had problems with lumbar radiculopathy in the past and that this is not necessarily anything new. Related Data Previous Rx's Medication Instructions Recorded blood-glucose meter (Blood Glucose #1 ea 05/14/21 Monitoring kit) blood sugar diagnostic (Blood #100 ea 05/23/21 Glucose Test strips) lancets #120 ea 05/23/21 acetaminophen 325 mg tablet 650 mg PO Q6H PRN Fever/Mild Pain 11/18/21 (1-3) #7 tabs prenat.vits,tal,nvl-fsxq-cwrll 1 tab PO DAILY #60 tabs 02/24/22 metformin 1,000 mg tablet 1,000 mg PO BIDWMEAL #180 tabs 05/14/22 labetalol 100 mg tablet 100 mg PO BID hypertension #60 tabs 07/29/22 Allergies Allergy/AdvReac Type Severity Reaction Status Date / Time No Known Drug Allergies Allergy Verified 09/02/22 19:36 Review of Systems Review of Systems Narrative: GENERAL: Denies chills, fatigue, malaise, fever, sweats. HEENT: Denies sinus pain, ear pain, sore throat, difficulty swallowing, dizziness. RESPIRATORY: Denies dyspnea, cough, wheezing, hemoptysis, sputum. CARDIOVASCULAR: Denies chest pain, palpitations, orthopnea, edema, GASTROINTESTINAL: Denies nausea, vomiting, abdominal pain, diarrhea, constipation, melena. : Denies dysuria, frequency, incontinence, hematuria, urinary retention. MUSCULOSKELETAL: denies weakness, joint pain, or bony pain SKIN: Denies rash, skin lesions, or other NEUROLOGIC: Denies weakness, headache, numbness, change in speech, confusion, seizures, incoordination. PSYCHIATRIC: No concerning psychosocial issues. 12 point review of systems is negative except for those stated above Patient History Medical History Acne (~2011) Chicken pox Cough COVID-19 virus infection Diabetes (~2020) Disc prolapse (~2015) Frequent UTI (~2020) Irregular menstrual cycle (~2011) Low back problem Mumps Ovarian cyst (~2011) Painful menstrual periods (~2011) Polycystic ovarian syndrome Rhinosinusitis (~2010) Sinusitis Sleep apnea (~2017) UTI in Surgical History History of wisdom tooth extraction Previous section Family History Mother Hypertension Family/Other Cervical cancer Sister Thalassemia Sister Iron deficiency anemia Father Diabetes mellitus Asthma Brain tumor Grandfather Hypertension Stroke Grandmother Diabetes mellitus Hyperlipidemia Stroke Grandmother Stroke Social History marital status: number of children: 1 household members: spouse and children lives independently: Yes caregiver/support person: Yes housing: house pets and animals: Yes (Cats aware of toxoplasmosis) 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) occupational status: unemployed current occupational exposures/hazards: No abdi/synagogue: [employer] travel history: over 6 months ago seatbelt use: always water heater temp set < 120 deg: Yes working smoke detector in home: Yes fire extinguisher in home: Yes carbon monox detector in home: Yes firearms in home: No do you feel safe at home: Yes Smoking Status: Never smoker second hand exposure: No alcohol intake: former (occasionally when not ) substance use type: does not use during the past year weight has: remained stable well-balanced diet: daily or most days daily servings fruits/ve or more times/day caffeine: Yes (one cup coffee in AM) Type(s) of exercise: walking frequency: daily duration: 15-30 minutes/day Smoking Status: Never smoker Substance Use Type: does not use Exam Initial Vital Signs Initial Vital Signs: Vital Signs Temperature 98.6 F 09/02/22 19:53 Pulse Rate 115 H 09/02/22 19:53 Respiratory Rate 18 09/02/22 19:53 Blood Pressure 134/82 09/02/22 19:53 Pulse Oximetry 100 09/02/22 19:53 Oxygen Delivery Method Room Air 09/02/22 19:53 Course Orders Ordered: ED Orders 09/02/22 20:06 US OB <= 14 weeks fetus Stat VBG [Venous Blood Gas] Stat 09/02/22 20:15 Complete Blood Count AUTO DIFF Stat Comprehensive Metabolic Panel Stat Ketones (Beta-Hydroxybutyrate) Stat Lipase Stat Discontinued Medications Acetaminophen (Acetaminophen 325 Mg Tablet) 975 mg PO NOW ONE Stop: 09/02/22 21:51 Last Admin: 09/02/22 22:03 Dose: 975 mg Documented By: JOSUE Sodium Chloride (Normal Saline 0.9%) 1,000 mls @ 1,000 mls/hr IV BOLUS ONE Stop: 09/02/22 21:05 Last Infusion: 09/02/22 21:06 Dose: 0 mls/hr Documented By: Admin: 09/02/22 20:22 Dose: 1,000 mls/hr Documented By: JOSUE Vital Signs Vital signs: Vital Signs - 8 hr 09/02/22 23:24 Pulse Rate 122 H Respiratory Rate 18 Blood Pressure 107/65 Pulse Oximetry 99 Oxygen Delivery Method Room Air MDM - Abdominal Pain Lab Data 09/02/22 20:15 09/02/22 20:15 Labs: Lab Results 09/02/22 09/02/22 09/02/22 Range/Units 20:06 20:15 20:15 WBC 10.8 (4.5-11.0) X10^3/uL RBC 4.86 (4.0-5.2) X10^6/uL Hgb 13.7 (12.0-16.0) g/dL Hct 40.5 (36-46) % MCV 83.4 (80-100) fL MCH 28.2 (26-34) PG MCHC 33.8 (30-36) % RDW 13.0 (11.6-14.8) % Plt Count 204 (150-400) X10^3/uL Neut % (Auto) 85.1 H (50-75) % Lymph % (Auto) 4.1 L (25-40) % [place] % (Auto) 8.0 (3-14) % Eos % (Auto) 2.4 (2-4) % Baso % (Auto) 0.4 (0-2) % Neut # (Auto) 9200 H (0758-1307) /uL Lymph # (Auto) 400 L (7427-5526) /uL [place] # (Auto) 900 (0-900) /uL Eos # (Auto) 300 (0-450) /uL Baso # (Auto) 0 (0-100) /uL VBG pH 7.33 (7.33-7.43) VBG pCO2 47.4 (45-50) mmHg VBG pO2 16 L (35-45) mmHg VBG HCO3 25 (24-28) mmol/L VBG Total CO2 27 (24-29) mmol/L VBG O2 Saturation 19 L (70-75) % VBG Base Excess -1.0 L (0-4) mmol/L FiO2 21 Sodium 133 L (137-145) mmol/L Potassium 3.8 (3.4-5.1) mmol/L Chloride 98 (98-107) mmol/L Carbon Dioxide 26 (22-32) mmol/L BUN 5 L (7-17) mg/dL Creatinine 0.44 L (0.52-1.04) mg/dL Estimated GFR > 60 (>60) mL/min BUN/Creatinine Ratio 11.4 (6-22) Glucose 156 H (70-100) mg/dL Calcium 9.1 (8.4-10.2) mg/dL Total Bilirubin 0.4 (0.2-1.3) mg/dL AST 26 (14-36) IU/L ALT 20 (<35) IU/L Alkaline Phosphatase 47 (38-126) U/L Total Protein 8.4 H (6.3-8.2) g/dL Albumin 4.5 (3.5-5.0) g/dL Globulin 3.9 (1.7-4.1) g/dL Albumin/Globulin Ratio 1.2 (1.0-2.8) Lipase 94 (23-300) U/L Ketones 0.03 (<0.27) mmol/L Point of care testing: Urine Dip Bedside Urine Glucose 1000 mg/dl Bedside Urine Bilirubin - Negative Bedside Urine Ketone - Negative Urine Specific [place] 1.005 Bedside Urine Occult Blood - Negative Bedside Urine pH 6.5 Bedside Urine Protein - Negative Bedside Urine Urobilinogen - Negative Bedside Urine Nitrite - Negative Bedside Urine Leukocytes - Negative Esterase MDM Narrative Medical decision making narrative: [37] year old patient presents with urinary frequency and lower abdominal disc omfort Multiple etiologies for patient's symptoms considered including, but not limited to: [UTI versus pyelonephritis versus problems with versus other] Prior Charts reviewed in our EMR Primary Historian: patient Labs reviewed and interpreted by myself: No leukocytosis or left shift, no signs of anemia, VBG without signs of acidosis to suggest diabetic emergency, electrolytes within normal limits, serum glucose 156, urine without signs of infection Imaging reviewed: ultrasound demonstrates single living intrauterine with appropriate interval growth measuring 12 weeks 6 days Patient's symptoms improved over duration of stay with above-stated therapies. No signs of an infectious process, pain is well controlled, she is tolerating orals, no evidence of sepsis, no signs diabetic emergency Findings and discharge diagnosis discussed with patient/family followed by verbalization of understanding Return precautions discussed with patient/family whom verbalize understanding of diagnosis and plan Discharge Plan Departure Patient Disposition: Home Clinical Impression: Abdominal pain in Instructions: Managing Symptoms of Activity Restrictions/Additional Instructions: *You have been diagnosed with [lower abdominal discomfort. As we discussed your history and physical exam as well as labs and ultrasound are reassuring] *What to do: *Please continue to take your regular medications as directed. [ *Please follow up with Dr. Meyers in 2-3 days, call for an appointment. Let them know you were seen in the Emergency Department and that we ask that you be seen in follow up. We will electronically transmit a record of today's note *Return to Emergency Department if you should have any new, worsening or concerning symptoms, such as [fever greater than 101 F, shaking chills, worsening pain, persistent vomiting or other bothersome symptoms] Prescriptions: No Action (DME) blood-glucose meter [Blood Glucose Monitoring] Kit See Rx Instructions .ROUTE .MEDSUPPLY Qty: 1 0RF Rx Instructions: To use with testing fasting and 2 hr PP blood sugars prenat.vits,tal,bkl-emez-sakkg Tablet 1 tab PO DAILY Qty: 60 2RF Rx Instructions: Take once daily. labetalol 100 mg tablet 100 mg PO BID Qty: 60 1RF (DME) lancets Misc See Rx Instructions .ROUTE .MEDSUPPLY Qty: 120 3RF Rx Instructions: Testing blood sugars fasting and 2 hr PP (DME) Blood Glucose Test Strip See Rx Instructions .Route Qty: 100 3RF Rx Instructions: Check blood sugars 4 times daily and log on sheet. metformin 1,000 mg tablet 1,000 mg PO BIDWMEAL Qty: 180 3RF acetaminophen 325 mg Tablet 650 mg PO Q6H PRN (Reason: Fever/Mild Pain (1-3)) Qty: 7 0RF Referrals: Roderick Saldaña MD [Primary Care Provider] - Stand Alone Forms: Patient Portal/API
[2022-09-02 20:33] LABS: Add Manual Diff / Slide Review NO; Basophils Absolute Auto 0 /uL (0-100); Basophils Percent Auto 0.4 % (0-2); Eosinophils Absolute Auto 300 /uL (0-450); Eosinophils Percent Auto 2.4 % (2-4); Hematocrit 40.5 % (36-46); Hemoglobin 13.7 g/dL (12.0-16.0); Lymphocytes Absolute Auto 400 /uL (1100-4500); Lymphocytes Percent Auto 4.1 % (25-40); Mean Corpuscular HGB Conc 33.8 % (30-36); Mean Corpuscular Hemoglobin 28.2 PG (26-34); Mean Corpuscular Volume 83.4 fL (80-100); Monocytes Absolute Auto 900 /uL (0-900); Neutrophils Absolute Auto 9200 /uL (1500-7000); Neutrophils Percent Auto 85.1 % (50-75); Platelet Count 204 X10^3/uL (150-400); Red Blood Cell Count 4.86 X10^6/uL (4.0-5.2); White Blood Cell Count 10.8 X10^3/uL (4.5-11.0)
[2022-09-02 20:41] LABS: Alanine Aminotransferase 20 IU/L (<35); Albumin 4.5 g/dL (3.5-5.0); Albumin Globulin Ratio 1.2 (1.0-2.8); Alkaline Phosphatase 47 U/L (38-126); Aspartate Aminotransferase 26 IU/L (14-36); BUN Creatinine Ratio 11.4 (6-22); Bilirubin Total 0.4 mg/dL (0.2-1.3); Blood Urea Nitrogen 5 mg/dL (7-17); Calcium 9.1 mg/dL (8.4-10.2); Carbon Dioxide 26 mmol/L (22-32); Chloride 98 mmol/L (98-107); Estimated Glomerular Filt Rate > 60 mL/min (>60); Globulin 3.9 g/dL (1.7-4.1); Glucose 156 mg/dL (70-100); HEMOLYSIS < 15 (0-50); Lipase 94 U/L (23-300); Potassium 3.8 mmol/L (3.4-5.1); Sodium 133 mmol/L (137-145); Total Protein 8.4 g/dL (6.3-8.2)
[2022-09-02 20:44] LABS: Ketones (Beta-Hydroxybutyrate) 0.03 mmol/L (<0.27)
[2022-09-02] MEDS: ACETAMINOPHEN 325 MG TABLET 975 MG PO (22:03)
[2022-09-02 23:24] VITALS: BP 107/65; PULSE 122; RESP 18; O2SAT 99
[2022-09-03 03:36] LABS: HCO3 VBG 25 mmol/L (24-28); PCO2 VBG 47.4 mmHg (45-50); PO2 VBG 16 mmHg (35-45); Total CO2 VBG 27 mmol/L (24-29); pH VBG 7.33 (7.33-7.43)
[2022-09-03 03:37] LABS: Fractionated Inspired Oxygen 21; Oxygen Saturation VBG 19 % (70-75)
== END 2022-09-02 23:32 | disposition home or self-care (01) ==
PROVIDERS: Emergency Provider Emergency Medicine; PCP Family Medicine
DX: O26.91 Pregnancy related conditions, unspecified, first trimester (principal); R10.2 Pelvic and perineal pain; Z3A.13 13 weeks gestation of pregnancy; M54.9 Dorsalgia, unspecified
CPT/HCPCS: 36415; 76801; 80053; 81002; 81003; 82009; 82805; 82948; 83690; 85025; 87086; 96360; 99284

== ENCOUNTER → 2022-09-04 12:00 | Outpatient (CLI) | payer OTHER, MEDICAID, SELFPAY ==
[2022-09-04 13:20] LABS: Add Manual Diff / Slide Review NO; Basophils Absolute Auto 0 /uL (0-100); Basophils Percent Auto 0.3 % (0-2); Eosinophils Absolute Auto 100 /uL (0-450); Eosinophils Percent Auto 1.5 % (2-4); Hematocrit 39.9 % (36-46); Hemoglobin 13.3 g/dL (12.0-16.0); Lymphocytes Absolute Auto 1100 /uL (1100-4500); Lymphocytes Percent Auto 12.6 % (25-40); Mean Corpuscular HGB Conc 33.4 % (30-36); Mean Corpuscular Volume 83.9 fL (80-100); Monocytes Absolute Auto 1100 /uL (0-900); Monocytes Percent Auto 12.3 % (3-14); Neutrophils Absolute Auto 6400 /uL (1500-7000); Neutrophils Percent Auto 73.3 % (50-75); Platelet Count 198 X10^3/uL (150-400); Red Blood Cell Count 4.76 X10^6/uL (4.0-5.2); Red Cell Distribution Width 13.2 % (11.6-14.8); White Blood Cell Count 8.7 X10^3/uL (4.5-11.0)
[2022-09-04 14:54] LABS: Urine N gonorrhoeae NOT DETECTED
[2022-09-04 15:03] LABS: Urine Chlamydia NOT DETECTED
[2022-09-04 17:39] LABS: Hepatitis B Surface Antigen NEGATIVE s/c (NEGATIVE)
[2022-09-04 17:59] LABS: HIV 1 & 2 Ab/Ag 4th Gen Combo NEGATIVE (NEGATIVE); Hep C Virus Ab w/Reflex Quant NEGATIVE s/c (NEGATIVE)
[2022-09-05 08:10] LABS: RPR Screen Non Reactive (Non Reactive); Varicella IgG Antibody 3526 index (Immune >165)
== END ==
PROVIDERS: Specialist; PCP Family Medicine; Referring Provider Obstetrics & Gynecology; Visit Provider Obstetrics & Gynecology
DX: Z34.81 Encounter for supervision of other normal pregnancy, first trimester (principal); Z3A.12 12 weeks gestation of pregnancy
CPT/HCPCS: 36415; 80055; 86787; 86803; 86850; 86900; 86901; 87086; 87389; 87491; 87591

== ENCOUNTER → 2022-09-12 12:27 | Outpatient (CLI) | payer OTHER, MEDICAID, SELFPAY ==
--- NOTE | 2022-09-12 14:03 | DIAB.GDA ---
Addendum entered by Diana Sequeira 09/12/22 14:43: Pt interested in continuous glucose monitor. This technology would benefit pt who has hx GDM with insulin therapy. Original Note: Initial Gestational Diabetes Assessment Name: Anna Valderrama Date: 09/12/22 Time: 2pm Dx: Gestational Diabetes (also present with 9mo daughter, pt was on both basal and mealtime insulin) Provider: Luigi ALEYDA: 03/15/23 P:1 Weeks: 14w with 2nd daughter (did genetic testing) Pt was having nausea and vomiting early in , starting to resolve. Pt agrees to telehealth visit due to covid+ status. Pt has minor sx. Because of this pt has not been checking BG, though did check this morning, FBG 99 and 1h PP 175, both over target. Previous pt started on Metformin, was increased to 1,000mg metformin bid, continued to have difficulties limiting carbohydrate intake to goal levels, started NPH then advanced to adding mealtime insulin. pt continued 1,000mg metformin and was diagnosed with T2DM with A1c 7.6. Most recent A1c in July 2022 6.6 indicating good glycemic control. Diet Recall: B: heavy meal (rice plus meat plus veggies) D: heavy meal (rice plus meat plus veggies) This morning FBG 99 and 1hPP 175 (1/2c rice, beans and veggies, peanuts, squash, beef) with chocolate milk Ovaltine tempted by 's soda in the home enjoying feeding her 9mo daughter real foods! (beans, meat, fruits, veggies) Physical Activity: up to 30 minutes walking with daughter Self-Monitoring Blood Glucose: Date Pre Post Pre Post Pre Post HS 09/12/22 99 175 Diabetes Medications: 1,000mg Metformin bid (continued from ) Pt may benefit from increase in DM meds, however, only one set of BG numbers recorded, unclear if outlier or indicative of ongoing hyperglycemia. Pertinent Labs: A1c 6.6 Nutrition Rx: Carbohydrates: Meal: 45-g lunch and dinner; 30g breakfast Snack: 15-30g Nutrition Diagnosis: Altered nutrition related lab value r/t T2DM in dx aeb recent A1c, hx GDM on insulin therapy. Intervention: This participant was very receptive. Provided appropriate educational handouts. Discussed the following topics: GDM pathophysiology and impact of hyperglycemia on mom and baby Risk for T2DM for mom and baby in the future Plate Method, meal timing, carb counting, pairing macronutrients and spreading out CHO for better BG management Blood glucose goals (FBG: <95 and 1 hour <140 mg/dL); importance of checking 4x per day (FBG and pc) Impact of macronutrients on blood glucose Recommended servings for carbohydrates at meals and snacks Brainstormed appropriate meal plan based on her food preferences Role of physical activity and following provider guidelines for safety Goals: Switch from Ovaltine to Fairlife chocolate milk to eliminate sugar sweetened beverages- NEW Avoid soda consumption, if desires bubbles, choose unsweetened carbonated water- NEW Pt not getting 3 servings dairy calcium foods, aim for increased consumption of fortified plant based milk and tofu for calcium sources- NEW Follow-up: RDN follow-up in person 10/02/22 at 11:30am Diana Sequeira MS RD Clinical Dietitian T: [phone] F: [phone] Thank you for this referral
== END ==
PROVIDERS: Absent Provider Family Medicine; Family Provider Family Medicine; PCP Family Medicine; Referring Provider Obstetrics & Gynecology; Visit Provider Obstetrics & Gynecology
DX: O24.415 Gestational diabetes mellitus in pregnancy, controlled by oral hypoglycemic drugs (principal); Z3A.14 14 weeks gestation of pregnancy; Z71.3 Dietary counseling and surveillance
CPT/HCPCS: 97802

== ENCOUNTER → 2022-10-02 10:52 | Outpatient (CLI) | payer OTHER, MEDICAID, SELFPAY ==
--- NOTE | 2022-10-02 11:38 | DIAB.GDFU ---
Follow-up Gestational Diabetes Assessment Name: Anna Valderrama Date: 10/02/22 Time: 11:30am Dx: Gestational Diabetes Provider: Luigi ALEYDA: 03/15/23 P: 1 Weeks: 16 +6 Diet Recall: B: dinner leftovers (meat, veg, white rice) with ovaltine or coffee c sugar in the raw, sometimes OJ Sn: peanuts and or 1.5 bananas D: meat, veg, rice/rice noodles, has sip husbands cola in evening if she needs to burp-never drinks more than a few sips. drinks 1-2 ila daily, also likes juices. Pt generally consumes two meals and two snacks daily. Her difficulties in managing PP BG include large portions rice/rice noodles and sugar sweetened drinks including fruit juices that are homemade. Pt currently -9# from prepregnancy weight. Physical Activity: little to no intentional physical activity Self-Monitoring Blood Glucose: Pt forgot BG log Date Pre Post Pre Post Pre Post HS 104-108 150-160 avg 1h PP almost always above 100 one above 250 Diabetes Medications: Metformin 1,000mg bid- ongoing starting 15U NPH HS with 5U lipro c meals starting today -New Pertinent Labs: pre- A1c 6.6 Nutrition Rx: Carbohydrates: Meal: 45-g lunch and dinner; 30g breakfast Snack: 15-30g Nutrition Diagnosis: Altered nutrition related lab value r/t GDM dx aeb recent OGTT Intervention: This participant was very receptive. Provided appropriate educational handouts. Discussed the following topics: Focused f/u to address dietary factors influencing post-prandial hyperglycemia and achievable solutions. Educated pt and spouse on natural vs. artificial vs. added sugars. Educated pt and spouse on role of fiber and protein on carbohydrate absorption and BG curves. Practiced label reading and did activity on added sugars Collaborated c pt and spouse on achievable and sustainable ways to optimize postprandial BGs. Talk with Dr. Meyers about continuous glucose monitor. Pt would benefit from CGM as she occasionally avoids testing BG when she knows it is outside of range, also due to insulin use in prior to 20w gestation. Goals: Pt will purchase sugar drink substitutes- Fairlife chocolate protein drink, Simply Lemonade Light to have in kitchen fridge. Pt will mix coffee with Fairlife for mocha substitute with only 4g CHO and 30g PRO. will move soda and juice to garage fridge for less convenient access. Pt will pair protein and fiber with all meals and snacks. Pt will use brown rice and quinoa once weekly in place of white rice. Pt will limit rice intake to 1c at a time and fill up on more meat or veg if hungry. Follow-up: in person RDN follow-up in [address] Registered Dietitian T: [phone] F: [phone] [email or web address] Thank you for this referral
[2022-10-08 20:39] LABS: AFP Value 35.3 ng/mL (.); Gest Age on Col Date 16.6 weeks (.); Gestational Age EDD (.); Insulin Dep Diabetes No (.); OSBR Risk 1IN 10000 (.); Results Report (.); Test Results *Screen Negative* (.)
== END ==
PROVIDERS: Family Provider Family Medicine; PCP Family Medicine; Referring Provider Obstetrics & Gynecology; Visit Provider Obstetrics & Gynecology
DX: O24.415 Gestational diabetes mellitus in pregnancy, controlled by oral hypoglycemic drugs (principal); Z3A.16 16 weeks gestation of pregnancy; Z71.3 Dietary counseling and surveillance
CPT/HCPCS: 36415; 82105; 97803

== ENCOUNTER → 2022-10-29 14:20 | Outpatient (CLI) | payer OTHER, MEDICAID, SELFPAY ==
--- NOTE | 2022-10-29 14:20 | DI.US.S_ITS ---
PROCEDURE: US OB >= 14 WEEKS FETUS INDICATIONS: 20 WEEK ANATOMY SCAN OUTSIDE/PRIOR DATING DATA: Last menstrual period (LMP): 06/22/2022. LMP-based estimated date of delivery (ALEYDA): 03/29/2023. First dating scan (date and location): 08/14/2022. Estimated date of delivery (ALEYDA) from first dating scan: 03/15/2023. The calculations are made using the sonographic ALEYDA of 03/15/2023. TECHNIQUE: Real-time scanning was performed of the fetus, with image documentation and biometric measurements. Endovaginal scanning: Not performed COMPARISON: [facility], , OB >= 14 WEEKS FETUS, 11/06/2021, 15:26. FINDINGS: General: A single living intrauterine gestation is present. Presentation: Vertex. Placenta: Placental position is posterior , with previa. Amniotic fluid index: 11.2 cm, normal range is 5-24 cm. Single deepest vertical pocket is 3.2 cm. heart rate: 145 beats per minute. Maternal cervical canal: 4.1 cm long. Normal lower limit is 2.5 cm. biometrics: Biparietal diameter: 4.7 centimeters, 20 weeks 2 days Head circumference: 8 teen 0.0 centimeters, 20 weeks 3 days Abdominal circumference: 15.2 centimeters, 20 weeks 3 days Femur length: 3.3 centimeters, 20 weeks 3 days Clinically estimated gestational age: 20 Weeks 3 days Composite gestational age from present scan: 20 weeks 3 days Estimated weight and percentile: 352 grams, 44th percentile Anatomic survey: Neuro: Ventricles are non-dilated at less than 10 mm. Cisterna magna is normal at 3-11 mm. Cerebellum is normal in size and morphology. Nuchal skin fold: Normal at less than 6 mm between 14-21 weeks gestational age. Face: Nose and lips, facial profile are normal. Spine: No evidence for spina bifida. Heart: 4-chambered heart is present, with normal ventricular outflow tracts. Diaphragm: Diaphragm is intact. Stomach: Left-sided stomach is present. Kidneys: No hydronephrosis. Normal is less than 5 mm in 2nd trimester, less than 7 mm in 3rd trimester. Cord: 3-vessel cord has orthotopic insertion. Bladder: Normal in size. Extremities: All 4 extremities identified. Other: Venous [place] of the placenta is present. IMPRESSION: Single living intrauterine at 20 weeks 3 days, ALEYDA 03/15/2023. Estimated weight of 252 grams, 44th percentile. Placenta previa. Otherwise, normal anatomy survey. We strive to produce accurate, complete, and clear reports of imaging services. To assist us in improving patient care, this report was composed using standard report templates and voice recognition software. Therefore, it may contain abnormal punctuation, insertions and/or omissions. Occasional wrong-word or sound-alike substitutions may occur. Though we review the report and make efforts to correct it, we do recommend that the report be read carefully in proper context to recognize any text inaccuracies. Dictated by: Mono Rod M.D. on 10/29/2022 at 17:11 Approved by: Mono Rod M.D. on 10/29/2022 at 17:13
== END ==
PROVIDERS: Family Provider Family Medicine; PCP Family Medicine; Referring Provider Obstetrics & Gynecology; Visit Provider Obstetrics & Gynecology
DX: O44.02 Complete placenta previa NOS or without hemorrhage, second trimester (principal); Z3A.20 20 weeks gestation of pregnancy
CPT/HCPCS: 76811

== ENCOUNTER → 2022-10-29 15:30 | Outpatient (CLI) | payer OTHER, MEDICAID, SELFPAY | PROVIDERS: Absent Provider Family Medicine; Family Provider Family Medicine; PCP Family Medicine; Referring Provider Obstetrics & Gynecology; Visit Provider Obstetrics & Gynecology | DX: O24.119 Pre-existing type 2 diabetes mellitus, in pregnancy, unspecified trimester (principal); Z71.3 Dietary counseling and surveillance | CPT/HCPCS: 95249 ==

== ENCOUNTER → 2022-12-15 16:45 | Outpatient (CLI) | payer OTHER, MEDICAID, SELFPAY ==
[2022-12-15 17:35] LABS: Hematocrit 36.4 % (36-46)
== END ==
PROVIDERS: Family Provider Family Medicine; PCP Family Medicine; Referring Provider Obstetrics & Gynecology; Visit Provider Obstetrics & Gynecology
DX: Z34.82 Encounter for supervision of other normal pregnancy, second trimester (principal); Z3A.26 26 weeks gestation of pregnancy
CPT/HCPCS: 36415; 85014; 85018

== ENCOUNTER → 2022-12-23 14:00 | Outpatient (CLI) | payer OTHER, MEDICAID, SELFPAY ==
--- NOTE | 2022-12-23 16:52 | DIAB.GDFU ---
Follow-up Gestational Diabetes Assessment Name: Anna Valderrama Date: 12/23/22 Time: 230-330p Dx: Diabetes in Provider: Luigi ALEYDA: 03/15/23 Weeks: 28 Anna presents for follow-up with spouse, Lencho. She is having a girl! Having consistent elevations fasting and postprandial. Attributes this to high carb intake (rice >2c, sometimes with bread, and lower sugar beverage >8oz in a sitting, also forgetting evening insulin dose at times). Endorses feeling overwhelmed and frustrated with blood sugars. Is well aware of hyperglycemia impact on /baby. States she thinks part of the problem is going too long without eating, resulting in large intake at meals. Has family nutrition questions as well on how to feed herself and her toddler daughter. Diet Recall: 11a: >2c rice, meat, veg, coffee with condensed milk, lower sugar juice >8oz (CHO 12g per 8oz) 2-3p: banana, nuts 8p: same as breakfast, sf soda or no soda 1am: sometimes snack Anthropometrics: Ht: 5' Wt: 159# 12/19/22 at OB Prepregnancy wt: 169# Physical Activity: No program Self-Monitoring Blood Glucose: Has a Dexcom G6. Reports a lot of issues with coordinating this rx effort between clinic, pharmacy, and insurance. Would prefer not to switch to G7 at this time. Reports problem with recent transmitter and sensor. Plans to call Dexcom for replacement. FBG 109-132; Postprandial B: 188-217 ; L: 108-127 (in goal) ; D: 156-175. Elevations occur with higher carb meals at breakfast and dinner. Diabetes Medications: Metformin 1000mg BID NPH 25u (has not yet increased from 20u) Lispro 10u, 7u, 10u Pertinent Labs: Last hgA1c 6.6 Nutrition Rx: Carbohydrates: Meal: 45-g lunch and dinner; 30g breakfast Snack: 15-30g Nutrition Diagnosis: Excessive CHO intake r/t stage of change barriers aeb pt report and diet recall Intervention: This participant was very receptive. Provided appropriate educational handouts. Discussed the following topics: Recent blood sugar results and impact of food and hormones Review of macronutrient recommendations during Coping skills and managing change realistically for her Family nutrition CGM issues and Dexcom contact info Carb recs and ways to mitigate large portions. Goals: Pt will purchase sugar drink substitutes- Suite[employer] chocolate protein drink, Simply Lemonade Light to have in kitchen fridge. Pt will mix coffee with Fairlife for mocha substitute- met will move soda and juice to garage fridge for less convenient access.- not discussed Pt will pair protein and fiber with all meals and snacks.- met Pt will use brown rice and quinoa once weekly in place of white rice.- not discussed Pt will limit rice intake to 1c at a time and fill up on more meat or veg if hungry.- not met Call Dexcom for replacement equipment- new Measure rice at meals- new Try zero sugar beverages vs reduced sugar- new Take insulin as rx'd- new Follow-up: TAMMI ROCHE follow-up in one week Judy Israel RDN, KALEY Certified Diabetes Care and Petroleum Engineering Teacher T: [phone] F: [phone] [email or web address] Thank you for this referral
== END ==
PROVIDERS: Family Provider Family Medicine; PCP Family Medicine; Referring Provider Obstetrics & Gynecology; Visit Provider Obstetrics & Gynecology
DX: O24.414 Gestational diabetes mellitus in pregnancy, insulin controlled (principal); Z3A.28 28 weeks gestation of pregnancy; Z71.3 Dietary counseling and surveillance
CPT/HCPCS: 97803

== ENCOUNTER → 2022-12-31 14:04 | Outpatient (CLI) | payer OTHER, MEDICAID, SELFPAY ==
--- NOTE | 2022-12-31 14:57 | DIAB.GDFU ---
Follow-up Gestational Diabetes Assessment Name: Anna Valderrama Date: 12/31/22 Time: 215-250p Dx: Diabetes in Provider: Luigi ALEYDA: 03/15/23 Weeks: 29 Anna presents for follow-up with spouse, Lencho. Difficulty sticking with finger sticks 4x per day. Transmitter for CGM still not working. Decided to go with new Rx for G7 with provider last visit, which this RD supports. Provider also increased NPH and lispro appropriately. Fastings improved, no pc readings for review. Will f/u in one week for BG review and update on G7. Reports reduced rice portions for most meals. Has not measured rice. seems to think she is eating smaller portions than she thinks. Drinking zero sugar lemonade now. Has referral to for DM care. Worried about traveling. Enc her to ask for telehealth visits if possible. Physical Activity: No program Self-Monitoring Blood Glucose: Recent FBG improved with most under 100 since increasing NPH. No pc readings last two days. Other readings pretty consistently elevated >140mg/dl. Date Pre Post Pre Post Pre Post HS 12/25 98 171 146 156 12/26 96 186 138 140 12/27 101 157 175 152 12/28 102 229 152 169 12/29 100 140 12/30 95 12/31 97 Diabetes Medications: Metformin 1000mg BID NPH 28u Lispro 14u, 10u, 14u Pertinent Labs: Last hgA1c 6.6 Intervention: This participant was very receptive. Provided appropriate educational handouts. Discussed the following topics: Recent blood sugar results and SMBG with finger sticks CGM troubleshooting Review of alerts on CGM Provided sample transmitter Nutrition review and beverage recs Goals: Call Dexcom for replacement equipment- d/c Measure rice at meals- not met Try zero sugar beverages vs reduced sugar- met Take insulin as rx'd- met Call/message RD next week for BG review/G7 update- new Measure rice portion at least 1x- cont Restart CGM- new Follow-up: TAMMI ROCHE follow-up in one week via phone or messaging. 1:1 visit in two weeks. Judy Israel RDN, KALEY Certified Diabetes Care and Documentation Billing Clerk T: [phone] F: [phone] [email or web address] Thank you for this referral
== END ==
PROVIDERS: Family Provider Family Medicine; PCP Family Medicine; Referring Provider Obstetrics & Gynecology; Visit Provider Obstetrics & Gynecology
DX: O24.414 Gestational diabetes mellitus in pregnancy, insulin controlled (principal); Z3A.29 29 weeks gestation of pregnancy; Z71.3 Dietary counseling and surveillance
CPT/HCPCS: G0108

== ENCOUNTER → 2023-01-16 13:02 | Outpatient (CLI) | payer OTHER, MEDICAID, SELFPAY ==
--- NOTE | 2023-01-20 17:26 | DIAB.GDFU ---
Follow-up Gestational Diabetes Assessment Name: Anna Valderrama Date: 01/16/23 Time: 110-210p Dx: Diabetes in Provider: Luigi ALEYDA: 03/15/23 Weeks: 31--32 Anna presents for follow-up with spouse, Lencho. Has met with OB team for Dm management via telehealth. Utilizing Dexcom G7. Has questions regarding baby aspirin for prevention of preeclampsia, HELLP syndrome questions, and hypoglycemia questions. States elevations in BG are r/t larger portions of CHO, including rice and ice cream. States lows occur when she goes too long without eating. States she has measured rice portions and keeping to 1-1.5c. BP good at home. Has questions regarding timing of NPH. Often takes around midnight before sleep. Fearful of taking NPH close to mealtime insulin d/t fear of lows. has increased her mealtime insulin and kept NPH the same at this time. Currently using syringes, not insulin pens. Physical Activity: No program Self-Monitoring Blood Glucose: 70% in goal of 70-140mg/dl, 29% elevated per CGm reports. Recent FBG often >95mg/dl, though range from 93-110mg/dl. Postprandial readings improved this week with most under 140mg/dl. last four days 88-150mg/dl. May benefit from increase in NPH. Diabetes Medications: Metformin 1000mg BID NPH 28u Lispro 16u, 12u, 18u Pertinent Labs: Last hgA1c 6.6 Intervention: This participant was very receptive. Provided appropriate educational handouts. Discussed the following topics: Recent blood sugar results and impact of food, meds and hormones Nutrition review and portions Treatment for lows and keeping glucose tabs on hand Enc further discussion of preeclampsia and HELLP syndrome with OB providers. We did review the placenta's role in hyperglycemia and how BG changes can be indicative of placental hormone changes/function. Meal/snack timing Goals: Call/message RD next week for BG review/G7 update- met Measure rice portion at least 1x- met Restart CGM- met Discuss NPH with [facility]- new Buy glucose tabs or lows-new Eat q3-4 hours- new ask for insulin pens- new Follow-up: TAMMI ROCHE follow-up in two weeks Judy Israel RDN, KALEY Certified Diabetes Care and Picture Framer T: [phone] F: [phone] [email or web address] Thank you for this referral
== END ==
PROVIDERS: Family Provider Family Medicine; PCP Family Medicine; Referring Provider Obstetrics & Gynecology; Visit Provider Obstetrics & Gynecology
DX: O24.414 Gestational diabetes mellitus in pregnancy, insulin controlled (principal); Z3A.31 31 weeks gestation of pregnancy; Z71.3 Dietary counseling and surveillance
CPT/HCPCS: G0108

== ENCOUNTER → 2023-01-16 14:14 | Outpatient (CLI) | payer OTHER, MEDICAID, SELFPAY ==
--- NOTE | 2023-01-16 14:15 | DI.US.S_ITS ---
PROCEDURE: US OB FOLLOW UP INDICATIONS: GROWTH AND PLACENTA FOLLOW UP OUTSIDE/PRIOR DATING DATA: Last menstrual period (LMP): 06/22/2022. LMP-based estimated date of delivery (ALEYDA): 03/29/2023. First dating scan (date and location): 08/24/2022. Estimated date of delivery (ALEYDA) from first dating scan: 03/15/2023. The calculations are made using the ultrasound ALEYDA of 03/15/2023. TECHNIQUE: Real-time scanning was performed of the fetus, with image documentation. COMPARISON: None. FINDINGS: A single living intrauterine gestation is present. Presentation: Cephalic. Placenta: Placental position is posterior, without previa. Amniotic fluid index: 11.2 cm, normal range is 5-24 cm. Single deepest vertical pocket is 5.7 cm. heart rate: 157 beats per minute. Maternal cervical canal: 5.5 cm long. Normal lower limit is 2.5 cm. Estimated gestational age from initial scan: 31 weeks 5 days. IMPRESSION: 1. Single live intrauterine with an estimated gestational age of 31 weeks 5 days. 2. Estimated weight 1831 g, 40th percentile. Dictated by: Remy Lucero M.D. on 01/16/2023 at 16:07 Approved by: Remy Lucero M.D. on 01/16/2023 at 16:11
== END ==
PROVIDERS: Family Provider Family Medicine; PCP Family Medicine; Referring Provider Physician Assistant Medical; Visit Provider Physician Assistant Medical
DX: O44.03 Complete placenta previa NOS or without hemorrhage, third trimester; O24.113 Pre-existing type 2 diabetes mellitus, in pregnancy, third trimester; Z3A.31 31 weeks gestation of pregnancy; Z71.3 Dietary counseling and surveillance
CPT/HCPCS: 76816; G0108

== ENCOUNTER → 2023-01-29 15:29 | Outpatient (CLI) | payer OTHER, MEDICAID, SELFPAY ==
--- NOTE | 2023-01-29 17:03 | DIAB.GDFU ---
Follow-up Gestational Diabetes Assessment Name: Anna Valderrama Date: 01/29/23 Time: 335-435p Dx: Diabetes in Provider: Luigi ALEYDA: 03/15/23 Weeks: 33-34 Anna presents for follow-up today. Dexcom reading frequent elevations. States no increase to NPH from [facility] specialist. Lispro has been increased. Endorses high carb intake. Anna has a h/o challenges with reduction in carb intake, ie pancake, syrup and condensed milk in coffee resulting in BG >200mg/dl recently. Often will go >4 hours before next meal, resulting in larger portions. Plans for Feb 26 c section at 37 weeks 2 days. Found a [employer] in [place] that offers vegetables she enjoys. Reports she may be able to reduce rice portion if she keeps these veggies around. Switched to pen needles vs syringes. Has questions regarding how much insulin is too much in . Physical Activity: No program. Considering gym after . Reports weather and inability to drive as barriers to activity. Self-Monitoring Blood Glucose: 61% in goal of 70-140mg/dl, 39% elevated per CGm reports. Increased hyperglycemia since last visit. Waking with BG consistently above 95mg/dl. After meals consistently above 140 mg/dl, often 160-210mg/dl. Diabetes Medications: Metformin 1000mg BID NPH 28u Lispro 18u, 14u, 20u Pertinent Labs: Last hgA1c 6.6 Intervention: This participant was very receptive. Provided appropriate educational handouts. 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
== END ==
PROVIDERS: Family Provider Family Medicine; PCP Family Medicine; Referring Provider Obstetrics & Gynecology; Visit Provider Obstetrics & Gynecology
DX: O24.414 Gestational diabetes mellitus in pregnancy, insulin controlled (principal); Z3A.33 33 weeks gestation of pregnancy; Z71.3 Dietary counseling and surveillance
CPT/HCPCS: G0108

== ENCOUNTER 2023-02-03 13:56 | Outpatient (CLI) | payer OTHER, MEDICAID, SELFPAY ==
--- NOTE | 2023-02-03 14:29 | P.TNLD_ITS ---
Visit Information Visit Information Date of evaluation: 02/03/23 Primary OB Provider: Buddy Meyers On-call OB Provider: Zonia Schmitt Reason for Evaluation: Yes non-stress test Comments/Additional reasons for admission: here for NST in setting of pregestational type 2 diabetes and hx of pre- eclampsia. [facility] Medical History Acne (~2011) Chicken pox Cough COVID-19 virus infection Diabetes (~2020) Disc prolapse (~2015) Frequent UTI (~2020) Irregular menstrual cycle (~2011) Low back problem Mumps Ovarian cyst (~2011) Painful menstrual periods (~2011) Polycystic ovarian syndrome Rhinosinusitis (~2010) Sinusitis Sleep apnea (~2017) UTI in Surgical History History of wisdom tooth extraction Previous section Family History Mother Hypertension Family/Other Cervical cancer Sister Thalassemia Sister Iron deficiency anemia Father Diabetes mellitus Asthma Brain tumor Grandfather Hypertension Stroke Grandmother Diabetes mellitus Hyperlipidemia Stroke Grandmother Stroke Social History marital status: number of children: 1 household members: spouse and children lives independently: Yes caregiver/support person: Yes housing: house pets and animals: Yes (Cats aware of toxoplasmosis) 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) occupational status: unemployed current occupational exposures/hazards: No abdi/baptist: Born again [employer] travel history: over 6 months ago seatbelt use: always water heater temp set < 120 deg: Yes working smoke detector in home: Yes fire extinguisher in home: Yes carbon monox detector in home: Yes firearms in home: No do you feel safe at home: Yes Smoking Status: Never smoker second hand exposure: No alcohol intake: former (occasionally when not ) substance use type: does not use during the past year weight has: remained stable well-balanced diet: daily or most days daily servings fruits/ve or more times/day caffeine: Yes (one cup coffee in AM) Type(s) of exercise: walking frequency: daily duration: 15-30 minutes/day Evaluation Evaluation Baseline heart rate: 145 Variability: Average (6-10) monitor accelerations: Present Monitor Decelerations: Absent Category of Tracing: Reactive Status: Category l Diagnosis, Plan/Disposition Plan/Disposition Plan: here for NST monitoring in setting of pregestational type 2 diabetes. NST reactive. Safe for discharge. OB Disposition: home
== END 2023-02-03 14:30 | disposition home or self-care (01) ==
LOC: LABOR 14:30 → OB 02-05 12:25
PROVIDERS: Family Provider Family Medicine; PCP Family Medicine; Referring Provider Student in an Organized Health Care Education/Training Program; Visit Provider Student in an Organized Health Care Education/Training Program
DX: O24.113 Pre-existing type 2 diabetes mellitus, in pregnancy, third trimester (principal); Z3A.34 34 weeks gestation of pregnancy
CPT/HCPCS: 59025; G0378; G0379

== ENCOUNTER → 2023-02-06 17:06 | Outpatient (CLI) | payer OTHER, MEDICAID, SELFPAY | PROVIDERS: Family Provider Family Medicine; PCP Family Medicine; Visit Provider Obstetrics & Gynecology | DX: R82.998 Other abnormal findings in urine (principal) | CPT/HCPCS: 87086 ==

== ENCOUNTER 2023-02-13 13:52 | Outpatient (CLI) | payer OTHER, MEDICAID, SELFPAY | END 2023-02-13 14:40 | disposition home or self-care (01) | LOC: LABOR 15:18 → OB 02-16 14:10 | PROVIDERS: Family Provider Family Medicine; PCP Family Medicine; Referring Provider Obstetrics & Gynecology; Visit Provider Obstetrics & Gynecology | DX: O24.113 Pre-existing type 2 diabetes mellitus, in pregnancy, third trimester (principal); Z3A.35 35 weeks gestation of pregnancy; Z79.4 Long term (current) use of insulin; O28.8 Other abnormal findings on antenatal screening of mother; R82.998 Other abnormal findings in urine; Z71.3 Dietary counseling and surveillance | CPT/HCPCS: 59025; 87086; G0378; G0108; G0379 ==

== ENCOUNTER → 2023-02-13 15:28 | Outpatient (CLI) | payer OTHER, MEDICAID, SELFPAY ==
--- NOTE | 2023-02-13 16:59 | DIAB.GDFU ---
Addendum entered by Judy Israel 02/13/23 17:14: Also encouraged visit. Anna reports difficulty with milk production last . Encouraged visit to discuss BF strategies, collection of colostrum after 37 weeks, and questions regarding supplements to increase milk. Provided her with contact info. Original Note: Follow-up Gestational Diabetes Assessment Name: Anna Valderrama Dx: Diabetes in Provider: Luigi ALEYDA: 03/15/23 Weeks: 35-36 Anna presents for follow-up today with spouse, Lencho. Reports increasing insulin since last visit, but reports sometimes taking lower dose HS NPH if having smaller carb portions at dinner. Discussed today the impact of NPH on FBG versus mealtime. States she took 35u last night and woke with in goal readings. [facility] also helping manage her BG, and encouraged increased NPH by 2u q 2-3 days until FBG in goal, which this RD supports. Also has rx'd morning NPH. Anna reports high carb intake with meals, often >1c rice. Has added more veggies to meals. Eating q 3-4 hours as discussed last visit. Getting sick of some protein snacks. Had small banana snack x2 and noticed hyperglycemia after. This RD does sense some hesitation in Anna with increasing insulin d/t fear of lows and potential impact on baby while taking higher insulin doses. We discussed impact of hyperglycemia and safety of insulin during . Also reviewed hypo treatment and titrating insulin safely. scheduled Feb 26 States this is her last . Physical Activity: No program Self-Monitoring Blood Glucose: Similar, though slight improved, BG as last visit. Best FBG was today after increasing NPH to 35u. States she would like to reduce back to 30u and follow [facility] titration schedule since adding more insulin during the day. Encouraged a very low threshold for increasing back to 35u prn, ie if FBG elevated tomorrow move to 33u HS. She agreed. Reports feeling shaky with BG of 81mg/dl today. Had juice and fruit, which resulted in elevation. Encouraged keeping juice tx for true lows <70 and eating a snack if above 70 with symptoms. Today: 37% elevated 63% in goal of 70-140mg/dl 0% low GMI 6.5% Last Visit: 39% elevated 61% in goal of 70-140mg/dl 0% low Diabetes Medications: Metformin 1000mg BID NPH 30-35u Lispro 18u, 14u, 20u (increasing to 22u, 16u, 24u) Pertinent Labs: Last hgA1c 6.6 Intervention: This participant was very receptive. Provided appropriate educational handouts. 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
== END ==
PROVIDERS: Family Provider Family Medicine; PCP Family Medicine; Referring Provider Obstetrics & Gynecology; Visit Provider Obstetrics & Gynecology
DX: O24.113 Pre-existing type 2 diabetes mellitus, in pregnancy, third trimester (principal); Z3A.35 35 weeks gestation of pregnancy; Z71.3 Dietary counseling and surveillance; Z79.4 Long term (current) use of insulin
CPT/HCPCS: G0108

== ENCOUNTER → 2023-02-13 15:48 | Outpatient (CLI) | payer OTHER, MEDICAID, SELFPAY | PROVIDERS: Family Provider Family Medicine; PCP Family Medicine; Visit Provider Obstetrics & Gynecology | DX: R82.998 Other abnormal findings in urine (principal) | CPT/HCPCS: 87086 ==

== ENCOUNTER 2023-02-17 13:27 | Outpatient (CLI) | payer OTHER, MEDICAID, SELFPAY ==
--- NOTE | 2023-02-17 14:34 | P.TNLD_ITS ---
Visit Information Visit Information Date of evaluation: 02/17/23 Primary OB Provider: Buddy Meyers Comments/Additional reasons for admission: 37yo at 36w2d here for NST for DM on insulin. Pt is feeling her baby move regularly. No LOF, vaginal bleeding, contractions. [facility] Medical History Acne (~2011) Chicken pox Cough COVID-19 virus infection Diabetes (~2020) Disc prolapse (~2015) Frequent UTI (~2020) Irregular menstrual cycle (~2011) Low back problem Mumps Ovarian cyst (~2011) Painful menstrual periods (~2011) Polycystic ovarian syndrome Rhinosinusitis (~2010) Sinusitis Sleep apnea (~2017) UTI in Surgical History History of wisdom tooth extraction Previous section Family History Mother Hypertension Family/Other Cervical cancer Sister Thalassemia Sister Iron deficiency anemia Father Diabetes mellitus Asthma Brain tumor Grandfather Hypertension Stroke Grandmother Diabetes mellitus Hyperlipidemia Stroke Grandmother Stroke Social History marital status: number of children: 1 household members: spouse and children lives independently: Yes caregiver/support person: Yes housing: house pets and animals: Yes (Cats aware of toxoplasmosis) 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) occupational status: unemployed current occupational exposures/hazards: No abdi/advent: Born again [employer] travel history: over 6 months ago seatbelt use: always water heater temp set < 120 deg: Yes working smoke detector in home: Yes fire extinguisher in home: Yes carbon monox detector in home: Yes firearms in home: No do you feel safe at home: Yes Smoking Status: Never smoker second hand exposure: No alcohol intake: former (occasionally when not ) substance use type: does not use during the past year weight has: remained stable well-balanced diet: daily or most days daily servings fruits/ve or more times/day caffeine: Yes (one cup coffee in AM) Type(s) of exercise: walking frequency: daily duration: 15-30 minutes/day Evaluation Evaluation Baseline heart rate: 140 Variability: Moderate (11-25) monitor accelerations: Present Monitor Decelerations: Absent Category of Tracing: Reactive Diagnosis, Plan/Disposition Final Diagnosis (1) Type 2 diabetes mellitus during : Status: Acute Plan/Disposition Plan: 37yo at 36w2d here for NST for DM on insulin. NST reactive. Continue testing. OB Disposition: home
== END 2023-02-17 14:35 | disposition home or self-care (01) ==
LOC: LABOR 13:56 → OB 02-19 16:23
PROVIDERS: Family Provider Family Medicine; PCP Family Medicine; Referring Provider Obstetrics & Gynecology; Visit Provider Obstetrics & Gynecology
DX: O24.113 Pre-existing type 2 diabetes mellitus, in pregnancy, third trimester (principal); Z3A.36 36 weeks gestation of pregnancy; Z79.4 Long term (current) use of insulin
CPT/HCPCS: 59025; G0378; G0379

== ENCOUNTER → 2023-02-19 10:10 | Outpatient (CLI) | payer OTHER, MEDICAID, SELFPAY ==
[2023-02-19 15:05] LABS: Strep Grp B PCR NEG for Grp B Strep
== END ==
PROVIDERS: Family Provider Family Medicine; PCP Family Medicine; Visit Provider Specialist
DX: Z34.83 Encounter for supervision of other normal pregnancy, third trimester (principal); Z3A.36 36 weeks gestation of pregnancy
CPT/HCPCS: 87653

== ENCOUNTER 2023-02-19 10:22 | Outpatient (CLI) | payer OTHER, MEDICAID, SELFPAY ==
--- NOTE | 2023-02-19 10:52 | P.TNLD_ITS ---
Visit Information Visit Information Date of evaluation: 02/19/23 Primary OB Provider: Buddy Meyers On-call OB Provider: Wanda Garner Reason for Evaluation: Yes non-stress test non-stress test reason: diabetes PFSH Medical History Acne (~2011) Chicken pox Cough COVID-19 virus infection Diabetes (~2020) Disc prolapse (~2015) Frequent UTI (~2020) Irregular menstrual cycle (~2011) Low back problem Mumps Ovarian cyst (~2011) Painful menstrual periods (~2011) Polycystic ovarian syndrome Rhinosinusitis (~2010) Sinusitis Sleep apnea (~2017) UTI in Surgical History History of wisdom tooth extraction Previous section Family History Mother Hypertension Family/Other Cervical cancer Sister Thalassemia Sister Iron deficiency anemia Father Diabetes mellitus Asthma Brain tumor Grandfather Hypertension Stroke Grandmother Diabetes mellitus Hyperlipidemia Stroke Grandmother Stroke Social History marital status: number of children: 1 household members: spouse and children lives independently: Yes caregiver/support person: Yes housing: house pets and animals: Yes (Cats aware of toxoplasmosis) 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) occupational status: unemployed current occupational exposures/hazards: No abdi/jehovah's witness: Born again Zoroastrian travel history: over 6 months ago seatbelt use: always water heater temp set < 120 deg: Yes working smoke detector in home: Yes fire extinguisher in home: Yes carbon monox detector in home: Yes firearms in home: No do you feel safe at home: Yes Smoking Status: Never smoker second hand exposure: No alcohol intake: former (occasionally when not ) substance use type: does not use during the past year weight has: remained stable well-balanced diet: daily or most days daily servings fruits/ve or more times/day caffeine: Yes (one cup coffee in AM) Type(s) of exercise: walking frequency: daily duration: 15-30 minutes/day Evaluation Evaluation Baseline heart rate: 130 Variability: Moderate (11-25) monitor accelerations: Present Monitor Decelerations: Absent Category of Tracing: Reactive Status: Category l Diagnosis, Plan/Disposition Final Diagnosis (1) History of delivery, antepartum: Status: Acute (2) Type 2 diabetes mellitus during : Status: Acute (3) Advanced maternal age in multigravida: Status: Acute Plan/Disposition Plan: Reactive nonstress test. Patient is scheduled for section in one-week OB Disposition: home
== END 2023-02-19 10:58 | disposition home or self-care (01) ==
LOC: LABOR 10:24 → OB 02-24 11:22
PROVIDERS: Family Provider Family Medicine; PCP Family Medicine; Referring Provider Obstetrics & Gynecology; Visit Provider Obstetrics & Gynecology
DX: O24.113 Pre-existing type 2 diabetes mellitus, in pregnancy, third trimester (principal); O09.523 Supervision of elderly multigravida, third trimester; Z3A.36 36 weeks gestation of pregnancy; Z79.4 Long term (current) use of insulin; Z34.83 Encounter for supervision of other normal pregnancy, third trimester
CPT/HCPCS: 59025; 87653; G0378; G0379

== ENCOUNTER 2023-02-24 12:45 | Outpatient (CLI) | payer OTHER, MEDICAID, SELFPAY | END 2023-02-24 13:30 | disposition home or self-care (01) | LOC: LABOR 13:25 → OB 02-26 08:01 | PROVIDERS: Family Provider Family Medicine; PCP Family Medicine; Referring Provider Obstetrics & Gynecology; Visit Provider Obstetrics & Gynecology | DX: O24.113 Pre-existing type 2 diabetes mellitus, in pregnancy, third trimester (principal); O47.1 False labor at or after 37 completed weeks of gestation; Z3A.37 37 weeks gestation of pregnancy | CPT/HCPCS: 59025; G0378; G0379 ==

== ENCOUNTER 2023-02-26 05:38 | Inpatient (IN) | payer OTHER, MEDICAID, SELFPAY ==
--- NOTE | 2023-02-26 | PATH_ITS ---
[facility] Accession Number: [id number] No. of containers..01 Tissue . 01 Material submitted: . fallopian tube - BILATERAL FALLOPIAN TUBES . 01 Diagnosis: A. Bilateral Fallopian Tubes, Bilateral Salpingectomy: Cross sections of bilateral fallopian tubes with prominent congestion and edema. No evidence of dysplasia or malignancy. MRV 03/04/2023 0516 Local . 01 Electronically signed: . Anusha Crowder MD, Pathologist NPI- [id number] . 01 Gross description: . The specimen is received in formalin and labeled with the patient's name, , and bilateral fallopian tubes, and consists of two unoriented, fimbriated fallopian tubes measuring 9.4 x 0.8 cm and 9.5 x 0.9 cm respectively. Both tubes have violaceous, smooth serosa with no cystic structures identified. Sectioning reveals unremarkable stellate lumens. Mixing Supervisor sections to include a perpendicular section of fimbriae and cross sections are submitted as follows: A1: Longer fallopian tube. A2: Mentor fallopian tube. ([id number]) /FRR 02/28/2023 1632 Local . 01 Pathologist provided ICD-10: Z30.2 . 01 CPT . 724751 Specimen Comment: A courtesy copy of this report has been sent to [phone] Performed at: 01 [facility] [address] [place] [address], [place], [place] [id number] MD Jeronimo Dee MD Phone: [phone]
[2023-02-26 05:50] VITALS: BP 110/71
[2023-02-26 06:42] LABS: Add Manual Diff / Slide Review NO; Basophils Absolute Auto 0 /uL (0-100); Basophils Percent Auto 0.3 % (0-2); Eosinophils Absolute Auto 200 /uL (0-450); Eosinophils Percent Auto 1.7 % (2-4); Hematocrit 38.9 % (36-46); Hemoglobin 12.4 g/dL (12.0-16.0); Lymphocytes Absolute Auto 1900 /uL (1100-4500); Lymphocytes Percent Auto 19.2 % (25-40); Mean Corpuscular Hemoglobin 26.6 PG (26-34); Monocytes Absolute Auto 900 /uL (0-900); Monocytes Percent Auto 8.9 % (3-14); Neutrophils Absolute Auto 7000 /uL (1500-7000); Neutrophils Percent Auto 69.9 % (50-75); Platelet Count 173 X10^3/uL (150-400); Red Blood Cell Count 4.68 X10^6/uL (4.0-5.2); Red Cell Distribution Width 15.6 % (11.6-14.8); White Blood Cell Count 9.9 X10^3/uL (4.5-11.0)
[2023-02-26] MEDS: LACTATED RINGERS 1,000 ML 999 ML IV ×2 (07:28→09:33)
[2023-02-26] MEDS: CITRIC ACID/SODIUM CITRATE 15 ML SOLUTION 30 ML PO (07:32)
--- NOTE | 2023-02-26 07:32 | P.HPOB_ITS ---
OB HPI Date/Time Date of admission: 02/26/23 Date Patient Seen: 02/26/23 Time Patient Seen: 07:32 History of Present Condition Chief complaint: Repeat w/goldy Salpingectomy : 2 Para: 1 Estimated Date of Delivery: 03/15/23 Estimated Gestational Age (weeks): 37+4 Narrative: Anna Valderrama is a 37 year old admitted now at 37+ 4 weeks gestational age for repeat section and bilateral salpingectomy. course has been complicated by pre gestational type 2 diabetes which has been managed with split dose NPH and lispro resulting in excellent control and normal growth. In addition the patient is advanced maternal age with normal genetic testing. Patient had a history of preeclampsia with prior delivery but has had normal pressures through the course of this . Patient expresses a desire for permanent sterilization and will be performing bilateral salpingectomy to achieve that objective. GBS is negative. Indications Indication for induction OB: other (Pre gestational type 2 diabetes) Operative indications ( section): previous uterine surgery History of Present care: good care Dating criteria: LMP confirmed by 1st trimester US Obstetrical complications: other (Pre gestational diabetes) Preadmission Labs Blood type: O (+) positive -: Antibody screen: negative, GBS status: negative, HBsAG: negative, HIV: negative and RPR/VDLR: negative -: Chlamydia screen: not detected and Gonorrhea screen: not detected -: Rubella: immune and Varicella: immune HCT: 38.9 HCAB: negative PAP: Normal Quad screen: Normal Cell-free DNA: Low risk female Evaluation Evaluation Baseline heart rate: 145 Variability: Moderate (11-25) monitor accelerations: Present Monitor Decelerations: Absent Category of Tracing: Reactive Status: Category l PFSH Medical History Acne (~2011) Chicken pox Cough COVID-19 virus infection Diabetes (~2020) Disc prolapse (~2015) Frequent UTI (~2020) Irregular menstrual cycle (~2011) Low back problem Mumps Ovarian cyst (~2011) Painful menstrual periods (~2011) Polycystic ovarian syndrome Rhinosinusitis (~2010) Sinusitis Sleep apnea (~2017) UTI in Surgical History History of wisdom tooth extraction Previous section Family History Mother Hypertension Family/Other Cervical cancer Sister Thalassemia Sister Iron deficiency anemia Father Diabetes mellitus Asthma Brain tumor Grandfather Hypertension Stroke Grandmother Diabetes mellitus Hyperlipidemia Stroke Grandmother Stroke Social History marital status: number of children: 1 household members: spouse and children lives independently: Yes caregiver/support person: Yes housing: house pets and animals: Yes (Cats aware of toxoplasmosis) 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) occupational status: unemployed current occupational exposures/hazards: No abdi/gnosticism: Born again Sabianist travel history: over 6 months ago seatbelt use: always water heater temp set < 120 deg: Yes working smoke detector in home: Yes fire extinguisher in home: Yes carbon monox detector in home: Yes firearms in home: No do you feel safe at home: Yes Smoking Status: Never smoker second hand exposure: No alcohol intake: former (occasionally when not ) substance use type: does not use during the past year weight has: remained stable well-balanced diet: daily or most days daily servings fruits/ve or more times/day caffeine: Yes (one cup coffee in AM) Type(s) of exercise: walking frequency: daily duration: 15-30 minutes/day Meds Home Medications and Allergies Home Medications Medication Instructions Recorded Confirmed Type acetaminophen 325 mg tablet 650 mg (2 x 325 mg) PO Q6H PRN 11/18/21 02/19/23 Rx Fever/Mild Pain (1-3) #7 tabs metformin 1,000 mg tablet 1,000 mg PO BIDWMEAL #180 tabs 05/14/22 02/19/23 Rx labetalol 100 mg tablet 100 mg PO BID for blood pressure 09/23/22 02/19/23 Rx #60 tabs nystatin 100,000 unit/gram topical 1 applic topical BID #60 grams 10/02/22 02/19/23 Rx powder insulin syringe-needle U-100 0.5 #200 ea 10/17/22 02/19/23 Rx mL 29 gauge x 1/2 (BD Insulin Syringe) blood-glucose meter,continuous #1 ea 10/22/22 02/19/23 Rx blood-glucose sensor (Dexcom G6 #3 ea 10/22/22 02/19/23 Rx Sensor device) lancets #120 ea 10/22/22 02/19/23 Rx blood-glucose transmitter (Dexcom #1 ea 11/21/22 02/19/23 Rx G6 Transmitter device) prenat.vits,tal,jdf-tdxe-pmpzs 1 tab PO DAILY #60 tabs 11/21/22 02/19/23 Rx blood-glucose meter,continuous #1 ea 12/29/22 02/19/23 Rx (Dexcom G7 Ship'S Engineer) blood-glucose sensor (Dexcom G7 #1 ea 01/20/23 02/19/23 Rx Sensor device) insulin NPH isoph U-100 human 100 28 unit (0.28 mL) SUBCUT QPM #15 mL 01/20/23 02/19/23 Rx unit/mL (3 mL) subcutaneous pen (Humulin N NPH U-100 Insulin KwikPen) metformin 1,000 mg tablet 1,000 mg PO BID 01/20/23 02/19/23 History fluconazole 150 mg tablet 150 mg PO Q3D 2 doses #2 tabs 01/27/23 02/19/23 Rx nystatin-triamcinolone 100,000 1 applic topical BID PRN External 01/27/23 02/19/23 Rx unit/gram-0.1 % topical ointment itching #30 grams hydrocortisone 2.5 % topical cream 1 applic IN BID-QID PRN 02/17/23 02/19/23 Rx with perineal applicator hemorrhoids #30 grams (Anusol-HC) Allergies Allergy/AdvReac Type Severity Reaction Status Date / Time No Known Drug Allergies Allergy Verified 02/19/23 09:46 Review of Systems Review of Systems Narrative: Problem-specific ROS positives included in HPI OB Exam HENMT Head: normal to inspection, normocephalic and atraumatic Eyes General: appearance normal, both eyes and all related structures Resp Effort & Inspection: normal respiratory effort and able to speak in complete sentences Auscultation: clear to auscultation bilaterally Cardio Rate: regular rate Rhythm: regular rhythm Heart Sounds: S1 normal, S2 normal and no murmurs Extremities Lower extremity: Yes normal to inspection GI Inspection: normal to inspection Palpation: Yes soft and Yes no hepatosplenomegaly Uterus Location (Fundal Height): 38 Presentation: vertex Estimated Weight (lbs): 7 Objective Labs 02/26/23 06:15 Labs: Laboratory Results - last 24 hr 02/26/23 06:15 WBC 9.9 RBC 4.68 Hgb 12.4 Hct 38.9 MCV 83.0 MCH 26.6 MCHC 32.0 RDW 15.6 H Plt Count 173 Neut % (Auto) 69.9 Lymph % (Auto) 19.2 L [place] % (Auto) 8.9 Eos % (Auto) 1.7 L Baso % (Auto) 0.3 Neut # (Auto) 7000 Lymph # (Auto) 1900 [place] # (Auto) 900 Eos # (Auto) 200 Baso # (Auto) 0 Blood Type O Positive Antibody Screen Negative Assessment and Plan Assessment and Plan Assessment and Plan narrative: ASSESSMENT 1. Intrauterine , [place], 37+ 4 weeks gestational age 2. Prior section 3. Pre gestational type 2 diabetes 4. Advanced maternal age 5. Request for sterilization PLAN 1. Admit for repeat section with bilateral salpingectomy 2. See admission orders
--- NOTE | 2023-02-26 07:46 | PM.PREOP ---
Pre-operative Note COVID-19 COVID-19 status: Not tested Interval Note History & Physical reviewed/Exam performed by Physician: Yes Changes to H&P: No
[2023-02-26] MEDS: CEFAZOLIN 2 GM/100 ML PREMIX 100 ML IV (08:15)
--- NOTE | 2023-02-26 08:50 | SUR.OPER ---
Supine on Padded OR bed, head on pillow, safety belt at thigh, arms secured on padded arm boards at <90 degrees abduction. Bump under right buttock. gel pad to heels, and another gel pad between urinary catheter tubing and patients posterior upper leg, tape over blanket to lower legs.
--- NOTE | 2023-02-26 09:04 | SUR.OPER ---
Viable baby girl delivered at 0836. Placenta and cord blood tubes X2 given to L&D RN.
[2023-02-26 09:37] VITALS: BP 103/71; PULSE 81; RESP 22; TEMP 36.8; O2SAT 100
[2023-02-26 09:42] VITALS: BP 104/69; PULSE 70; RESP 16; TEMP 36.8; O2SAT 100
[2023-02-26 09:47] VITALS: BP 102/68; PULSE 69; RESP 21; TEMP 36.7; O2SAT 100
[2023-02-26 09:52] VITALS: BP 101/67; PULSE 73; RESP 16; O2SAT 97
[2023-02-26 09:57] VITALS: BP 109/73; PULSE 72; RESP 16; O2SAT 100
--- NOTE | 2023-02-26 10:00 | P.OP_ITS ---
Operative Date/Time/Diagnoses Date of procedure: 02/26/23 Time of procedure: 08:00 Pre-op diagnosis: Intrauterine gestation, miner, 37+ 4 weeks EGA Previous section x 1 Pre gestational diabetes mellitus Advanced maternal age Request for sterilization Post-op diagnosis: same Procedure & Clinicians Procedure: Repeat section (low transverse cervical) Bilateral salpingectomy Same procedure as scheduled: Yes Indications: Anna Valderrama is a 37 year old admitted now at 37+ 4 weeks gestational age for repeat section and bilateral salpingectomy. course has been complicated by pre gestational type 2 diabetes which has been managed with split dose NPH and lispro resulting in excellent control and normal growth. In addition the patient is advanced maternal age with normal genetic testing. Patient had a history of preeclampsia with prior delivery but has had normal pressures through the course of this . Patient expresses a desire for permanent sterilization and will be performing bilateral salpingectomy to achieve that objective. GBS is negative. Surgeon: Buddy Meyers Precision Lens Centerer And Edger: Wanda Garner Reason for Precision Lens Centerer And Edger: Precision Lens Centerer And Edger required for the safe, effective, and timely completion of this surgery. Anesthesia Type: Spinal Operative Notes Findings: Viable female, BW 3835 gms, Apgars 9/9. Normal gravid anatomy. Closure Type: primary Specimen(s): cord blood Intraoperative meds administered: Ketorolac and Pitocin Applied: Catheter Estimated Blood Loss (mL): 800 Blood products transfused: none Procedure in detail: With her informed written consent, the patient was taken to the operating room and placed in the supine position for a repeat section procedure, for the indication(s) above. The abdomen was prepped and draped in the usual manner for section and a pre-surgical timeout was taken per [facility] OR protocol. Once effective anesthesia was confirmed, a 15 cm transverse Pfannenstiel incision was made in the skin and taken down through the subcutaneous tissues to the deep fascia. The deep fascia was incised transversely, the rectus abdominal eyes bluntly and sharply, and the peritoneal cavity entered without difficulty. The lower uterine segment was visualized and the position/presentation palpated. A transverse incision at or above the vesicouterine reflection was made with Metzenbaum scissors and transverse hysterotomy performed near the midline. Amniotomy revealed clear fluid. The incision was extended bilaterally with digital traction and the was delivered with vacuum assist from the vertex presentation. The infant was vigorous and cord clamping delayed for 60 seconds. The placenta was d elivered intact using gentle cord traction and fundal massage.The uterine cavity was then cleared of any clot/debris first with a sloppy wet lap tape followed by a dry lap tape. Ring forceps were then applied to the angles and the midline of the incised DARLENE. A primary closure of the uterus was then accomplished with #1 CCGS in a running interlocking stitch followed by a 2nd layer of #1 CCGS in a r unning interlocking imbricating stitch. No additional sutures were required to achieve complete hemostasis. Attention was then turned to the right adnexa. The distal fallopian tube was elevated with a [place] clamp using LigaSure bipolar device, the fimbria varicose was coagulated and divided with dissection of the mesosalpinx coagulated divided across to the cornua which was coagulated and divided also with LigaSure. The right fallopian tube was excised and submitted as pathologic specimen. Attention was then turned to the left adnexa with the fimbria [place] coagulated and divided with the LigaSure device followed by dissection across the mesosalpinx using the LigaSure device to the cornua where the proximal tube was coagulated and divided. The left fallopian tube was then removed and submitted with the right fallopian tube is an aggregate specimen. Once pelvic hemostasis was assured, the bladder flap and anterior peritoneum were closed with a running 2-0 Vicryl suture and the fascia closed with #1 Vicryl in a running stitch initiated at both angles and tying separately near the midline. The subcutaneous tissues were reapproximated with 2-0 plain catgut suture using inverted interrupted stitches. The skin edges were then brought together with 4-0 Monocryl in a subcuticular closure and the incision was reinforced with 1 Steri-Strips. An appropriate compression dressi ng was applied and the patient transferred to PACU for recovery and subsequent transfer to the Center for recuperation. Complications: none Baby 1: Infant Gender: Female Presentation: vertex Position: Left Occiput Anterior Placental Delivery Description: Spontaneous Cord Vessel Description: 3 Vessels score (1 min): 9 score (5 min): 9 weight: 8 lb 7.276 oz Post-operative Condition: stable Disposition: PACU Aftercare: routine postop
[2023-02-26] MEDS: MORPHINE 2 MG/ML INJ IV (11:48)
[2023-02-26] MEDS: diphenhydrAMINE 25 MG TABLET PO ×2 (12:41→22:14)
[2023-02-26] MEDS: KETOROLAC 30 MG/ML VIAL IV ×2 (14:19→20:30)
[2023-02-26] MEDS: METFORMIN HCL 500 MG TABLET 1000 MG PO (17:40)
[2023-02-26] MEDS: ACETAMINOPHEN 325 MG TABLET 650 MG PO (20:30)
[2023-02-26] MEDS: DOCUSATE 100 MG CAPSULE PO (20:31)
[2023-02-27] MEDS: KETOROLAC 30 MG/ML VIAL IV (03:10)
[2023-02-27] MEDS: ACETAMINOPHEN 325 MG TABLET 650 MG PO ×3 (03:11→22:48)
[2023-02-27 06:31] LABS: Add Manual Diff / Slide Review NO; Basophils Absolute Auto 100 /uL (0-100); Basophils Percent Auto 0.5 % (0-2); Eosinophils Absolute Auto 300 /uL (0-450); Hemoglobin 11.1 g/dL (12.0-16.0); Lymphocytes Absolute Auto 1700 /uL (1100-4500); Lymphocytes Percent Auto 13.6 % (25-40); Mean Corpuscular HGB Conc 32.6 % (30-36); Mean Corpuscular Hemoglobin 26.3 PG (26-34); Mean Corpuscular Volume 80.6 fL (80-100); Monocytes Absolute Auto 1200 /uL (0-900); Monocytes Percent Auto 9.3 % (3-14); Neutrophils Absolute Auto 9600 /uL (1500-7000); Neutrophils Percent Auto 74.6 % (50-75); Platelet Count 159 X10^3/uL (150-400); Red Blood Cell Count 4.22 X10^6/uL (4.0-5.2); Red Cell Distribution Width 15.4 % (11.6-14.8); White Blood Cell Count 12.9 X10^3/uL (4.5-11.0)
[2023-02-27] MEDS: METFORMIN HCL 500 MG TABLET 1000 MG PO ×2 (08:13→19:51)
[2023-02-27] MEDS: IBUPROFEN 600 MG TABLET PO ×2 (09:09→22:47)
[2023-02-27] MEDS: DOCUSATE 100 MG CAPSULE PO ×2 (09:10→22:47)
[2023-02-27] MEDS: PRENATAL VIT,CALC/IRON/FOLIC 1 TABLET 1 TAB PO (09:11)
[2023-02-27 10:22] VITALS: BP 111/83; PULSE 93; RESP 16; TEMP 37.1
--- NOTE | 2023-02-27 11:08 | PM.OBPN.1 ---
Subjective - OB Subjective Patient comments: no complaints, pain well controlled, incisional pain, tolerating diet and flatus present baby status: doing well, nursing well and bottle feeding well [place] feeding status: breast and bottle feeding Narrative: Doing well overnight. Minimal lochia. Date Patient Seen: 02/27/23 Time Patient Seen: 11:08 Exam Vital Signs (past 8 hours): Oxygen Delivery Method Room Air Const General: cooperative and comfortable Nutritional Appearance: average body habitus Orientation: alert and oriented x3 HENMT Head: normal to inspection, atraumatic and abrasion Ears: hearing grossly normal bilaterally Face and sinus: face symmetric Eyes General: appearance normal, both eyes and all related structures Conjunctivae: conjunctivae normal Sclera: sclerae normal EOM: EOM intact bilaterally Neck Neck: normal visual inspection Resp Effort & Inspection: normal respiratory effort and able to speak in complete sentences Auscultation: clear to auscultation bilaterally Cardio Rate: regular rate Rhythm: regular rhythm Heart Sounds: S1 normal, S2 normal and no murmurs GI Inspection: normal to inspection and incision (Surgical compression dressing clean and dry) Palpation: soft, no hepatosplenomegaly and tender (Mild, diffuse postsurgical tenderness) Auscultation: normal bowel sounds External Female Exam: other (No significant bleeding noted) Extrem General: no calf tenderness Psych Appearance: grossly normal Mental Status: mental status grossly normal Speech and Movement: speech and movement normal Mood: congruent mood Affect: normal affect Attitude: cooperative Thought Process: normal Thought Content: normal Judgment: judgment good Objective Labs 02/27/23 06:21 Labs: Laboratory Results - last 24 hr 02/27/23 06:21 WBC 12.9 H RBC 4.22 Hgb 11.1 L Hct 34.0 L MCV 80.6 MCH 26.3 MCHC 32.6 RDW 15.4 H Plt Count 159 Neut % (Auto) 74.6 Lymph % (Auto) 13.6 L [place] % (Auto) 9.3 Eos % (Auto) 2.0 Baso % (Auto) 0.5 Neut # (Auto) 9600 H Lymph # (Auto) 1700 [place] # (Auto) 1200 H Eos # (Auto) 300 Baso # (Auto) 100 Assessment & Plan Plan day: 1 plan OB: routine postop care Comments: Anticipate discharge in the AM Time Spent With Patient Time: Total time spent is greater than 50% in coordination of care (as documented) at patient's floor/unit and/or counseling patient: Time with patient: 15-24 minutes
[2023-02-28] MEDS: OXYCODONE IR 5 MG TABLET PO ×2 (00:28→11:19)
[2023-02-28] MEDS: IBUPROFEN 600 MG TABLET PO ×2 (06:05→12:01)
[2023-02-28] MEDS: ACETAMINOPHEN 325 MG TABLET 650 MG PO ×3 (06:05→12:58)
[2023-02-28] MEDS: DOCUSATE 100 MG CAPSULE PO (08:49)
[2023-02-28] MEDS: METFORMIN HCL 500 MG TABLET 1000 MG PO (08:49)
[2023-02-28] MEDS: PRENATAL VIT,CALC/IRON/FOLIC 1 TABLET 1 TAB PO (08:49)
--- NOTE | 2023-02-28 09:24 | PM.OBDS.1 ---
Discharge Providers Provider Date of admission: 02/26/23 05:38 Discharge Date: 02/28/23 Primary care physician: Roderick Saldaña MD Consults: 02/26/23 10:22 Consult to Wrinkle Chaser Routine Comment: Discharge provider: Buddy Meyers MD Summary Hospital Course Date Patient Seen: 02/28/23 Time Patient Seen: 09:26 Diagnoses: Intrauteine gestation, 37+4 wks EGA, delivered by repeat section Prior x 1 Pregestational Type 2 diabetes Advanced maternal age Request for sterilization Hospital Course: The patient was admitted on the morning of 02/26/2023 and underwent a routine, uneventful repeat section with bilateral salpingectomy. Full details of the procedure well summarized on my operative note of that date. Following delivery both mother and baby have done well with the mother experiencing prompt return of bowel and bladder function, she is ambulating independently, tolerating a regular diet, and her pain is well relieved with oral pain medications. She will be discharged at this time to home in an afebrile normotensive condition after counseling regarding precautionary symptoms, limitations of activity, medications, and plans for follow-up which will be in 1 week for an incision check. Discharge medications will include resumption of her preadmission medications with reduction of her NPH and lispro to 50% of her pre delivery dosing and close observe oz of her blood sugars at home. She will be using wqft-rfe-jovplmc Tylenol and ibuprofen for pain relief. Peripartum Data Infant Delivery Method: Section Laceration Description: None Episiotomy description: None Procedures: Spinal block anesthetic Repeat section (low transverse cervical) Bilateral salpingectomy complications: none 1: Gender: Female Disposition of : home Status at Discharge Cognitive/behavioral status at discharge: oriented Functional status at discharge: independent ambulation Overall status at discharge: patient is progressing back to baseline Time Spent with Patient Time attestation: Total time spent providing and/or coordinating discharge services: Time spent: Less than 30 minutes Objective Labs 02/27/23 06:21 Exam Vital Signs (past 8 hours): Oxygen Delivery Method Room Air Const General: cooperative and comfortable Nutritional Appearance: average body habitus Orientation: alert and oriented x3 HENMT Head: normal to inspection, atraumatic and abrasion Ears: hearing grossly normal bilaterally Face and sinus: face symmetric Eyes General: appearance normal, both eyes and all related structures Conjunctivae: conjunctivae normal Sclera: sclerae normal EOM: EOM intact bilaterally Neck Neck: normal visual inspection Resp Effort & Inspection: normal respiratory effort and able to speak in complete sentences Auscultation: clear to auscultation bilaterally Cardio Rate: regular rate Rhythm: regular rhythm Heart Sounds: S1 normal, S2 normal and no murmurs GI Inspection: normal to inspection and incision (Surgical dressing clean and dry) Palpation: soft, no hepatosplenomegaly and tender (Mild, diffuse postsurgical tenderness) Auscultation: normal bowel sounds External Female Exam: other (No significant bleeding noted) Extrem General: no calf tenderness Psych Appearance: grossly normal Mental Status: mental status grossly normal Speech and Movement: speech and movement normal Mood: congruent mood Affect: normal affect Attitude: cooperative Thought Process: normal Thought Content: normal Judgment: judgment good Discharge Plan Discharge Plan Patient Disposition: Home Provider Discharge Comment: Please review the written instructions you received when you were discharged from the hospital. Your follow-up appointment will be scheduled for 1 week after your and I look forward to seeing you then. If however in the meanwhile you have any issues, concerns, or questions, please contact me either through the office phone at [phone], or via the patient portal. Discharge orders & Medications Prescriptions: Continued prenat.vits,tal,hhe-mbkl-pwvid Tablet 1 tab PO DAILY Qty: 60 2RF Rx Instructions: Take once daily. Discontinued metformin 1,000 mg tablet 1,000 mg PO BID Humulin N NPH Insulin KwikPen 100 unit/mL (3 mL) insulin pen 28 unit SUBCUT QPM Qty: 15 4RF fluconazole 150 mg tablet 150 mg PO Q3D Qty: 2 4RF Rx Instructions: Repeat second dose 72 hrs after first dose. No Action (DME) insulin syringe-needle U-100 [BD Insulin Syringe] 0.5 mL 29 gauge x 1/2 syringe See Rx Instructions .Route Qty: 200 12RF Rx Instructions: As directed (DME) lancets Misc See Rx Instructions .ROUTE .MEDSUPPLY Qty: 120 3RF Rx Instructions: Testing blood sugars morning fasting and 1 hrs after each meal insulin lispro 100 unit/mL insulin pen 5 unit SUBCUT TID PRN (Reason: High Blood Sugar) Qty: 15 0RF Rx Instructions: Administer 5 units if blood sugar is 200-300; 10 units if 300+ Jardiance 25 mg tablet See Rx Instructions PO DAILY Qty: 90 0RF Rx Instructions: Take 1/2 tab daily for 1 week, then increase to 1 tab daily thereafter rosuvastatin [Crestor] 20 mg tablet See Rx Instructions PO .COMPLEX Qty: 90 3RF Rx Instructions: orally; t1/2 pill before bed for 1 week, then increase to 1 tab before bed thereafter (DME) Dexcom G7 Network Diagnostic Support Specialist Misc See Rx Instructions .Route Qty: 1 0RF Rx Instructions: As directed (DME) Dexcom G7 Sensor Device See Rx Instructions .ROUTE .COMPLEX Qty: 1 3RF Dose Instruction: USE DIRECTED Rx Instructions: USE DIRECTED metformin 1,000 mg tablet 1,000 mg PO BIDWMEAL Qty: 180 3RF Humulin N NPH Insulin KwikPen 100 unit/mL (3 mL) insulin pen 20 unit SUBCUT QPM Qty: 15 4RF oxycodone-acetaminophen [Percocet] 5-325 mg tablet 1 tab PO Q4-6H PRN (Reason: pain) Qty: 20 0RF ondansetron 4 mg tablet,disintegrating 4 mg PO Q8H PRN (Reason: nausea and vomiting) Qty: 10 0RF Follow up/Referrals: Roderick Saldaña MD [Primary Care Provider] - Buddy Meyers MD [Physician] - (1 week check-up 03/05/2023 @ 1500 6 week check-up 04/10/2023 @ 1430) Discharge Health Status Multidrug resistant organism: No MDRO Diet/Activity/Treatments Diet: Diet as Tolerated Activity: As tolerated Other treatments: Ilco-npe-ujqguwb Tylenol and/or ibuprofen may be used for additional pain relief. Tlpz-que-sltwyqe stool softeners and/or MiraLax may be used as needed for constipation. Skin/Wound/Dressing Care Report to your healthcare provider any signs of infection, such as:: chills, fever Dressing: Dressing will be removed at the time of your one-week postop visit Visit Report/Discharge Packet Instructions: DI for , DI for and Nipple Soreness, DI for Prescription Opioid Use Discharge Data Primary Care Provider: Roderick Saldaña
== END 2023-02-28 13:02 | disposition home or self-care (01) | DRG 539 ==
PROVIDERS: Admitting Provider Obstetrics & Gynecology; Family Provider Family Medicine; PCP Family Medicine; Referring Provider Obstetrics & Gynecology; Visit Provider Obstetrics & Gynecology
PROC: 10D00Z1 Extraction of Products of Conception, Low, Open Approach (ICD-10-PCS; CPT 59514; principal; 2023-02-26 07:45)
DX: O34.211 Maternal care for low transverse scar from previous cesarean delivery (principal); O24.425 Gestational diabetes mellitus in childbirth, controlled by oral hypoglycemic drugs; Z3A.37 37 weeks gestation of pregnancy; Z37.0 Single live birth; Z30.2 Encounter for sterilization; Z79.4 Long term (current) use of insulin; Z79.84 Long term (current) use of oral hypoglycemic drugs
CPT/HCPCS: 36415; 58611; 59050; 59514; 85025; 86850; 86900; 86901; J0690; J1885; J2270; J2274; J2405; J2590

== ENCOUNTER → 2023-06-30 15:35 | Outpatient (CLI) | payer OTHER, SELFPAY ==
[2023-06-30 18:09] LABS: Appearance Urine UA CLEAR; Bilirubin Urine UA NEGATIVE (NEGATIVE); Color Urine UA YELLOW; Glucose Urine UA NEGATIVE (Negative); Ketones Urine UA NEGATIVE (NEGATIVE); Leukocyte Esterase Urine UA NEGATIVE (NEGATIVE); Nitrite Urine UA NEGATIVE (Negative); Occult Blood Urine UA TRACE-INTACT (Negative); Protein Urine UA NEGATIVE (Negative); Specific Gravity Urine UA 1.015 (1.000-1.035); Urobilinogen Urine UA 0.2 E.U./dL (0.2)
[2023-06-30 19:14] LABS: Urine Volume 10mL (spun)
[2023-06-30 19:15] LABS: Bacteria Urine None Seen; Culture Indicated Urine Cult Not Indicated; RBC Urine None Seen (0-5/HPF); Squamous Epithelial Cell Urine 0-1 /HPF (0-5/HPF); WBC Urine None Seen (0-5/HPF)
== END ==
PROVIDERS: Family Provider Family Medicine; PCP Family Medicine; Referring Provider Family Medicine; Visit Provider Family Medicine
DX: E11.9 Type 2 diabetes mellitus without complications (principal); R80.9 Proteinuria, unspecified
CPT/HCPCS: 81001

== ENCOUNTER → 2023-09-03 11:03 | Outpatient (CLI) | payer OTHER, SELFPAY ==
[2023-09-03 12:23] LABS: Add Manual Diff / Slide Review NO; Basophils Absolute Auto 100 /uL (0-100); Basophils Percent Auto 0.8 % (0-2); Eosinophils Absolute Auto 300 /uL (0-450); Eosinophils Percent Auto 4.3 % (2-4); Hematocrit 44.5 % (36-46); Hemoglobin 14.8 g/dL (12.0-16.0); Lymphocytes Absolute Auto 2400 /uL (1100-4500); Lymphocytes Percent Auto 31.3 % (25-40); Mean Corpuscular HGB Conc 33.3 % (30-36); Mean Corpuscular Hemoglobin 27.9 PG (26-34); Mean Corpuscular Volume 83.7 fL (80-100); Monocytes Absolute Auto 500 /uL (0-900); Monocytes Percent Auto 6.7 % (3-14); Neutrophils Absolute Auto 4300 /uL (1500-7000); Neutrophils Percent Auto 56.9 % (50-75); Platelet Count 267 X10^3/uL (150-400); Red Blood Cell Count 5.32 X10^6/uL (4.0-5.2); Red Cell Distribution Width 12.4 % (11.6-14.8); White Blood Cell Count 7.5 X10^3/uL (4.5-11.0)
[2023-09-03 12:55] LABS: Alanine Aminotransferase 34 IU/L (<35); Albumin 4.7 g/dL (3.5-5.0); Albumin Globulin Ratio 1.4 (1.0-2.8); Alkaline Phosphatase 101 U/L (38-126); Aspartate Aminotransferase 27 IU/L (14-36); Bilirubin Total 0.8 mg/dL (0.2-1.3); Blood Urea Nitrogen 13 mg/dL (7-17); Calcium 9.1 mg/dL (8.4-10.2); Carbon Dioxide 25 mmol/L (22-32); Chloride 102 mmol/L (98-107); Cholesterol 321 mg/dL (140-199); Estimated Glomerular Filt Rate > 60 mL/min (>60); Globulin 3.4 g/dL (1.7-4.1); Glucose 264 mg/dL (70-100); HDL Cholesterol 49 mg/dL (40-60); HEMOLYSIS < 15 (0-50); LDL Cholesterol Calculated 222 mg/dL (<100); Potassium 4.1 mmol/L (3.4-5.1); Sodium 135 mmol/L (137-145); Total Protein 8.1 g/dL (6.3-8.2); Triglycerides 250 mg/dL (35-150)
[2023-09-03 13:32] LABS: Hemoglobin A1C% w Est Avg Glu 10.6 % (4.0-6.0)
[2023-09-03 14:54] LABS: Vitamin D 25 Hydroxy (D3) 24.6 ng/mL (30.0-100.0)
[2023-09-05 06:10] LABS: Apolipoprotein B 171 mg/dL (<90)
== END ==
PROVIDERS: Family Provider Family Medicine; PCP Family Medicine; Referring Provider Family Medicine; Visit Provider Family Medicine
DX: E11.9 Type 2 diabetes mellitus without complications (principal); E78.5 Hyperlipidemia, unspecified; R80.9 Proteinuria, unspecified; E55.9 Vitamin D deficiency, unspecified
CPT/HCPCS: 36415; 80053; 80061; 82172; 82306; 83036; 85025

== ENCOUNTER 2023-09-17 18:05 | Emergency (ER) | payer OTHER, SELFPAY ==
[2023-09-17] VITALS (12 sets, daily range): BP systolic 102–128; BP diastolic 59–84; PULSE 80–96; RESP 16–25; TEMP 36.8; O2SAT 97–100; BMI 28.3
--- NOTE | 2023-09-17 20:20 | DI.RAD.S_ITS ---
PROCEDURE: XR CHEST 1V INDICATIONS: chest pain TECHNIQUE: One view of the chest was acquired. COMPARISON: [facility], CR, XR CHEST 1V, 11/19/2021, 3:18. FINDINGS: Surgical changes and devices: None. Lungs and pleura: Lungs are clear. No pleural effusions or pneumothorax. Mediastinum: Mediastinal contours appear normal. Heart size is normal. Bones and chest wall: No suspicious bony lesions. Overlying soft tissues appear unremarkable. IMPRESSION: No acute cardiopulmonary abnormality is seen. Dictated by: Boogie Peguero M.D. on 09/17/2023 at 20:45 Approved by: Boogie Peguero M.D. on 09/17/2023 at 20:45
--- NOTE | 2023-09-17 20:20 | PC.NURSE ---
Pt called from waiting room reporting that she is feeling chest pressure. Brought back to hallway bed and EKG/labs/urine obtained.
--- NOTE | 2023-09-17 20:25 | EKG_ITS ---
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
[2023-09-17 20:51] LABS: RBC Urine 0-1/HPF (0-5/HPF); Urine Volume 10mL (spun)
[2023-09-17 20:52] LABS: Bacteria Urine Few (2-10); Culture Indicated Urine Specimen Cultured; Squamous Epithelial Cell Urine 5-10 /HPF (0-5/HPF); WBC Urine 1-5/HPF (0-5/HPF)
[2023-09-17 20:55] LABS: Add Manual Diff / Slide Review NO; Basophils Absolute Auto 100 /uL (0-100); Basophils Percent Auto 0.6 % (0-2); Eosinophils Absolute Auto 300 /uL (0-450); Eosinophils Percent Auto 3.4 % (2-4); Hematocrit 41.7 % (36-46); Hemoglobin 13.9 g/dL (12.0-16.0); Lymphocytes Absolute Auto 2500 /uL (1100-4500); Mean Corpuscular HGB Conc 33.4 % (30-36); Mean Corpuscular Hemoglobin 27.9 PG (26-34); Mean Corpuscular Volume 83.4 fL (80-100); Monocytes Absolute Auto 700 /uL (0-900); Monocytes Percent Auto 7.9 % (3-14); Neutrophils Absolute Auto 5100 /uL (1500-7000); Neutrophils Percent Auto 59.1 % (50-75); Platelet Count 229 X10^3/uL (150-400); Red Cell Distribution Width 12.7 % (11.6-14.8); White Blood Cell Count 8.7 X10^3/uL (4.5-11.0)
[2023-09-17 21:01] LABS: Prothrombin Time 11.3 SECONDS (9.4-12.5)
[2023-09-17 21:04] LABS: PTT Partial Thromboplastin Tim 40 SECONDS (25.1-36.5)
--- NOTE | 2023-09-17 21:15 | ED_ITS ---
HPI - Back Pain/Injury General Chief Complaint: Back Pain/Injury Stated Complaint: Sent by MD; High Blood Sugar 333+, Numbness L Leg Time Seen by Provider: 09/17/23 20:48 Source: patient History of Present Illness HPI Narrative: 38-year-old female with recurrent low back pain, recalls MRI imaging in [place] 3 years ago, no back surgeries or injections or interventions, sometimes right-sided low back pain, sometimes left-sided low back pain, has recent days left low back pain, worse with bending over and twisting and moving. No numbness or weakness to her legs. No incontinence of urine or stool. No injury or trauma new activities. She also has had 2 weeks' duration of intermittent left anterior chest discomfort, not associated with any palpitations or fast heart rate racing heart symptoms, no associated diaphoresis, no associated nausea or vomiting, brief events. No known coronary artery disease. However she does have history of diabetes. Here for evaluation of her chest pain, also would like relief from her low back pain. She does not have any aortic problems, no peripheral vascular or aortic artery interventions. Related Data Previous Rx's Medication Instructions Recorded insulin syringe-needle U-100 0.5 #200 ea 10/17/22 mL 29 gauge x 1/2 (BD Insulin Syringe) lancets #120 ea 10/22/22 prenat.vits,tal,rfz-llye-poday 1 tab PO DAILY #60 tabs 11/21/22 insulin lispro 100 unit/mL 5 unit (0.05 mL) SUBCUT TID PRN 06/18/23 subcutaneous pen High Blood Sugar #15 mL blood-glucose meter,continuous #1 ea 06/30/23 (Dexcom G7 Extrusion Press Supervisor) blood-glucose sensor (Dexcom G7 #1 ea 06/30/23 Sensor device) insulin NPH isoph U-100 human 100 20 unit (0.2 mL) SUBCUT QPM #15 mL 06/30/23 unit/mL (3 mL) subcutaneous pen (Humulin N NPH U-100 Insulin KwikPen) metformin 1,000 mg tablet 1,000 mg PO BIDWMEAL #180 tabs 06/30/23 methocarbamol 500 mg tablet 500 mg PO TID 7 days #21 tabs 09/17/23 Allergies Allergy/AdvReac Type Severity Reaction Status Date / Time No Known Drug Allergies Allergy Verified 06/30/23 15:07 Review of Systems Review of Systems Narrative: per HPI Patient History Medical History (Updated 09/17/23 @ 22:12 by Hasmukh Leavitt MD) COVID-19 Acne (~2011) Sleep apnea (~2017) Disc prolapse (~2015) Mumps Chicken pox Rhinosinusitis (~2010) Painful menstrual periods (~2011) Ovarian cyst (~2011) Irregular menstrual cycle (~2011) Frequent UTI (~2020) Diabetes (~2020) COVID-19 virus infection Cough UTI in Sinusitis Low back problem Polycystic ovarian syndrome Surgical History (Updated 09/04/22 @ 16:32 by Buddy Meyers MD) Previous section History of wisdom tooth extraction Family History Mother Hypertension Family/Other Cervical cancer Sister Thalassemia Sister Iron deficiency anemia Father Diabetes mellitus Asthma Brain tumor Grandfather Hypertension Stroke Grandmother Diabetes mellitus Hyperlipidemia Stroke Grandmother Stroke Social History marital status: number of children: 1 household members: spouse and children lives independently: Yes caregiver/support person: Yes housing: house pets and animals: Yes (Cats aware of toxoplasmosis) 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) occupational status: unemployed current occupational exposures/hazards: No 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 travel history: over 6 months ago seatbelt use: always water heater temp set < 120 deg: Yes working smoke detector in home: Yes fire extinguisher in home: Yes carbon monox detector in home: Yes firearms in home: No do you feel safe at home: Yes Smoking Status: Never smoker second hand exposure: No alcohol intake: former (occasionally when not ) substance use type: does not use during the past year weight has: remained stable well-balanced diet: daily or most days daily servings fruits/ve or more times/day caffeine: Yes (one cup coffee in AM) Type(s) of exercise: walking frequency: daily duration: 15-30 minutes/day Smoking Status: Never smoker Substance Use Type: does not use Exam Narrative Exam Narrative: GENERAL: Well-developed patient, in mild distress. HEAD: Atraumatic. Normocephalic. EYES: Pupils equal round and reactive. Extraocular motions intact. No scleral icterus. No injection or drainage. ENT: Nose without bleeding, purulent drainage. Throat without erythema, tonsillar hypertrophy or exudate. Airway patent. NECK: Trachea midline. Non tender CARDIOVASCULAR: Regular rate and rhythm without murmurs, gallops, or rubs. RESPIRATORY: Clear to auscultation. Breath sounds equal bilaterally. No wheezes, rales, or rhonchi. GASTROINTESTINAL: Abdomen soft, non-tender, nondistended. EXTREMITIES: No edema or joint tenderness. BACK: Nontender without deformity or crepitance. No flank tenderness. Straight leg raise 45? left side, 60? right side, with some low back discomfort side, no radiation to the thigh or leg NEURO: AOx3. SKIN: No rash or erythema of visible areas Initial Vital Signs Initial Vital Signs: Vital Signs Temperature 98.2 F 09/17/23 18:12 Pulse Rate 96 H 09/17/23 18:12 Respiratory Rate 16 09/17/23 18:12 Blood Pressure 124/83 09/17/23 18:12 Pulse Oximetry 97 09/17/23 18:12 Oxygen Delivery Method Room Air 09/17/23 18:12 Course Orders Ordered: ED Orders 09/17/23 20:20 XR chest 1V Stat EKG-12 Lead Stat 09/17/23 20:25 Urine Culture Stat Urine Microscopic Stat 09/17/23 20:45 Complete Blood Count AUTO DIFF Stat Comprehensive Metabolic Panel Stat Lipase Stat Magnesium Stat NT-proBNP (BNP-Adult 18+) Stat PTT Partial Thromboplastin Reynaldo Stat Prothrombin Time INR Stat Troponin & CK Cardiac Panel Stat 09/17/23 23:00 Troponin I Stat Discontinued Medications Aspirin (Aspirin 81 Mg Chew Tab) 324 mg PO NOW ONE Stop: 09/17/23 20:21 Last Admin: 09/17/23 21:25 Dose: Not Given Documented By: CAMMY Ketorolac Tromethamine (Ketorolac 30 Mg/Ml Vial) 15 mg IV NOW ONE Stop: 09/17/23 21:26 Last Admin: 09/17/23 21:31 Dose: 15 mg Documented By: CAMMY Methocarbamol (Methocarbamol 500 Mg Tablet) 500 mg PO NOW ONE Stop: 09/17/23 21:26 Last Admin: 09/17/23 21:32 Dose: 500 mg Documented By: RL Vital Signs Vital signs: Vital Signs - 8 hr 09/17/23 20:28 09/17/23 20:48 09/17/23 20:48 Pulse Rate 87 80 Respiratory Rate 16 16 Blood Pressure 120/76 122/78 Pulse Oximetry 99 99 Oxygen Delivery Method Room Air 09/17/23 21:00 09/17/23 21:00 09/17/23 21:15 Pulse Rate 82 Respiratory Rate 23 Blood Pressure 115/68 102/59 L Pulse Oximetry 97 Oxygen Delivery Method 09/17/23 21:15 09/17/23 21:30 09/17/23 21:30 Pulse Rate 89 86 Respiratory Rate 16 21 Blood Pressure 112/72 Pulse Oximetry 100 97 Oxygen Delivery Method 09/17/23 21:45 09/17/23 21:45 09/17/23 22:00 Pulse Rate 81 Respiratory Rate 17 Blood Pressure 115/70 112/65 Pulse Oximetry 98 Oxygen Delivery Method 09/17/23 22:00 09/17/23 22:15 09/17/23 22:15 Pulse Rate 83 84 Respiratory Rate 22 25 H Blood Pressure 125/66 Pulse Oximetry 97 97 Oxygen Delivery Method 09/17/23 22:30 09/17/23 22:30 09/17/23 22:45 Pulse Rate 84 Respiratory Rate 21 Blood Pressure 128/81 121/77 Pulse Oximetry 98 Oxygen Delivery Method 09/17/23 22:45 09/17/23 23:00 09/17/23 23:00 Pulse Rate 80 80 Respiratory Rate 24 20 Blood Pressure 128/84 Pulse Oximetry 98 99 Oxygen Delivery Method MDM - Back Pain/Injury Lab Data Attestation: I reviewed the patient's lab results. 09/17/23 20:45 09/17/23 20:45 Labs: Lab Results 09/17/23 09/17/23 09/17/23 Range/Units 20:25 20:45 23:00 WBC 8.7 (4.5-11.0) X10^3/uL RBC 5.00 (4.0-5.2) X10^6/uL Hgb 13.9 (12.0-16.0) g/dL Hct 41.7 (36-46) % MCV 83.4 (80-100) fL MCH 27.9 (26-34) PG MCHC 33.4 (30-36) % RDW 12.7 (11.6-14.8) % Plt Count 229 (150-400) X10^3/uL Neut % (Auto) 59.1 (50-75) % Lymph % (Auto) 29.0 (25-40) % Powell % (Auto) 7.9 (3-14) % Eos % (Auto) 3.4 (2-4) % Baso % (Auto) 0.6 (0-2) % Neut # (Auto) 5100 (8659-5393) /uL Lymph # (Auto) 2500 (8230-0711) /uL Powell # (Auto) 700 (0-900) /uL Eos # (Auto) 300 (0-450) /uL Baso # (Auto) 100 (0-100) /uL PT 11.3 (9.4-12.5) SECONDS INR 1.0 (0.9-1.3) APTT 40 H (25.1-36.5) SECONDS Sodium 135 L (137-145) mmol/L Potassium 3.8 (3.4-5.1) mmol/L Chloride 102 (98-107) mmol/L Carbon Dioxide 26 (22-32) mmol/L BUN 18 H (7-17) mg/dL Creatinine 0.55 (0.52-1.04) mg/dL Estimated GFR > 60 (>60) mL/min BUN/Creatinine Ratio 32.7 H (6-22) Glucose 158 H (70-100) mg/dL Calcium 9.2 (8.4-10.2) mg/dL Magnesium 2.0 (1.6-2.3) mg/dL Total Bilirubin 0.5 (0.2-1.3) mg/dL AST 29 (14-36) IU/L ALT 29 (<35) IU/L Alkaline Phosphatase 73 (38-126) U/L Total Creatine Kinase 91 (30-135) U/L Troponin I < 0.012 < 0.012 (0.01-0.034) ng/mL NT-Pro-B Natriuret Pep < 20 (<125) pg/mL Total Protein 8.0 (6.3-8.2) g/dL Albumin 4.5 (3.5-5.0) g/dL Globulin 3.5 (1.7-4.1) g/dL Albumin/Globulin Ratio 1.3 (1.0-2.8) Lipase 112 (23-300) U/L Urine RBC 0-1/hpf (0-5/HPF) Urine WBC 1-5/hpf (0-5/HPF) Ur Squamous Epith Cells 5-10 /hpf H (0-5/HPF) Urine Bacteria Few (2-10) H (None) Ur Culture Indicated? Specimen cultured Vol Urine Centrifuged 10ml (spun) Point of Care Testing Test Results Negative Glucose POC 177 Urine Dip Bedside Urine Glucose 1000 mg/dl Bedside Urine Bilirubin - Negative Bedside Urine Ketone +/- 5 Urine Specific Gobler 1.020 Bedside Urine Occult Blood +/- Bedside Urine pH 6.5 Bedside Urine Protein +/- 15 Bedside Urine Urobilinogen - Negative Bedside Urine Nitrite - Negative Bedside Urine Leukocytes - Negative Esterase Imaging Data Chest x-ray: Radiologist's Impression: [address] [address] XRay Report Signed Patient: Anna Portillo MR#: [id number] : 1985 Acct:[id number] Age/Sex: 38 / F Date of Service: 09/17/23 Loc: ED Accession Number: [id number] Procedure: XR chest 1V Ordering Provider: Hasmukh Leavitt MD PROCEDURE: XR CHEST 1V INDICATIONS: chest pain TECHNIQUE: One view of the chest was acquired. COMPARISON: [facility], , XR CHEST 1V, 11/19/2021, 3:18. FINDINGS: Surgical changes and devices: None. Lungs and pleura: Lungs are clear. No pleural effusions or pneumothorax. Mediastinum: Mediastinal contours appear normal. Heart size is normal. Bones and chest wall: No suspicious bony lesions. Overlying soft tissues appear unremarkable. IMPRESSION: No acute cardiopulmonary abnormality is seen. Dictated by: Boogie Peguero M.D. on 09/17/2023 at 20:45 Approved by: Boogie Peguero M.D. on 09/17/2023 at 20:45 ECG Data Attestation: I personally reviewed and interpreted this ECG as follows: Interpretation: Normal sinus rhythm with rate 84, no obvious ST segment elevation or depression changes. T-wave inversion lead 3 noted but upright in contiguous inferior leads 2 and AVF. MD 172, QRS 82, QTC 444. MDM Narrative Medical decision making narrative: 38-year-old female with recurrent low back pain, remote MRI imaging, no interventions, most recently with left low back pain, IV Toradol, p.o. Robaxin. We did discuss CT imaging lumbar spine, she declines this for now. She also has had intermittent 2 weeks duration of chest discomfort, nonpleuritic, no cough or shortness of breath, no fevers or chills, no known CAD. Screening EKG without obvious ischemic changes, troponin negative, chest x-ray unremarkable. Further cardiac testing as an outpatient. Ziggyaxin sent to her pharmacy to try further as needed. Follow up with PCP advised, call his office tomorrow to arrange further testing and evaluation as an outpatient for now. Return precautions discussed. Home with family. Discharge Plan Departure Patient Disposition: Home Clinical Impression: Chest pain, Left low back pain Activity Restrictions/Additional Instructions: Recurrent low back pain problems, previously right-sided, more recently left- sided, reportedly had MRI back study a few years ago in [facility], no back surgeries or injections or interventions. You seemed to be able to raise her left leg, some tenderness left lumbar per muscular area. We did discuss CT imaging of the lumbar spine, declined for now. You received IV Toradol medication, and has had some improvement in symptoms, along with oral Robaxin/methocarbamol muscle relaxant. You also have had recent chest pain, EKG and serial blood tests not show suggestive of heart attack at this time, chest x-ray negative. Further workup as outpatient for chest pain. Follow up with your regular provider for back pain problems. Trial of Robaxin/methocarbamol muscle relaxant, prescription sent to your pharmacy. Recheck with your regular provider Thursday early next week. Return to this/nearest emergency department for any change worsening symptoms or any concerns prior Prescriptions: New methocarbamol 500 mg tablet 500 mg PO TID 7 Days Qty: 21 0RF No Action (DME) insulin syringe-needle U-100 [BD Insulin Syringe] 0.5 mL 29 gauge x 1/2 syringe See Rx Instructions .Route Qty: 200 12RF Rx Instructions: As directed (DME) lancets Misc See Rx Instructions .ROUTE .MEDSUPPLY Qty: 120 3RF Rx Instructions: Testing blood sugars morning fasting and 1 hrs after each meal prenat.vits,tal,sfu-kcjb-sofon Tablet 1 tab PO DAILY Qty: 60 2RF Rx Instructions: Take once daily. insulin lispro 100 unit/mL insulin pen 5 unit SUBCUT TID PRN (Reason: High Blood Sugar) Qty: 15 0RF Rx Instructions: Administer 5 units if blood sugar is 200-300; 10 units if 300+ (DME) Dexcom G7 Extrusion Press Supervisor Misc See Rx Instructions .Route Qty: 1 0RF Rx Instructions: As directed (DME) Dexcom G7 Sensor Device See Rx Instructions .ROUTE .COMPLEX Qty: 1 3RF Dose Instruction: USE DIRECTED Rx Instructions: USE DIRECTED metformin 1,000 mg tablet 1,000 mg PO BIDWMEAL Qty: 180 3RF Humulin N NPH Insulin KwikPen 100 unit/mL (3 mL) insulin pen 20 unit SUBCUT QPM Qty: 15 4RF Referrals: Roderick Saldaña MD [Primary Care Provider] - Stand Alone Forms: Patient Portal/API
[2023-09-17] MEDS: KETOROLAC 30 MG/ML VIAL 15 MG IV (21:31)
[2023-09-17] MEDS: methocarbamoL 500 MG TABLET PO (21:32)
[2023-09-17 22:16] LABS: Alanine Aminotransferase 29 IU/L (<35); Albumin 4.5 g/dL (3.5-5.0); Albumin Globulin Ratio 1.3 (1.0-2.8); Alkaline Phosphatase 73 U/L (38-126); Aspartate Aminotransferase 29 IU/L (14-36); BUN Creatinine Ratio 32.7 (6-22); Bilirubin Total 0.5 mg/dL (0.2-1.3); Blood Urea Nitrogen 18 mg/dL (7-17); Calcium 9.2 mg/dL (8.4-10.2); Carbon Dioxide 26 mmol/L (22-32); Chloride 102 mmol/L (98-107); Creatine Kinase 91 U/L (30-135); Estimated Glomerular Filt Rate > 60 mL/min (>60); Globulin 3.5 g/dL (1.7-4.1); Glucose 158 mg/dL (70-100); HEMOLYSIS < 15 (0-50); Lipase 112 U/L (23-300); Potassium 3.8 mmol/L (3.4-5.1); Sodium 135 mmol/L (137-145)
[2023-09-17 22:27] LABS: NT-proBNP (BNP-Adult 18+) < 20 pg/mL (<125); Troponin I < 0.012 ng/mL (0.01-0.034)
[2023-09-17 23:30] LABS: Troponin I < 0.012 ng/mL (0.01-0.034)
== END 2023-09-17 23:58 | disposition home or self-care (01) ==
PROVIDERS: Emergency Provider Emergency Medicine; Family Provider Family Medicine; PCP Family Medicine
DX: M54.50 Low back pain, unspecified (principal); R07.9 Chest pain, unspecified; Z79.899 Other long term (current) drug therapy
CPT/HCPCS: 36415; 71045; 80053; 81003; 81015; 81025; 82550; 82962; 83690; 83735; 83880; 84484; 85025; 85610; 85730; 87086; 93005; 93010; 96374; 99284; J1885

== ENCOUNTER 2023-09-23 12:36 | Emergency (ER) | payer OTHER, SELFPAY ==
[2023-09-23 12:37] VITALS: BP 146/100; PULSE 93; RESP 18; TEMP 37.4; O2SAT 100; BMI 27.6
--- NOTE | 2023-09-23 12:56 | DI.US.S_ITS ---
PROCEDURE: US PERIPH VENOUS LOW EXTREM LT INDICATIONS: swelling left calf TECHNIQUE: Real-time imaging, as well as color and pulse Doppler interrogation, were performed of the lower extremity deep veins from the inguinal ligament to the popliteal fossa, with documentation of the visualized calf veins. COMPARISON: None. FINDINGS: The common femoral, femoral, popliteal, and the visualized calf veins are normally compressible, and free of intraluminal thrombus. Color and pulse Doppler demonstrate normal phasic intraluminal flow. There is normal augmentation response to distal compression maneuver. IMPRESSION: No findings of lower extremity deep venous thrombosis. Note: Concordant preliminary findings given by the chemical radiation technician upon the completion of the examination to Dr. Lugo at 1:51 p.m. on September 23, 2023. Dictated by: Benjamin Crocker M.D. on 09/23/2023 at 13:20 Approved by: Benjamin Crocker M.D. on 09/23/2023 at 13:21
[2023-09-23] MEDS: IBUPROFEN 400 MG TABLET 800 MG PO (12:59)
--- NOTE | 2023-09-23 15:03 | ED.LOWEXIN ---
HPI - Extremity Injury (Lower) General Chief Complaint: Extremity Injury, Lower Stated Complaint: swelling left leg, lower back px Time Seen by Provider: 09/23/23 15:03 Source: patient Mode of arrival: Ambulatory History of Present Illness HPI Narrative: Patient brought here by family, patient complains of left lower back pain radiating down the left buttocks down to the posterior left thigh and to the posterior left knee. Has numbness and tingling down to the foot. Patient has long history of chronic back pain since 2006 when she fell down some steps while she was in college. Last MRI was in 2018 of the lumbar spine. Pain is worse in the past few days. No fall or injury or stress on the back. No bowel or bladder incontinence no saddle paresthesia. Patient is diabetic. No fever chills. Related Data Previous Rx's Medication Instructions Recorded insulin syringe-needle U-100 0.5 #200 ea 10/17/22 mL 29 gauge x 1/2 (BD Insulin Syringe) lancets #120 ea 10/22/22 prenat.vits,tal,cjq-gaou-vptch 1 tab PO DAILY #60 tabs 11/21/22 insulin lispro 100 unit/mL 5 unit (0.05 mL) SUBCUT TID PRN 06/18/23 subcutaneous pen High Blood Sugar #15 mL blood-glucose meter,continuous #1 ea 06/30/23 (Dexcom G7 Site Superintendent) blood-glucose sensor (Dexcom G7 #1 ea 06/30/23 Sensor device) insulin NPH isoph U-100 human 100 20 unit (0.2 mL) SUBCUT QPM #15 mL 06/30/23 unit/mL (3 mL) subcutaneous pen (Humulin N NPH U-100 Insulin KwikPen) metformin 1,000 mg tablet 1,000 mg PO BIDWMEAL #180 tabs 06/30/23 ondansetron 4 mg disintegrating 4 mg PO Q8H PRN nausea and 09/23/23 tablet vomiting #10 tabs oxycodone-acetaminophen 5 mg-325 1 tab PO Q4-6H PRN pain #20 tabs 09/23/23 mg tablet (Percocet) Allergies Allergy/AdvReac Type Severity Reaction Status Date / Time No Known Drug Allergies Allergy Verified 06/30/23 15:07 Review of Systems Review of Systems Narrative: GENERAL: negative chills, fatigue, malaise, fever, sweats. HEENT: negative sinus pain, ear pain, sore throat RESPIRATORY: negative dyspnea, cough CARDIOVASCULAR: negative chest pain, palpitations GASTROINTESTINAL: negative nausea, vomiting, abdominal pain : negative dysuria, frequency, hematuria MUSCULOSKELETAL: Positive back and muscle or bony pain SKIN: negative rash, skin lesions NEUROLOGIC: negative weakness, positive numbness Patient History Medical History COVID-19 Acne (~2011) Sleep apnea (~2017) Disc prolapse (~2015) Mumps Chicken pox Rhinosinusitis (~2010) Painful menstrual periods (~2011) Ovarian cyst (~2011) Irregular menstrual cycle (~2011) Frequent UTI (~2020) Diabetes (~2020) COVID-19 virus infection Cough UTI in Sinusitis Low back problem Polycystic ovarian syndrome Surgical History Previous section History of wisdom tooth extraction Family History Mother Hypertension Family/Other Cervical cancer Sister Thalassemia Sister Iron deficiency anemia Father Diabetes mellitus Asthma Brain tumor Grandfather Hypertension Stroke Grandmother Diabetes mellitus Hyperlipidemia Stroke Grandmother Stroke Social History marital status: number of children: 1 household members: spouse and children lives independently: Yes caregiver/support person: Yes housing: house pets and animals: Yes (Cats aware of toxoplasmosis) 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) occupational status: unemployed current occupational exposures/hazards: No abdi/bahai: Born again Nondenominational travel history: over 6 months ago seatbelt use: always water heater temp set < 120 deg: Yes working smoke detector in home: Yes fire extinguisher in home: Yes carbon monox detector in home: Yes firearms in home: No do you feel safe at home: Yes Smoking Status: Never smoker second hand exposure: No alcohol intake: former (occasionally when not ) substance use type: does not use during the past year weight has: remained stable well-balanced diet: daily or most days daily servings fruits/ve or more times/day caffeine: Yes (one cup coffee in AM) Type(s) of exercise: walking frequency: daily duration: 15-30 minutes/day Smoking Status: Never smoker alcohol intake frequency: holidays/special occasions only Substance Use Type: does not use Exam Narrative Exam Narrative: GENERAL: in no distress, not toxic not dyspneic HEAD: Normocephalic. EYES: Pupils equal round ENT: Mucous membranes moist. NECK: Trachea midline. CARDIOVASCULAR: Regular rate and rhythm RESPIRATORY: Clear to auscultation. Breath sounds equal bilaterally. No wheezes, rales, or rhonchi. GASTROINTESTINAL: Abdomen soft, non-tender EXTREMITIES: No gross deformities. BACK: No flank tenderness. Reproducible bilateral left greater than right paralumbar muscle tenderness. Pain with straight leg on the left at 45?. Nontender knee ankle and hip. NEURO: AOx4. Light touch intact to bilateral feet and toes. Strong bilateral patellar reflexes and ankle flexion-extension. SKIN: Warm and dry PSYCH: Not anxious, is cooperative Initial Vital Signs Initial Vital Signs: Vital Signs Temperature 99.3 F 09/23/23 12:37 Pulse Rate 93 H 09/23/23 12:37 Respiratory Rate 18 09/23/23 12:37 Blood Pressure 146/100 H 09/23/23 12:37 Pulse Oximetry 100 09/23/23 12:37 Oxygen Delivery Method Room Air 09/23/23 12:37 Course Orders Ordered: Discontinued Medications Ibuprofen (Ibuprofen 400 Mg Tablet) 800 mg PO NOW ONE Stop: 09/23/23 12:57 Last Admin: 09/23/23 12:59 Dose: 800 mg Documented By: TEAGAN Lorazepam (Lorazepam 0.5 Mg Tablet) 0.5 mg PO NOW ONE Stop: 09/23/23 15:31 Last Admin: 09/23/23 15:35 Dose: Not Given Documented By: SIMONA Ondansetron HCl (Ondansetron 4 Mg Odt) 4 mg SL NOW ONE Stop: 09/23/23 15:13 Last Admin: 09/23/23 15:18 Dose: 4 mg Documented By: SIMONA Oxycodone/Acetaminophen (Oxycodone/Acetaminophen 5/325 Tablet) 2 tab PO NOW ONE Stop: 09/23/23 15:13 Last Admin: 09/23/23 15:18 Dose: 2 tab Documented By: SIMONA Vital Signs Vital signs: Vital Signs - 8 hr 09/23/23 12:37 09/23/23 15:51 09/23/23 15:51 Temperature 99.3 F Pulse Rate 93 H 84 Respiratory Rate 18 Blood Pressure 146/100 H 132/81 Pulse Oximetry 100 99 Oxygen Delivery Method Room Air 09/23/23 16:00 09/23/23 16:00 Temperature Pulse Rate 85 Respiratory Rate Blood Pressure 127/79 Pulse Oximetry 98 Oxygen Delivery Method Room Air MDM - Extremity Injury (Lower) Lab Data Labs: Urine Dip Bedside Urine Glucose 1000 mg/dl Bedside Urine Bilirubin - Negative Bedside Urine Ketone - Negative Urine Specific [place] 1.015 Bedside Urine Occult Blood - Negative Bedside Urine pH 5.5 Bedside Urine Protein - Negative Bedside Urine Urobilinogen - Negative Bedside Urine Nitrite - Negative Bedside Urine Leukocytes - Negative Esterase Imaging Data US - DVT: Radiologist's Impression: [address] [address] Ultrasound Report Signed Patient: Anna Portillo MR#: [id number] : 1985 Acct:[id number] Age/Sex: 38 / F Date of Service: 09/23/23 Loc: ED Accession Number: [id number] Procedure: US perip venous low extrem lt Ordering Provider: Ambrose Lugo MD PROCEDURE: US PERIP VENOUS LOW EXTREM LT INDICATIONS: swelling left calf TECHNIQUE: Real-time imaging, as well as color and pulse Doppler interrogation, were performed of the lower extremity deep veins from the inguinal ligament to the popliteal fossa, with documentation of the visualized calf veins. COMPARISON: None. FINDINGS: The common femoral, femoral, popliteal, and the visualized calf veins are normally compressible, and free of intraluminal thrombus. Color and pulse Doppler demonstrate normal phasic intraluminal flow. There is normal augmentation response to distal compression maneuver. IMPRESSION: No findings of lower extremity deep venous thrombosis. Note: Concordant preliminary findings given by the funeral director upon the completion of the examination to Dr. Lugo at 1:51 p.m. on September 23, 2023. Dictated by: Benjamin Crocker M.D. on 09/23/2023 at 13:20 Approved by: Benjamin Crocker M.D. on 09/23/2023 at 13:21 Extremity x-ray #1: Radiologist's Impression: [address] [id number] Magnetic Resonance Report Signed Patient: Anna Portillo MR#: [id number] : 1985 Acct:[id number] Age/Sex: 38 / F Date of Service: 09/23/23 Loc: ED Accession Number: [id number] Procedure: MR lumbar spine wo con Ordering Provider: Ambrose Lugo MD PROCEDURE: MR LUMBAR SPINE WO CON INDICATIONS: Back pain left leg numbness TECHNIQUE: Noncontrast sagittal T1 spin echo and T2 fast echo, sagittal STIR, and T2 fast spin echo through the lumbar spine. In cases with scoliosis, additional coronal T2 fast spin echo may be performed. COMPARISON: None. FINDINGS: Image quality: Excellent. Alignment and Curvature: There is normal bony alignment. Bone Marrow: Marrow is of normal overall signal. No acute vertebral body compression fractures. Spinal Cord: Conus medullaris terminates at the L1 level. Visualized cord demonstrates normal signal and size. Paraspinous Soft Tissues: No paravertebral masses. T12-L1: Normal appearance. L1-L2: Normal appearance. L2-L3: Normal appearance. L3-L4: Minimal disc bulge. Mild facet hypertrophy. No canal stenosis or foraminal stenosis. L4-L5: Moderate broad-based disc protrusion posteriorly. Facet hypertrophy. Moderate canal stenosis. No foraminal stenosis. L5-S1: Annulus tear. Diffuse disc bulge. Facet hypertrophy. No significant canal stenosis. [id number] left foraminal stenosis. IMPRESSION: 1. Underlying multilevel lower lumbar facet arthropathy. 2. A moderate broad-based posterior disc protrusion at L4-L5 contributes to moderate canal stenosis. 3. Annulus tear plus disc bulge at L5-S1 without canal stenosis. Dictated by: Fly Goodwin M.D. on 09/23/2023 at 15:53 Approved by: Fly Goodwin M.D. on 09/23/2023 at 15:57 Extremity x-ray #2: Radiologist's Impression: [address] [address] XRay Report Signed Patient: Anna Portillo MR#: [id number] : 1985 Acct:[id number] Age/Sex: 38 / F Date of Service: 09/23/23 Loc: ED Accession Number: [id number] Procedure: XR lumbar spine 2-3V Ordering Provider: Ambrose Lugo MD PROCEDURE: XR LUMBAR SPINE 2-3V INDICATIONS: Left side pain TECHNIQUE: 3 views of the lumbar spine were acquired. COMPARISON: None. FINDINGS: Bones: 5 [id number]-[id number] vertebrae are present. Mild levocurvature. No vertebral body compression fractures. No suspicious bony lesions. Mild disc height loss at L5-S1. Soft tissues: Overlying bowel gas pattern is normal. No suspicious soft tissue calcifications. IMPRESSION: Mild disc height loss at L5-S1. Mild levocurvature of lumbar spine. Dictated by: Troy Quesada M.D. on 09/23/2023 at 16:23 Approved by: Troy Quesada M.D. on 09/23/2023 at 16:23 [facility] Narrative Medical decision making narrative: Patient brought here by family, patient complains of left lower back pain radiating down the left buttocks down to the posterior left thigh and to the posterior left knee. Has numbness and tingling down to the foot. Patient has long history of chronic back pain since 2006 when she fell down some steps while she was in college. Last MRI was in 2018 of the lumbar spine. Pain is worse in the past few days. No fall or injury or stress on the back. No bowel or bladder incontinence no saddle paresthesia. Patient is diabetic. No fever chills. Increase lower back pain on the left with straight leg raise 30?. Light touch intact to bilateral feet and toes. Strong bilateral patellar reflexes and ankle flexion-extension bilaterally. Foot warm soft and pink strong pedal pulse brisk cap refills After history and exam x-ray lumbar spine, ibuprofen Percocet Zofran MRI lumbar spine [facility] Medical records reviewed: No recent visit for this complaint Differential considered: Includes but not limited to lumbar radiculopathy cauda equina herniated disc sciatica Imaging studies independently reviewed: X-ray lumbar spine no acute finding ultrasound left leg no DVT MRI spine no acute finding Consultations: None indicated this time. Treatments: Ibuprofen Percocet Zofran Re-evaluations: 4:51 p.m.. Updated patient results. Pain is better. Imaging results are reassuring. Urinalysis negative for nitrites and leuk esterase. Return precautions reviewed with her. No antibiotics are indicated at this time. Discussion: Appropriate for discharge home. Patient likely has lumbar radiculopathy/sciatica. Pain is controlled. Referral for ortho spine provided. Patient has a family doctor for physical therapy. Short course of pain medication appropriate for breakthrough pain. Not toxic at discharge. 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 Return precautions reviewed and she desires discharge home. Diagnosis: Lumbar radiculopathy/sciatica Discharge Plan Departure Patient Disposition: Home Clinical Impression: Sciatica of left side associated with disorder of lumbosacral spine Instructions: DI for Back Pain With Sciatica, DI for Degenerative Disc Disease, DI for Lumbar Radiculopathy Activity Restrictions/Additional Instructions: No driving operating machinery today or when taking prescribed pain medication. Please see your family doctor for follow up and referral for physical therapy. You may need referral to ortho spine, I have given him phone number to Dr. Oh. Please call the office for follow up regarding your back pain. And to review your MRI from today. Return if worse if any questions or concerns. Your workup and exam and imaging are otherwise reassuring today. No urinary tract infection seen on your urine sample today. Prescriptions: New oxycodone-acetaminophen [Percocet] 5-325 mg tablet 1 tab PO Q4-6H PRN (Reason: pain) Qty: 20 0RF ondansetron 4 mg tablet,disintegrating 4 mg PO Q8H PRN (Reason: nausea and vomiting) Qty: 10 0RF No Action (DME) insulin syringe-needle U-100 [BD Insulin Syringe] 0.5 mL 29 gauge x 1/2 syringe See Rx Instructions .Route Qty: 200 12RF Rx Instructions: As directed (DME) lancets Misc See Rx Instructions .ROUTE .MEDSUPPLY Qty: 120 3RF Rx Instructions: Testing blood sugars morning fasting and 1 hrs after each meal prenat.vits,tal,stm-glzm-fmryl Tablet 1 tab PO DAILY Qty: 60 2RF Rx Instructions: Take once daily. insulin lispro 100 unit/mL insulin pen 5 unit SUBCUT TID PRN (Reason: High Blood Sugar) Qty: 15 0RF Rx Instructions: Administer 5 units if blood sugar is 200-300; 10 units if 300+ (DME) Dexcom G7 Site Superintendent Misc See Rx Instructions .Route Qty: 1 0RF Rx Instructions: As directed (DME) Dexcom G7 Sensor Device See Rx Instructions .ROUTE .COMPLEX Qty: 1 3RF Dose Instruction: USE DIRECTED Rx Instructions: USE DIRECTED metformin 1,000 mg tablet 1,000 mg PO BIDWMEAL Qty: 180 3RF Humulin N NPH Insulin KwikPen 100 unit/mL (3 mL) insulin pen 20 unit SUBCUT QPM Qty: 15 4RF Referrals: Roderick Saldaña MD [Primary Care Provider] - Dante Oh MD [Physician] - Stand Alone Forms: Patient Portal/API
--- NOTE | 2023-09-23 15:11 | DI.MRI.S_ITS ---
PROCEDURE: MR LUMBAR SPINE WO CON INDICATIONS: Back pain left leg numbness TECHNIQUE: Noncontrast sagittal T1 spin echo and T2 fast echo, sagittal STIR, and T2 fast spin echo through the lumbar spine. In cases with scoliosis, additional coronal T2 fast spin echo may be performed. COMPARISON: None. FINDINGS: Image quality: Excellent. Alignment and Curvature: There is normal bony alignment. Bone Marrow: Marrow is of normal overall signal. No acute vertebral body compression fractures. Spinal Cord: Conus medullaris terminates at the L1 level. Visualized cord demonstrates normal signal and size. Paraspinous Soft Tissues: No paravertebral masses. T12-L1: Normal appearance. L1-L2: Normal appearance. L2-L3: Normal appearance. L3-L4: Minimal disc bulge. Mild facet hypertrophy. No canal stenosis or foraminal stenosis. L4-L5: Moderate broad-based disc protrusion posteriorly. Facet hypertrophy. Moderate canal stenosis. No foraminal stenosis. L5-S1: Annulus tear. Diffuse disc bulge. Facet hypertrophy. No significant canal stenosis. Ftnq-do-sxzlrfbv left foraminal stenosis. IMPRESSION: 1. Underlying multilevel lower lumbar facet arthropathy. 2. A moderate broad-based posterior disc protrusion at L4-L5 contributes to moderate canal stenosis. 3. Annulus tear plus disc bulge at L5-S1 without canal stenosis. Dictated by: Fly Goodwin M.D. on 09/23/2023 at 15:53 Approved by: Fly Goodwin M.D. on 09/23/2023 at 15:57
--- NOTE | 2023-09-23 15:12 | DI.RAD.S_ITS ---
PROCEDURE: XR LUMBAR SPINE 2-3V INDICATIONS: Left side pain TECHNIQUE: 3 views of the lumbar spine were acquired. COMPARISON: None. FINDINGS: Bones: 5 [id number]-[id number] vertebrae are present. Mild levocurvature. No vertebral body compression fractures. No suspicious bony lesions. Mild disc height loss at L5-S1. Soft tissues: Overlying bowel gas pattern is normal. No suspicious soft tissue calcifications. IMPRESSION: Mild disc height loss at L5-S1. Mild levocurvature of lumbar spine. Dictated by: Troy Quesada M.D. on 09/23/2023 at 16:23 Approved by: Tryo Quesada M.D. on 09/23/2023 at 16:23
[2023-09-23] MEDS: ONDANSETRON 4 MG ODT SL (15:18)
[2023-09-23] MEDS: OXYCODONE/ACETAMINOPHEN 5/325 TABLET 2 TAB PO (15:18)
[2023-09-23 15:51] VITALS: BP 132/81; PULSE 84; O2SAT 99
[2023-09-23 16:00] VITALS: BP 127/79; PULSE 85; O2SAT 98
[2023-09-23 16:30] VITALS: BP 133/76; PULSE 93; RESP 18; O2SAT 98
== END 2023-09-23 17:00 | disposition home or self-care (01) ==
PROVIDERS: Emergency Provider Emergency Medicine; Family Provider Family Medicine; PCP Family Medicine
DX: M54.42 Lumbago with sciatica, left side (principal); M53.9 Dorsopathy, unspecified
CPT/HCPCS: 72100; 72148; 81003; 93971; 99283; 99284

== ENCOUNTER → 2023-11-27 08:51 | Outpatient (CLI) | payer OTHER, SELFPAY | PROVIDERS: Family Provider Family Medicine; PCP Family Medicine; Visit Provider Nurse Practitioner Family | DX: N39.0 Urinary tract infection, site not specified (principal); N89.8 Other specified noninflammatory disorders of vagina | CPT/HCPCS: 87077; 87086; 87186; 87210 ==

== ENCOUNTER → 2023-12-19 09:15 | Outpatient (CLI) | payer OTHER, SELFPAY ==
[2023-12-19 09:59] LABS: Add Manual Diff / Slide Review NO; Basophils Absolute Auto 100 /uL (0-100); Basophils Percent Auto 0.9 % (0-2); Eosinophils Absolute Auto 300 /uL (0-450); Eosinophils Percent Auto 3.2 % (2-4); Hematocrit 44.2 % (36-46); Hemoglobin 14.4 g/dL (12.0-16.0); Lymphocytes Absolute Auto 2500 /uL (1100-4500); Lymphocytes Percent Auto 31.6 % (25-40); Mean Corpuscular HGB Conc 32.6 % (30-36); Mean Corpuscular Hemoglobin 27.4 PG (26-34); Mean Corpuscular Volume 84.1 fL (80-100); Monocytes Absolute Auto 500 /uL (0-900); Monocytes Percent Auto 6.8 % (3-14); Neutrophils Absolute Auto 4600 /uL (1500-7000); Neutrophils Percent Auto 57.5 % (50-75); Platelet Count 243 X10^3/uL (150-400); Red Blood Cell Count 5.26 X10^6/uL (4.0-5.2); Red Cell Distribution Width 13.1 % (11.6-14.8)
[2023-12-19 10:20] LABS: Alanine Aminotransferase 20 IU/L (<35); Albumin 4.5 g/dL (3.5-5.0); Albumin Globulin Ratio 1.3 (1.0-2.8); Alkaline Phosphatase 84 U/L (38-126); Aspartate Aminotransferase 20 IU/L (14-36); BUN Creatinine Ratio 32.7 (6-22); Bilirubin Total 0.5 mg/dL (0.2-1.3); Blood Urea Nitrogen 17 mg/dL (7-17); Calcium 9.9 mg/dL (8.4-10.2); Carbon Dioxide 23 mmol/L (22-32); Chloride 103 mmol/L (98-107); Cholesterol 162 mg/dL (140-199); Estimated Glomerular Filt Rate > 60 mL/min (>60); Globulin 3.4 g/dL (1.7-4.1); Glucose 167 mg/dL (70-100); HDL Cholesterol 50 mg/dL (40-60); HEMOLYSIS < 15 (0-50); LDL Cholesterol Calculated 91 mg/dL (<100); Potassium 4.5 mmol/L (3.4-5.1); Sodium 135 mmol/L (137-145); Total Protein 7.9 g/dL (6.3-8.2); Triglycerides 104 mg/dL (35-150)
[2023-12-19 10:48] LABS: TSH w/ Reflex to FT4 0.75 uIU/mL (0.47-4.68)
[2023-12-20 08:10] LABS: Apolipoprotein B 81 mg/dL (<90)
== END ==
PROVIDERS: Family Provider Family Medicine; PCP Family Medicine; Referring Provider Family Medicine; Visit Provider Family Medicine
DX: M53.87 Other specified dorsopathies, lumbosacral region (principal); E11.9 Type 2 diabetes mellitus without complications; M54.50 Low back pain, unspecified; R80.9 Proteinuria, unspecified; E78.5 Hyperlipidemia, unspecified
CPT/HCPCS: 36415; 80053; 80061; 82172; 84443; 85025

== ENCOUNTER → 2024-03-17 11:55 | Outpatient (CLI) | payer BC, SELFPAY ==
[2024-03-17 13:10] LABS: Hemoglobin A1C% w Est Avg Glu 6.7 % (4.0-6.0)
[2024-03-17 13:15] LABS: Alanine Aminotransferase 19 IU/L (<35); Albumin 4.8 g/dL (3.5-5.0); Albumin Globulin Ratio 1.5 (1.0-2.8); Alkaline Phosphatase 75 U/L (38-126); Aspartate Aminotransferase 24 IU/L (14-36); BUN Creatinine Ratio 26.8 (6-22); Bilirubin Total 0.7 mg/dL (0.2-1.3); Blood Urea Nitrogen 19 mg/dL (7-17); Calcium 9.6 mg/dL (8.4-10.2); Carbon Dioxide 22 mmol/L (22-32); Chloride 105 mmol/L (98-107); Estimated Glomerular Filt Rate > 60 mL/min (>60); Globulin 3.3 g/dL (1.7-4.1); Glucose 129 mg/dL (70-100); HEMOLYSIS < 15 (0-50); Potassium 4.3 mmol/L (3.4-5.1); Sodium 139 mmol/L (137-145); Total Protein 8.1 g/dL (6.3-8.2)
[2024-03-17 13:52] LABS: Cholesterol 153 mg/dL (140-199); HDL Cholesterol 42 mg/dL (40-60); LDL Cholesterol Calculated 89 mg/dL (<100); Triglycerides 108 mg/dL (35-150)
== END ==
LOC: LAB 11:59
PROVIDERS: Family Provider Family Medicine; PCP Family Medicine; Referring Provider Family Medicine; Visit Provider Family Medicine
DX: E11.9 Type 2 diabetes mellitus without complications (principal); E78.5 Hyperlipidemia, unspecified
CPT/HCPCS: 36415; 80053; 80061; 83036

== ENCOUNTER → 2024-06-14 06:58 | Outpatient (CLI) | payer BC, SELFPAY ==
[2024-06-14 07:48] LABS: Hemoglobin A1C% w Est Avg Glu 6.2 % (4.0-6.0)
[2024-06-14 08:10] LABS: Creatinine Urine Random 100.08 mg/dL
[2024-06-14 08:14] LABS: Microalbumin Urine Random 2.9 mg/dL (0-1.6)
== END ==
PROVIDERS: Family Provider Family Medicine; PCP Family Medicine; Referring Provider Family Medicine; Visit Provider Family Medicine
DX: E11.9 Type 2 diabetes mellitus without complications (principal); E78.5 Hyperlipidemia, unspecified; R80.9 Proteinuria, unspecified
CPT/HCPCS: 36415; 82043; 82570; 83036

== ENCOUNTER → 2024-10-15 07:34 | Outpatient (CLI) | payer BC, SELFPAY ==
[2024-10-15 09:06] LABS: Hemoglobin A1C% w Est Avg Glu 6.8 % (4.0-6.0)
[2024-10-15 09:11] LABS: Alanine Aminotransferase 16 IU/L (<35); Albumin 4.6 g/dL (3.5-5.0); Albumin Globulin Ratio 1.5 (1.0-2.8); Alkaline Phosphatase 62 U/L (38-126); Blood Urea Nitrogen 11 mg/dL (7-17); Calcium 9.5 mg/dL (8.4-10.2); Carbon Dioxide 24 mmol/L (22-32); Chloride 102 mmol/L (98-107); Cholesterol 265 mg/dL (140-199); Estimated Glomerular Filt Rate > 60 mL/min (>60); Globulin 3.0 g/dL (1.7-4.1); Glucose 161 mg/dL (70-99); HDL Cholesterol 48 mg/dL (40-60); HEMOLYSIS < 15 (0-50); Potassium 4.4 mmol/L (3.4-5.1); Sodium 136 mmol/L (137-145); Total Protein 7.6 g/dL (6.3-8.2); Triglycerides 217 mg/dL (35-150)
== END ==
PROVIDERS: Family Provider Family Medicine; PCP Family Medicine; Referring Provider Family Medicine; Visit Provider Family Medicine
DX: E11.9 Type 2 diabetes mellitus without complications (principal); E78.5 Hyperlipidemia, unspecified; R80.9 Proteinuria, unspecified
CPT/HCPCS: 36415; 80053; 80061; 82172; 83036

== ENCOUNTER → 2024-10-21 11:08 | Outpatient (CLI) | payer BC, SELFPAY | PROVIDERS: Family Provider Family Medicine; PCP Family Medicine; Visit Provider Nurse Practitioner Family | DX: R30.0 Dysuria (principal); N94.9 Unspecified condition associated with female genital organs and menstrual cycle | CPT/HCPCS: 87086; 87210 ==

== ENCOUNTER → 2025-01-18 14:57 | Outpatient (CLI) | payer BC, SELFPAY ==
--- NOTE | 2025-01-18 14:59 | DI.MG.S_ITS ---
MM screening mammo BI: 01/18/2025. BI-RADS: 1 CLINICAL: 39-year old female for bilateral screening mammogram. Tyrer-Cuzick lifetime risk of 15.8%. No personal or first-degree family history of breast cancer. PRIOR EXAMS: None. This is a baseline mammogram. MAMMOGRAPHY TECHNIQUE: 2D and 3D (tomosynthesis) digital mammographic views obtained, with additional images as needed for full coverage. Current study was also evaluated with a Computer Aided Detection (CAD) system. DENSITY C. The breasts are heterogeneously dense, which may obscure small masses. MAMMOGRAPHY FINDINGS Bilateral: No suspicious mass, asymmetry, microcalcification, or other abnormality seen. IMPRESSION: * No evidence of malignancy. RECOMMENDATIONS Bilateral * Annual screening mammography. OVERALL ASSESSMENT CATEGORY BI-RADS-1: Negative. The [employer] recommends annual screening mammography beginning at age 40 for women with average risk of breast cancer. ELECTRONICALLY SIGNED: Mohan Merrill M.D. on 01/19/2025 at 11:24:39 AM PT Interpreting Station ID: [id number]
== END ==
PROVIDERS: PCP Family Medicine; Referring Provider Family Medicine; Visit Provider Family Medicine
DX: Z12.31 Encounter for screening mammogram for malignant neoplasm of breast (principal); R92.333 Mammographic heterogeneous density, bilateral breasts
CPT/HCPCS: 77063; 77067

== ENCOUNTER → 2025-01-23 07:04 | Outpatient (CLI) | payer BC, SELFPAY ==
[2025-01-23 07:41] LABS: Hemoglobin A1C% w Est Avg Glu 6.5 % (4.0-6.0)
[2025-01-23 07:50] LABS: Alanine Aminotransferase 21 IU/L (<35); Albumin 4.9 g/dL (3.5-5.0); Albumin Globulin Ratio 1.4 (1.0-2.8); Alkaline Phosphatase 72 U/L (38-126); Blood Urea Nitrogen 12 mg/dL (7-17); Calcium 9.1 mg/dL (8.4-10.2); Carbon Dioxide 21 mmol/L (22-32); Chloride 106 mmol/L (98-107); Cholesterol 189 mg/dL (140-199); Estimated Glomerular Filt Rate > 60 mL/min (>60); Globulin 3.4 g/dL (1.7-4.1); Glucose 165 mg/dL (70-99); HDL Cholesterol 48 mg/dL (40-60); HEMOLYSIS < 15 (0-50); Potassium 4.0 mmol/L (3.4-5.1); Sodium 139 mmol/L (137-145); Total Protein 8.3 g/dL (6.3-8.2); Triglycerides 218 mg/dL (35-150)
[2025-01-23 07:52] LABS: Add Manual Diff / Slide Review NO; Hematocrit 43.3 % (36-46); Hemoglobin 14.4 g/dL (12.0-16.0); Lymphocytes Absolute Auto 2200 /uL (1100-4500); Mean Corpuscular HGB Conc 33.3 % (30-36); Mean Corpuscular Hemoglobin 26.8 PG (26-34); Mean Corpuscular Volume 80.4 fL (80-100); Platelet Count 224 X10^3/uL (150-400)
[2025-01-23 08:30] LABS: Microalbumi Creatinin Ratio Ur 42.0 ug/mg CR (<30)
== END ==
PROVIDERS: PCP Family Medicine; Referring Provider Family Medicine; Visit Provider Family Medicine
DX: E11.9 Type 2 diabetes mellitus without complications (principal); E78.5 Hyperlipidemia, unspecified; R80.9 Proteinuria, unspecified
CPT/HCPCS: 36415; 80053; 80061; 82043; 82570; 83036; 85025